=== PATIENT | female | born 1970 | race Caucasian/White ===

== ENCOUNTER → 2016-10-23 | Outpatient (CLI) | payer OTHER ==
--- NOTE | 2016-10-23 11:32 | REPMRS ---
Patient History The patient states she had a clinical breast exam in Patient is postmenopausal. Family history of prostate cancer in maternal grandfather and endometrial cancer in mother at age 50 or over. Digital Woman Screen Mammo: October 23, 2016 - Exam #: [id number] Bilateral CC and MLO view(s) were taken. Technologist: Sarah Lopez, Technologist Prior study comparison: October 22, 2015, digital woman screen mammo performed at [facility]. October 20, 2014, digital woman screen mammo performed at [facility]. FINDINGS: There are scattered fibroglandular densities. There has been no change in the appearance of the mammogram from the prior studies. There is a mild amount of residual fibroglandular tissue which is fairly symmetric. There is no interval development of dominant mass, architectural distortion, or clustered microcalcification suggestive of malignancy. Scattered lymph nodes are seen in the right axilla. No significant changes when compared with prior studies. ASSESSMENT: BI-RADS/ACR category 2 mammogram. Benign finding(s). Recommendation Routine screening mammogram in 1 year (for women over age 40). This mammogram was interpreted with the aid of an FDA-approved computer-aided dectection system. A. Negative x-ray reports should not delay biopsy if a dominant or clinically suspicious mass is present. B. Four to eight percent of cancers are not identified by mammography. C. Adenosis and dense breast may obscure an underlying neoplasm. Electronically Signed By: Dheeraj Gloria MD 10/23/16 0852
== END ==
LOC: M WHC 10:19
PROVIDERS: ATTEND Nurse Practitioner Women's Health
DX: Z12.31 Encounter for screening mammogram for malignant neoplasm of breast (principal)

== ENCOUNTER → 2016-10-23 | Outpatient (REF) | payer OTHER | LOC: M SFHCWAGY 10:37 | PROVIDERS: ATTEND Nurse Practitioner Women's Health | DX: Z12.4 Encounter for screening for malignant neoplasm of cervix (principal) ==

== ENCOUNTER → 2017-06-15 | Outpatient (CLI) | payer OTHER ==
[2017-06-15 13:35] LABS: BASO % 0.8 % (0.0-1.0); EOS # 0.1 10^3/uL (0.0-0.50); EOS % 2.3 % (0.0-3.0); IMMATURE GRANULOCYTE % 0.2 % (0-0); LYMPH # 1.7 10^3/uL (1.5-4.5); LYMPH % 32.4 % (24.0-44.0); MEAN CORPUSCULAR HEMOGLOBIN 27.6 pg (27.0-33.0); MEAN CORPUSCULAR VOLUME 88.9 fl (80.0-96.0); MONO # 0.5 10^3/uL (0.0-0.8); MONO % 8.6 % (0.0-5.0); NEUTROPHILS # 2.9 10^3/uL (1.8-7.7); NEUTROPHILS % 55.7 % (36.0-66.0); RED CELL DISTRIBUTION WIDTH 14.6 % (11.5-14.5); WHITE BLOOD COUNT 5.3 10^3/uL (4.0-10.0)
[2017-06-15 14:00] LABS: ALBUMIN 3.7 GM/DL (3.2-5.2); ALBUMIN/GLOBULIN RATIO 1.03 (1.00-1.93); ALKALINE PHOSPHATASE 95 U/L (45-117); ALT/SGPT 27 U/L (12-78); ANION GAP 7 MEQ/L (8-16); AST/SGOT 21 U/L (7-37); BILIRUBIN,TOTAL 0.4 MG/DL (0.2-1.0); BLOOD UREA NITROGEN 11 MG/DL (7-18); CALCIUM LEVEL 9.3 MG/DL (8.5-10.1); CARBON DIOXIDE LEVEL 28 MEQ/L (21-32); CHLORIDE LEVEL 107 MEQ/L (98-107); CHOLESTEROL LEVEL 172 MG/DL (<200); CREATININE FOR GFR 0.67 MG/DL (0.55-1.02); FREE T4 1.08 NG/DL (0.76-1.46); GLOMERULAR FILTRATION RATE > 60.0 (>58); GLUCOSE, FASTING 83 MG/DL (70-105); SODIUM LEVEL 142 MEQ/L (136-145); TOTAL PROTEIN 7.3 GM/DL (6.4-8.2); TRIGLYCERIDES LEVEL 39 MG/DL (<150)
[2017-06-15 14:10] LABS: POTASSIUM SERUM 5.4 MEQ/L (3.5-5.1)
[2017-06-15 14:19] LABS: ADD MANUAL DIFFER NO; DIFF SLIDE NUMBER 126; PLATELET COUNT, AUTOMATED 277 10^3/uL (150-450); PLT CLUMPS? POS FLAG; POS COUNT POS FLAG
== END ==
LOC: M SMT 08:00
PROVIDERS: ATTEND Family Medicine
DX: Z13.220 Encounter for screening for lipoid disorders (principal); Z13.29 Encounter for screening for other suspected endocrine disorder; Z13.0 Encounter for screening for diseases of the blood and blood-forming organs and certain disorders involving the immune mechanism

== ENCOUNTER → 2017-10-24 | Outpatient (REF) | payer OTHER | LOC: M SFHCWAGY 09:46 | DX: Z12.4 Encounter for screening for malignant neoplasm of cervix (principal) | CPT/HCPCS: G0123 ==

== ENCOUNTER → 2017-10-24 | Outpatient (CLI) | payer OTHER | LOC: M WHC 08:51 | DX: Z12.31 Encounter for screening mammogram for malignant neoplasm of breast (principal); Z78.0 Asymptomatic menopausal state | CPT/HCPCS: 77067 ==

== ENCOUNTER → 2018-06-21 | Outpatient (CLI) | payer OTHER ==
[2018-06-21 09:10] LABS: BASO % 0.5 % (0.0-1.0); EOS # 0.2 10^3/uL (0.0-0.50); EOS % 3.4 % (0.0-3.0); HEMOGLOBIN 13.8 g/dl (12.0-15.5); IMMATURE GRANULOCYTE % 0.4 % (0-3.0); LYMPH # 1.8 10^3/uL (1.5-4.5); LYMPH % 32.3 % (24.0-44.0); MEAN CORPUSCULAR HEMOGLOBIN 27.8 pg (27.0-33.0); MEAN CORPUSCULAR HGB CONC 31.4 g/dl (32.0-36.5); MEAN CORPUSCULAR VOLUME 88.5 fl (80.0-96.0); MONO # 0.4 10^3/uL (0.0-0.8); MONO % 7.5 % (0.0-5.0); NEUTROPHILS # 3.1 10^3/uL (1.8-7.7); NEUTROPHILS % 55.9 % (36.0-66.0); PLATELET COUNT, AUTOMATED 371 10^3/uL (150-450); RED BLOOD COUNT 4.97 10^6/uL (4.00-5.40); RED CELL DISTRIBUTION WIDTH 13.6 % (11.5-14.5); WHITE BLOOD COUNT 5.6 10^3/uL (4.0-10.0)
[2018-06-21 10:19] LABS: ALBUMIN 3.5 GM/DL (3.2-5.2); ALBUMIN/GLOBULIN RATIO 0.83 (1.00-1.93); ALKALINE PHOSPHATASE 110 U/L (45-117); ALT/SGPT 43 U/L (12-78); ANION GAP 7 MEQ/L (8-16); AST/SGOT 23 U/L (7-37); BILIRUBIN,TOTAL 0.3 MG/DL (0.2-1.0); BLOOD UREA NITROGEN 11 MG/DL (7-18); CALCIUM LEVEL 8.8 MG/DL (8.5-10.1); CARBON DIOXIDE LEVEL 28 MEQ/L (21-32); CHLORIDE LEVEL 107 MEQ/L (98-107); CHOLESTEROL LEVEL 188 MG/DL (<200); CHOLESTEROL RISK RATIO 2.647 (<5); CREATININE FOR GFR 0.75 MG/DL (0.55-1.30); FREE T4 0.93 NG/DL (0.76-1.46); GLOMERULAR FILTRATION RATE > 60.0 (>58); GLUCOSE, FASTING 76 MG/DL (70-100); HDL CHOLESTEROL 71 MG/DL (>40); LDL CHOLESTEROL 106 MG/DL (<100); NON-HDL-C 117 MG/DL; POTASSIUM SERUM 4.1 MEQ/L (3.5-5.1); SODIUM LEVEL 142 MEQ/L (136-145); TOTAL PROTEIN 7.7 GM/DL (6.4-8.2); TRIGLYCERIDES LEVEL 54 MG/DL (<150)
[2018-06-21 10:43] LABS: ESTIMATED AVERAGE GLUCOSE 105 MG/DL (60-110); HEMOGLOBIN A1c 5.3 %
== END ==
LOC: M LAB 08:33
DX: Z13.220 Encounter for screening for lipoid disorders (principal); Z13.29 Encounter for screening for other suspected endocrine disorder; Z13.0 Encounter for screening for diseases of the blood and blood-forming organs and certain disorders involving the immune mechanism
CPT/HCPCS: 84443

== ENCOUNTER → 2018-10-25 | Outpatient (CLI) | payer OTHER ==
--- NOTE | 2018-10-25 09:14 | REPMRS ---
Patient History The patient states she had a clinical breast exam in 09/2018. Patient is postmenopausal. Family history of prostate cancer in maternal grandfather, endometrial cancer at age 50 or over in mother. No Hormone Replacement Therapy 3D TOMOSYNTHESIS WAS PERFORMED. Digital Woman Screen Mammo: October 25, 2018 - Exam #: [id number] Bilateral CC and MLO view(s) were taken. Technologist: Trini Jain, Technologist Prior study comparison: October 24, 2017, digital woman screen mammo performed at [facility]. October 23, 2016, digital woman screen mammo performed at [facility]. FINDINGS: There are scattered fibroglandular densities. There has been no change in the appearance of the mammogram from the prior studies. There is a mild amount of residual fibroglandular tissue which is fairly symmetric. There is no interval development of dominant mass, architectural distortion, or clustered microcalcification suggestive of malignancy. Assessment: BI-RADS/ACR category 1 mammogram. Negative Mammogram. Recommendation Routine screening mammogram in 1 year (for women over age 40). This mammogram was interpreted with the aid of an FDA-approved computer-aided dectection system. Electronically Signed By: Sravan Butler MD 10/25/18 0914
== END ==
LOC: M WHC 08:29
PROVIDERS: ATTEND Nurse Practitioner Women's Health
DX: Z12.31 Encounter for screening mammogram for malignant neoplasm of breast (principal); Z80.42 Family history of malignant neoplasm of prostate; Z80.49 Family history of malignant neoplasm of other genital organs

== ENCOUNTER → 2019-02-21 | Outpatient (CLI) | payer OTHER ==
--- NOTE | 2019-02-21 09:40 | REP ---
Lumbar spine seven views and lateral views: There are no comparisons. Vertebral body heights and alignment are normal. There is degenerative disc disease at L 03/04, 04/05 and L5 S1. There is no spondylolysis or spondylolisthesis. There is no listhesis on the lateral views in flexion or extension. The pedicles and facets are unremarkable. The sacroiliac articulations are unremarkable. Impression: Degenerative disc disease at L3-4, 04/05 and L5 S1. There is no spondylolysis or spondylolisthesis. There is no listhesis on the lateral views in flexion or extension. Electronically Signed by Sravan Monterroso MD 02/21/2019 09:32 A
--- NOTE | 2019-02-21 09:40 | REP ---
AP pelvis: Mineralization is normal. The sacroiliac articulations are unremarkable. The right and left hip articulations are unremarkable. There are no calcifications. There is no fracture. Impression: Negative AP pelvis. Electronically Signed by Sravan Monterroso MD 02/21/2019 09:32 A
== END ==
LOC: M SMT 09:15
PROVIDERS: ATTEND Physician Assistant
DX: M51.36 Other intervertebral disc degeneration, lumbar region (principal); M51.37 Other intervertebral disc degeneration, lumbosacral region

== ENCOUNTER → 2019-12-26 | Outpatient (REF) | payer OTHER | LOC: M SFHCWAGY 17:42 | PROVIDERS: ATTEND Nurse Practitioner Women's Health | DX: Z12.4 Encounter for screening for malignant neoplasm of cervix (principal) ==

== ENCOUNTER → 2019-12-26 | Outpatient (CLI) | payer OTHER ==
--- NOTE | 2019-12-26 11:11 | REPMRS ---
Patient History The patient states she had a clinical breast exam in November 2019.Family history of prostate cancer in maternal grandfather, endometrial cancer at age 50 or over in mother. No Hormone Replacement Therapy Digital Woman Screen Mammo: December 26, 2019 - Exam #: [id number] Bilateral CC and MLO view(s) were taken. Technologist: Jess Rojas, Technologist Prior study comparison: October 25, 2018, bilateral digital woman screen mammo performed at [facility]. October 24, 2017, digital woman screen mammo performed at [facility]. October 23, 2016, digital woman screen mammo performed at [facility]. FINDINGS: The breast tissue is almost entirely fat. The Volpara volumetric breast density category is: A. There has been no change in the appearance of the mammogram from the prior studies. There is no interval development of dominant mass, architectural distortion, or grouped microcalcification typical of malignancy. 3-D tomosynthesis shows no additional findings. Assessment: BI-RADS/ACR category 1 mammogram. Negative Mammogram. Recommendation Routine screening mammogram of both breasts in 1 year (for women over age 40). This patient's Lifetime Breast Cancer RIsk is estimated at 11.4 %. This mammogram was interpreted with the aid of an FDA-approved computer-aided dectection system. Electronically Signed By: Fabian Calixto MD 12/26/19 7179
== END ==
LOC: M WHC 08:54
PROVIDERS: ATTEND Nurse Practitioner Women's Health
DX: Z12.31 Encounter for screening mammogram for malignant neoplasm of breast (principal)

== ENCOUNTER → 2020-01-26 | Outpatient (CLI) | payer OTHER ==
[2020-01-26 12:48] LABS: BASO # 0.1 10^3/uL (0.0-0.2); EOS # 0.1 10^3/uL (0.0-0.5); HEMATOCRIT 43.3 % (36.0-47.0); HEMOGLOBIN 13.4 g/dl (12.0-15.5); LYMPH % 33.8 % (24.0-44.0); MEAN CORPUSCULAR HEMOGLOBIN 27.9 pg (27.0-33.0); MEAN CORPUSCULAR HGB CONC 30.9 g/dl (32.0-36.5); MONO # 0.5 10^3/uL (0.0-0.8); MONO % 7.8 % (0.0-5.0); NEUTROPHILS # 3.3 10^3/uL (1.5-8.5); NEUTROPHILS % 55.1 % (36.0-66.0); PLATELET COUNT, AUTOMATED 369 10^3/uL (150-450); RED BLOOD COUNT 4.81 10^6/uL (4.00-5.40)
[2020-01-26 12:59] LABS: ALBUMIN 3.7 GM/DL (3.2-5.2); ALT/SGPT 25 U/L (12-78); BILIRUBIN,TOTAL 0.4 MG/DL (0.2-1.0); BLOOD UREA NITROGEN 14 MG/DL (7-18); CALCIUM LEVEL 9.5 MG/DL (8.5-10.1); CARBON DIOXIDE LEVEL 30 MEQ/L (21-32); CHLORIDE LEVEL 108 MEQ/L (98-107); CHOLESTEROL LEVEL 187 MG/DL (<200); CHOLESTEROL RISK RATIO 2.633 (<5); FREE T4 1.04 NG/DL (0.76-1.46); GLOMERULAR FILTRATION RATE > 60.0 (>58); GLUCOSE, FASTING 80 MG/DL (70-100); HDL CHOLESTEROL 71 MG/DL (>40); LDL CHOLESTEROL 106 MG/DL (<100); NON-HDL-C 116 MG/DL; SODIUM LEVEL 143 MEQ/L (136-145); TOTAL PROTEIN 7.8 GM/DL (6.4-8.2); TRIGLYCERIDES LEVEL 51 MG/DL (<150)
[2020-01-26 13:02] LABS: TOTAL 25(OH) VITAMIN D 22.9 NG/ML (30.0-100.0)
[2020-01-26 15:33] LABS: HEMOGLOBIN A1c 5.7 %
== END ==
LOC: M PLALAB 09:10
PROVIDERS: ATTEND Physician Assistant
DX: Z13.29 Encounter for screening for other suspected endocrine disorder (principal); Z13.220 Encounter for screening for lipoid disorders

== ENCOUNTER → 2020-08-24 | Outpatient (CLI) | payer OTHER ==
[2020-08-24 07:48] LABS: WHITE BLOOD COUNT 5.7 10^3/uL (4.0-10.0)
[2020-08-24 07:49] LABS: BASO # 0.1 10^3/uL (0.0-0.2); BASO % 1.1 % (0.0-1.0); EOS # 0.1 10^3/uL (0.0-0.5); EOS % 2.5 % (0.0-3.0); HEMATOCRIT 41.1 % (36.0-47.0); HEMOGLOBIN 12.9 g/dl (12.0-15.5); LYMPH % 34.5 % (24.0-44.0); MEAN CORPUSCULAR HEMOGLOBIN 27.3 pg (27.0-33.0); MEAN CORPUSCULAR HGB CONC 31.4 g/dl (32.0-36.5); MEAN CORPUSCULAR VOLUME 86.9 fl (80.0-96.0); MONO # 0.5 10^3/uL (0.0-0.8); MONO % 9.2 % (0.0-5.0); NEUTROPHILS % 52.5 % (36.0-66.0); PLATELET COUNT, AUTOMATED 357 10^3/uL (150-450); RED BLOOD COUNT 4.73 10^6/uL (4.00-5.40)
[2020-08-24 08:30] LABS: ALBUMIN 3.7 GM/DL (3.2-5.2); ALT/SGPT 30 U/L (12-78); BILIRUBIN,TOTAL 0.4 MG/DL (0.2-1.0); BLOOD UREA NITROGEN 13 MG/DL (7-18); CALCIUM LEVEL 9.5 MG/DL (8.5-10.1); CARBON DIOXIDE LEVEL 28 MEQ/L (21-32); CHLORIDE LEVEL 105 MEQ/L (98-107); CHOLESTEROL LEVEL 165 MG/DL (<200); CHOLESTEROL RISK RATIO 2.323 (<5); CREATININE FOR GFR 0.76 MG/DL (0.55-1.30); FREE T4 1.11 NG/DL (0.76-1.46); GLOMERULAR FILTRATION RATE > 60.0 (>58); GLUCOSE, FASTING 81 MG/DL (70-100); HDL CHOLESTEROL 71 MG/DL (>40); LDL CHOLESTEROL 86 MG/DL (<100); NON-HDL-C 94 MG/DL; POTASSIUM SERUM 4.1 MEQ/L (3.5-5.1); SODIUM LEVEL 142 MEQ/L (136-145); TOTAL PROTEIN 7.6 GM/DL (6.4-8.2); TRIGLYCERIDES LEVEL 42 MG/DL (<150)
== END ==
LOC: M LAB 07:02
PROVIDERS: ATTEND Family Medicine
DX: Z13.220 Encounter for screening for lipoid disorders (principal); Z13.0 Encounter for screening for diseases of the blood and blood-forming organs and certain disorders involving the immune mechanism; Z13.29 Encounter for screening for other suspected endocrine disorder

== ENCOUNTER → 2020-12-28 | Outpatient (CLI) | payer OTHER ==
--- NOTE | 2020-12-28 09:54 | REPMRS ---
Patient History The patient states she had a clinical breast exam in December 2020. Family history of prostate cancer in maternal grandfather, endometrial cancer at age 50 or over in mother. No Hormone Replacement Therapy Patient states no breast complaints today. Patient has signed MRS History Sheet. Digital Woman Screen Mammo: December 28, 2020 - Exam #: [id number] Bilateral CC and MLO view(s) were taken. Technologist: Juani Wall, Technologist Prior study comparison: December 26, 2019, bilateral digital woman screen mammo performed at [facility]. October 25, 2018, bilateral digital woman screen mammo performed at [facility]. FINDINGS: There are scattered fibroglandular densities. Screening. Digital screening (2D) mammography was performed bilaterally in the CC and MLO projections. Additionally, breast tomosynthesis (3D mammography) was performed bilaterally in the CC and MLO projections. Todays exam was compared to the prior exams. By history, the patient has no complaints of a palpable breast abnormality or other significant breast complaints. The breasts are unchanged in size and shape. There are no jessie-soft tissue densities or spiculated masses. There is no internal architectural distortion. There are no suspicious jessie-calcific clusters. Skin thickening or nipple retraction is not present. IMPRESSION: BI-RADS Category 2- Benign Findings. There is no evidence of malignant alteration of the breasts. Followup examination recommended in one year. The Volpara volumetric breast density category is B, there are scattered areas of fibroglandular density. This mammogram was read with the assistance of Herb WiSpryDejahAltierre,an FDA approved computer aided detection system for mammography. The lifetime Tyrer-Cuzick score is 11.2 % Negative x-ray reports should not delay surgical consultation if a dominant or clinically suspicious mass is present. Not all breast cancers can be identified by mammography. Therefore, we recommend that you continue to perform regular breast self-examination and physical examination and then promptly contact your physician of any concerns or changes. Adenosis and dense breasts may obscure an underlying neoplasm. Assessment: BI-RADS/ACR category 2 mammogram. Benign Findings. Recommendation Routine screening mammogram of both breasts in 1 year. Electronically Signed By: Bryce Deras DO 12/28/20 0953
== END ==
LOC: M WHC 07:47
PROVIDERS: ATTEND Nurse Practitioner Women's Health
DX: Z12.31 Encounter for screening mammogram for malignant neoplasm of breast (principal); Z80.42 Family history of malignant neoplasm of prostate; Z80.49 Family history of malignant neoplasm of other genital organs

== ENCOUNTER 2021-06-03 21:45 | Day surgery (SDC) | payer OTHER ==
[~2021-06-03] VITALS: Ht 162.6 cm; Wt 99.5 kg
--- OUTSIDE RECORDS SUMMARY | 2021-06-03 21:54 | CCD ---
Author Author [facility] Organization [facility] Address Unknown Phone Unavailable Care Team Providers Care Collection Support Specialist Name Role Phone MEDENT_806, NA Unavailable Unavailable LETTIERE, Mahsa WHITE Unavailable Unavailable LETTIERE, Mahsa WHITE Unavailable Unavailable LETTIERE, Mahsa WHITE Unavailable Unavailable LETTIERE, Mahsa WHITE Unavailable Unavailable LETTIERE, Mahsa WHITE Unavailable Unavailable LETTIERE, Mahsa WHITE Unavailable Unavailable LETTIERE, Mahsa WHITE Unavailable Unavailable LETTIERE, Mahsa WHITE Unavailable Unavailable LETTIERE, Mahsa WHITE Unavailable Unavailable LETTIERE, Mahsa WHITE Unavailable Unavailable LETTIERE, Mahsa WHITE Unavailable Unavailable LETTIERE, Mahsa PADILLA PA Unavailable Unavailable LETTIERE, Mahsa PADILLA PA Unavailable Unavailable LETTIERE, Mahsa PADILLA PA Unavailable Unavailable LETTIERE, Mahsa PADILLA PA Unavailable Unavailable LETTIERE, Mahsa PADILLA PA Unavailable Unavailable LETTIERE, Mahsa PADILLA PA Unavailable Unavailable LETTIERE, Mahsa PADILLA PA Unavailable Unavailable LETTIERE, Mahsa PADILLA PA Unavailable Unavailable LETTIERE, Mahsa PADILLA PA Unavailable Unavailable LETTIERE, Mahsa PADILLA PA Unavailable Unavailable LETTIERE, Mahsa PADILLA PA Unavailable Unavailable LETTIERE, Mahsa PADILLA PA Unavailable Unavailable LETTIERE, Mahsa PADILLA PA Unavailable Unavailable LETTIERE, Mahsa PADILLA PA Unavailable Unavailable LETTIERE, Mahsa PADILLA PA Unavailable Unavailable LETTIERE, A RANDY PA Unavailable Unavailable LETTIERE, A RANDY PA Unavailable Unavailable LETTIERE, A RANDY PA Unavailable Unavailable LETTIERE, A RANDY PA Unavailable Unavailable LETTIERE, A RANDY PA Unavailable Unavailable KOKO-ROBIN, ERIKA DO Unavailable Unavailable KOKO-ROBIN, ERIKA DO Unavailable Unavailable KOKO-ROBIN, ERIKA DO Unavailable Unavailable KOKO-ROBIN, ERIKA DO Unavailable Unavailable KOKO-ROBIN, ERIKA DO Unavailable Unavailable KOKO-ROBIN, ERIKA DO Unavailable Unavailable KOKO-ROBIN, ERIKA DO Unavailable Unavailable KOKO-ROBIN, ERIKA DO Unavailable Unavailable KOKO-ROBIN, ERIKA DO Unavailable Unavailable KOKO-ROBIN, ERIKA DO Unavailable Unavailable KOKO-ROBIN, ERIKA DO Unavailable Unavailable KOKO-ROBIN, ERIKA DO Unavailable Unavailable KOKO-ROBIN, ERIKA DO Unavailable Unavailable KOKO-ROBIN, ERIKA DO Unavailable Unavailable KOKO-ROBIN, ERIKA DO Unavailable Unavailable KOKO-ROBIN, ERIKA DO Unavailable Unavailable KOKO-ROBIN, ERIKA DO Unavailable Unavailable KOKO-ROBIN, ERIKA DO Unavailable Unavailable KOKO-ROBIN, ERIKA DO Unavailable Unavailable KOKO-ROBIN, ERIKA DO Unavailable Unavailable KOKO-ROBIN, ERIKA DO Unavailable Unavailable KOKO-ROBIN, ERIKA DO Unavailable Unavailable KOKO-ROBIN, ERIKA DO Unavailable Unavailable KOKO-ROBIN, ERIKA DO Unavailable Unavailable KOKO-ROBIN, ERIKA DO Unavailable Unavailable KOKO-ROBIN, ERIKA DO Unavailable Unavailable KOKO-ROBIN, ERIKA DO Unavailable Unavailable KOKO-ROBIN, ERIKA DO Unavailable Unavailable KOKO-ROBIN, ERIKA DO Unavailable Unavailable KOKO-ROBIN, ERIKA DO Unavailable Unavailable KOKO-ROBIN, ERIKA DO Unavailable Unavailable KOKO-ROBIN, ERIKA DO Unavailable Unavailable KOKO-ROBIN, ERIKA DO Unavailable Unavailable KOKO-ROBIN, ERIKA DO Unavailable Unavailable KOKO-ROBIN, ERIKA DO Unavailable Unavailable KOKO-ROBIN, ERIKA DO Unavailable Unavailable KOKO-ROBIN, ERIKA DO Unavailable Unavailable KOKO-ROBIN, ERIKA DO Unavailable Unavailable KOKO-ROBIN, ERIKA DO Unavailable Unavailable KOKO-ROBIN, ERIKA DO Unavailable Unavailable KOKO-ROBIN, ERIKA DO Unavailable Unavailable KOKO-ROBIN, ERIKA DO Unavailable Unavailable KOKO-ROBIN, ERIKA DO Unavailable Unavailable KOKO-ROBIN, ERIKA DO Unavailable Unavailable KOKO-ROBIN, ERIKA DO Unavailable Unavailable KOKO-ROBIN, ERIKA DO Unavailable Unavailable KOKO-ROBIN, ERIKA DO Unavailable Unavailable KOKO-ROBIN, ERIKA DO Unavailable Unavailable KOKO-ROBIN, ERIKA DO Unavailable Unavailable KOKO-ROBIN, ERIKA DO Unavailable Unavailable KOKO-ROBIN, ERIKA DO Unavailable Unavailable KOKO-ROBIN, ERIKA DO Unavailable Unavailable KOKO-ROBIN, ERIKA DO Unavailable Unavailable KOKO-ROBIN, ERIKA DO Unavailable Unavailable KOKO-ROBIN, ERIKA DO Unavailable Unavailable KOKO-ROBIN, ERIKA DO Unavailable Unavailable KOKO-ROBIN, ERIKA DO Unavailable Unavailable KOKO-ROBIN, ERIKA DO Unavailable Unavailable KOKO-ROBIN, ERIKA DO Unavailable Unavailable KOKO-ROBIN, ERIKA DO Unavailable Unavailable KOKO-ROBIN, ERIKA DO Unavailable Unavailable KOKO-ROBIN, ERIKA DO Unavailable Unavailable KOKO-ROBIN, ERIKA DO Unavailable Unavailable KOKO-ROBIN, ERIKA DO Unavailable Unavailable KOKO-ROBIN, ERIKA DO Unavailable Unavailable KOKO-ROBIN, ERIKA DO Unavailable Unavailable KOKO-ROBIN, ERIKA DO Unavailable Unavailable KOKO-ROBIN, ERIKA DO Unavailable Unavailable KOKO-ROBIN, ERIKA DO Unavailable Unavailable KOKO-ROBIN, ERIKA DO Unavailable Unavailable KOKO-ROBIN, ERIKA DO Unavailable Unavailable KOKO-ROBIN, ERIKA DO Unavailable Unavailable KOKO-ROBIN, ERIKA DO Unavailable Unavailable KOKO-ROBIN, ERIKA DO Unavailable Unavailable KOKO-ROBIN, ERIKA DO Unavailable Unavailable KOKO-ROBIN, ERIKA DO Unavailable Unavailable KOKO-ROBIN, ERIKA DO Unavailable Unavailable KOKO-ROBIN, ERIKA DO Unavailable Unavailable KOKO-ROBIN, ERIKA DO Unavailable Unavailable KOKO-ROBIN, ERIKA DO Unavailable Unavailable KOKO-ROBIN, ERIKA DO Unavailable Unavailable KOKO-ROBIN, ERIKA DO Unavailable Unavailable KOKO-ROBIN, ERIKA DO Unavailable Unavailable KOKO-ROBIN, ERIKA DO Unavailable Unavailable Melinda Pinzon MD Unavailable Unavailable Melinda Pinzon MD Unavailable Unavailable Melinda Pinzon MD Unavailable Unavailable Melinda Pinzon MD Unavailable Unavailable Melinda Pinzon MD Unavailable Unavailable Melinda Pinzon MD Unavailable Unavailable Melinda Pinzon MD Unavailable Unavailable PinzonMelinda escalante MD Unavailable Unavailable Pinzon, C Christiane Unavailable Unavailable PinzonMelinda Christiane Unavailable Unavailable Pinzon, C Christiane Unavailable Unavailable Pinzon, C Christiane Unavailable Unavailable Melinda Pinzon MD Unavailable Unavailable Melinda Pinzon MD Unavailable Unavailable Melinda Pinzon MD Unavailable Unavailable Pinzon, Melinda Grande MD Unavailable Unavailable Melinda Pinzon MD Unavailable Unavailable Melinda Pinzon MD Unavailable Unavailable Melinda Pinzon MD Unavailable Unavailable Melinda Pinzon MD Unavailable Unavailable Melinda Pinzon MD Unavailable Unavailable Melinda Pinzon MD Unavailable Unavailable Pinzon, C Christiane Unavailable Unavailable Jeromy C Christiane Unavailable Unavailable Pinzon, C Christiane Unavailable Unavailable Re-disclosure Warning The records that you are about to access may contain information from federally-assisted alcohol or drug abuse programs. If such information is present, then the following federally mandated warning applies: This information has been disclosed to you from records protected by federal confidentiality rules (42 CFR part 2). The federal rules prohibit you from making any further disclosure of this information unless further disclosure is expressly permitted by the written consent of the person to whom it pertains or as otherwise permitted by 42 CFR part 2. A general authorization for the release of medical or other information is NOT sufficient for this purpose. The Federal rules restrict any use of the information to criminally investigate or prosecute any alcohol or drug abuse patient.The records that you are about to access may contain highly sensitive health information, the redisclosure of which is protected by Article 27-F of the [facility] Public Health law. If you continue you may have access to information: Regarding HIV / AIDS; Provided by facilities licensed or operated by the [facility] Office of Mental Health; or Provided by the [facility] Office for People With Developmental Disabilities. If such information is present, then the following [facility] mandated warning applies: This information has been disclosed to you from confidential records which are protected by state law. State law prohibits you from making any further disclosure of this information without the specific written consent of the person to whom it pertains, or as otherwise permitted by law. Any unauthorized further disclosure in violation of state law may result in a fine or halfway sentence or both. A general authorization for the release of medical or other information is NOT sufficient authorization for further disc losure. Family History Family Member Name Family Member Gender Family Member Status Date o f Status Description Data Source(s) Unknown Unknown Problem MEDENT ([facility]) Unknown Female Problem MEDENT ([facility]) Unknown Female Problem MEDENT ([facility]) Unknown Female Problem MEDENT ([facility]) Encounters Encounter Providers Location Date Indications Data Source(s ) Outpatient Attender: Christiane Pinzon MD 1 08/03/2020 07:25:28 PM EDT - 06/03/2021 09:26:32 PM EDT [facility] ([facility]) Outpatient Attender: RANDY canales 03/15/2021 01:00:00 PM EDT MEDENT ([facility], [facility]) Outpatient [facility], [facility] [id number] 12/28/2020 12:00:00 AM EDT eCW1 ([facility]) Outpatient Attender: ERIKA YING DO [facility] 08/16/2020 12:40:00 PM EST MEDENT ([facility]) Outpatient Attender: NA MEDENT_806 [facility] 04/22/2020 03:15:00 PM EDT MEDENT ([facility]) Immunizations Vaccine Date Status Description Data Source(s) COVID-19 VACCINE Pfizer 05/04/2021 12:00:00 AM EDT completed [facility] Vaccine Series Complete: YESThis Data wa s Submitted to [facility]. COVID-19 VACC, MRNA(PFIZER)/PF 05/04/2021 12:00:00 AM EDT completed [facility] COVID-19 VACCINE Pfizer 09/08/2020 12:00:00 AM EST completed [facility] Vaccine Series Complete: YESThis Data wa s Submitted to [facility]. COVID-19 VACCINE Pfizer 08/18/2020 12:00:00 AM EST completed [facility] Vaccine Series Complete: NOThis Data was Submitted to [facility]. New in 2011. IIV4 04/22/2020 03:26:00 PM EDT completed MEDENT ([facility]) Medications Medication Brand Name Start Date Product Form Dose Route Admi nistrative Instructions Pharmacy Instructions Status Indications Reaction Description Data Source(s) No Active Medications 03/15/2021 12:00:00 AM EDT completed MEDENT ([facility], [facility]) Cephalexin 500 MG Oral Tablet Cephalexin 03/15/2021 12:00:00 AM EDT ORAL active MEDENT ([facility], [facility]) 500 mg 03/15/2021 12:00:00 AM EDT tablet 40 TAKE TWO TABLETS BY MOUTH TWICE A DAY FOR 10 DAYS TAKE TWO TABLETS BY MOUTH TWICE A DAY FOR 10 DAYS SOLD : 03/15/2021 [facility] Immunization Administration Single Or Combination 04/22/2020 12:00:00 AM EDT completed MEDENT ([facility]) Medication administered onsite Insurance Providers Payer name Policy type / Coverage type Policy ID Covered constitution party ID Covered constitution party's relationship to kennedy Policy [place] Plan Information [id number] [facility] 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 [id number] Self [id number] [facility] Part B [id number] Self [id number] [facility] [id number] Self [id number] [facility] Part B [id number] Self [id number] [employer] [id number] S elf [id number] [employer] [id number] [facility] [id number] SP [id number] [employer] [id number] S elf [id number] [employer] [id number] S elf [id number] [employer] [id number] SP [id number] [employer] [id number] SP [id number] [employer] [id number] S elf [id number] [employer] [id number] Self [employer] [id number] S elf [facility] [employer] Part B [id number] Self [id number] [facility] O [id number] O [id number] Problems, Conditions, and Diagnoses No Information Surgeries/Procedures Procedure Description Date Indications Data Source(s) OFFICE OUTPATIENT NEW 30 MINUTES 03/15/2021 12:00:00 A M EDT MEDENT ([facility], [facility]) Results ID Date Data Source [facility] DIGITAL / RAMON BILATERAL MAMMO SCREENING (Ultraso und if indicated) 12/28/2020 12:00:00 AM EDT eCW1 ([facility]ending [facility] To [facility]) Name Value Range Interpretation Code Description Data Stephanie rce(s) Supporting Document(s) [facility] DIGITAL / RAMON BILAT ERAL MAMMO SCREENING (Ultrasound if indicated) eCW1 (Pending [facility] To [facility]) ID Date Data Source [id number] 08/24/2020 07:14:00 AM EST MEDENT ([facility]) Name Value Range Interpretation Code Description Data Stephanie rce(s) Supporting Document(s) White Blood Count 5.7 10 4.0-10.0 Normal (applies to non-numeri c results) MEDENT ([facility]) Red Blood Count 4.73 10 4.00-5.40 Normal (applies to non-numeric results) MEDENT ([facility]) Hemoglobin 12.9 g/dL 12.0-15.5 Normal (applies to non-numeric resul ts) MEDENT ([facility]) Hematocrit 41.1 % 36.0-47.0 Normal (applies to non-numeric resul ts) MEDENT ([facility]) Mean Corpuscular Volume 86.9 fl 80.0-96.0 Normal ( applies to non-numeric results) MEDENT ([facility]) Mean Corpuscular Hemoglobin 27.3 pg 27.0-33.0 Norm al (applies to non-numeric results) MEDENT ([facility]) Mean Corpuscular HGB Conc 31.4 g/dL 32.0-36.5 Below low normal MEDENT ([facility]) Red Cell Distribution Width 13.8 % 11.5-14.5 Norm al (applies to non-numeric results) MEDENT ([facility]) Neutrophils % 52.5 % 36.0-66.0 Normal (applies to non-numeric re sults) MEDENT ([facility]) Platelet Count, Automated 357 10 150-450 Normal (applies to non-numeric results) MEDENT ([facility]) Dyer % 9.2 % 0.0-5.0 Above high normal MEDENT ([facility]) Lymph % 34.5 % 24.0-44.0 Normal (applies to non-numeric resul ts) MEDENT ([facility]) Immature Granulocyte % 0.2 % 0-3.0 Normal (applies to non-n umeric results) MEDENT ([facility]) Eos % 2.5 % 0.0-3.0 Normal (applies to non-numeric resul ts) MEDENT ([facility]) Baso % 1.1 % 0.0-1.0 Above high normal MEDENT ([facility]) Nucleated Red Blood Cell % 0.0 % 0-0 Normal (applies to n on-numeric results) MEDENT ([facility]) Neutrophils # 3.0 10 1.5-8.5 Normal (applies to non-numeric re sults) MEDENT ([facility]) Eos # 0.1 10 0.0-0.5 Normal (applies to non-numeric resul ts) MEDENT ([facility]) Lymph # 2.0 10 1.5-5.0 Normal (applies to non-numeric resul ts) MEDENT ([facility]) Dyer # 0.5 10 0.0-0.8 Normal (applies to non-numeric resul ts) MEDENT ([facility]) Baso # 0.1 10 0.0-0.2 Normal (applies to non-numeric resul ts) MEDENT ([facility]) ID Date Data Source [id number] 08/24/2020 07:14:00 AM EST [facility] ([facility]) Name Value Range Interpretation Code Description Data Stephanie rce(s) Supporting Document(s) Triglycerides Level 42 mg/dL Normal (applies to non-nume gonzález results) MEDENT ([facility]) Cholesterol Level 165 mg/dL Normal (applies to non-numeri c results) MEDENT ([facility]) HDL Cholesterol 71 mg/dL Normal (applies to non-numeric results) MED[facility] ([facility]) LDL Cholesterol 86 mg/dL Normal (applies to non-numeric results) MEDENT ([facility]) Cholesterol Risk Ratio 2.323 Normal (applies to non-n umeric results) MEDENT ([facility]) Non-HDL-C 94 mg/dL Normal (applies to non-numeric resul ts) MEDENT ([facility]) ID Date Data Source [id number] 08/24/2020 07:14:00 AM EST MEDENT ([facility]) Name Value Range Interpretation Code Description Data Stephanie rce(s) Supporting Document(s) Thyroid Stimulating Hormone 1.830 uIU/ML 0.358-3.740 Norm al (applies to non- numeric results) [facility] Free T4 1.11 ng/dL 0.76-1.46 Normal (applies to non-numeric resul ts) [facility]) ID Date Data Source [id number] 08/24/2020 07:14:00 AM EST MEDENT ([facility]) Name Value Range Interpretation Code Description Data Stephanie rce(s) Supporting Document(s) Blood Urea Nitrogen 13 mg/dL 7-18 Normal (applies to non-nume gonzález results) [facility]) Glucose, Fasting 81 mg/dL 70-100 Normal (applies to non-numeric results) [facility] ([facility]) Glomerular Filtration Rate Laboratory test result Normal (applies to non- numeric results) [facility] ([facility]) <content>Units are mL/min/1.73 m2</content>
<content></content>
<content>Chronic Kidney Disease Staging per NKF:</content>
<content></content>
<content>Stage I & II GFR >=60 Normal to Mildly Decreased</content>
<content>Stage III GFR 30-59 Moderately Decreased</content>
<content>Stage IV GFR 15-29 Severely Decreased</content>
<content>Stage V GFR <15 Very Little GFR Left</content>
<content>ESRD GFR <15 on ELECTROLYSIS OPERATOR</content>
<content></content> Creatinine For GFR 0.76 mg/dL 0.55-1.30 Normal (applies to non -numeric results) [facility]) Sodium Level 142 meq/L 136-145 Normal (applies to non-numeric res ults) [facility]) Chloride Level 105 meq/L 98-107 Normal (applies to non-numeric r esults) [facility] ([facility]) Potassium Serum 4.1 meq/L 3.5-5.1 Normal (applies to non-numeric results) MED[facility] ([facility]) Anion Gap 9 meq/L 8-16 Normal (applies to non-numeric resul ts) MED[facility] ([facility]) Carbon Dioxide Level 28 meq/L 21-32 Normal (applies to non-num adali results) [facility]) Calcium Level 9.5 mg/dL 8.5-10.1 Normal (applies to non-numeric re sults) MED[facility] ([facility]) Alkaline Phosphatase 102 U/L 45-117 Normal (applies to non-num adali results) MED[facility] ([facility]) Alt/SGPT 30 U/L 12-78 Normal (applies to non-numeric resul ts) MED[facility] ([facility]) Ast/Sgot 18 U/L 7-37 Normal (applies to non-numeric resul ts) MEDENT ([facility]) Total Protein 7.6 GM/DL 6.4-8.2 Normal (applies to non-numeric re sults) MED[facility] ([facility]) Bilirubin,Total 0.4 mg/dL 0.2-1.0 Normal (applies to non-numeric results) MED[facility] ([facility]) Albumin/Globulin Ratio 0.9 1.2-2.2 Below low normal [facility] ([facility]) Albumin 3.7 GM/DL 3.2-5.2 Normal (applies to non-numeric resul ts) MEDENT ([facility]) Procedure Social History Code Duration Value Status Description Data Source(s ) Smoking 12/28/2020 12:00:00 AM EDT Never Smoker completed Never S juanpablo eCW1 (Pending Sale To [facility]) Smoking 08/16/2020 12:00:00 AM EST Never Smoked Cigarettes com pleted Never Smoked Cigarettes [facility]) Vital Signs ID Date Data Source UNK Name Value Range Interpretation Code Description Data Source(s) Systolic blood pressure 126 mm[Hg] 126 mm[Hg] M EDENT ([facility], [facility]) Diastolic blood pressure 82 mm[Hg] 82 mm[Hg] [facility]) Heart rate 98 /min 98 /min [facility] ([facility], [facility]) Respiratory rate 16 /min 16 /min MEDENT ( [facility], [facility]) Oxygen saturation in Arterial blood by Pulse oximetry 99 % 99 % MEDENT ([facility], [facility]) Body temperature 97.2 [degF] 97.2 [degF] MEDENT ([facility], [facility]) Body weight 225.00 [lb_av] 225.00 [lb_av] MEDEN T ([facility], [facility]) Body height 64 [in_i] 64 [in_i] MEDENT ([facility]) 5'4" Body mass index (BMI) [Ratio] 38.6 kg/m2 38.6 k g/m2 MEDENT ([facility]) Body weight 228 [lb_av] 228 [lb_av] W1 ([facility]) Body weight 103.[address] [facility] ([facility]) Body height 63.5 [in_i] 63.5 [in_i] W1 ([facility]) Body mass index (BMI) [Ratio] 39.75 kg/m2 39.75 kg/m2 W1 ([facility]) Systolic blood pressure 136 mm[Hg] 136 mm[Hg] e CW1 ([facility]ending [facility] To [facility]) Diastolic blood pressure 88 mm[Hg] 88 mm[Hg] eCW1 (Pending Sale To [facility]) Systolic blood pressure 126 mm[Hg] 126 mm[Hg] M EDENT ([facility]) Diastolic blood pressure 78 mm[Hg] 78 mm[Hg] MEDENT ([facility]) Body height 63.3 [in_i] 63.3 [in_i] MEDENT ([facility]) 5'3.30" Body weight 219.00 [lb_av] 219.00 [lb_av] MEDEN T ([facility]) Body mass index (BMI) [Ratio] 38.4 kg/m2 38.4 k g/m2 MEDENT ([facility]) Heart rate 97 /min 97 /min MEDENT ([facility]) Respiratory rate 19 /min 19 /min MEDENT ( [facility]) Body temperature 97.2 [degF] 97.2 [degF] HUMBERTO ([facility]) Oxygen saturation in Arterial blood by Pulse oximetry 98 % 98 % HUMBERTO ([facility]) Husser body weight 115 [lb_av] 115 [lb_av] LEWIS Chambers ([facility])
--- OUTSIDE RECORDS SUMMARY | 2021-06-03 21:54 | CCD | Continuity of Care Document ---
Author Author [facility] Organization Unknown Address [address] [place] [address] Phone [phone] Care Team Providers Care Automotive Manufacturer Name Role Phone Dejon Linares MD AUTM [phone] Problems Description No Information Available Social History Type Date Description Comments Sex Unknown ETOH Use Rarely consumes alcohol Tobacco Use Start: Unknown Patient has never smoked Allergies, Adverse Reactions, Alerts Description No Known Drug Allergies Medications Active Medications SIG Qnty Indications Ordering Provide r Date Cephalexin 500mg Tablets take 2 tabs by mouth twice a day for 10 days 40tabs S20.362A James Valdovinos JR., M.D. 03/15/2021 History Medications No Active Medications Unknown - 03/15/2021 Immunizations Description No Information Available Vital Signs Date Vital Result Comment 03/15/2021 12:30pm BP Systolic 126 mmHg BP Diastolic 82 mmHg Heart Rate 98 /min Respiratory Rate 16 /min O2 % BldC Oximetry 99 % Body Temperature 97.2 F Weight 225.00 lb Height 64 inches 5'4" BMI (Body Mass Index) 38.6 kg/m2 Pain Level 2 09/05/2016 7:24pm BP Systolic 136 mmHg BP Diastolic 87 mmHg Heart Rate 101 /min Respiratory Rate 18 /min O2 % BldC Oximetry 99 % Body Temperature 99.1 F Weight 200.00 lb Height 64 inches 5'4" BMI (Body Mass Index) 34.3 kg/m2 Pain Level 5 Results Description No Information Available Procedures Date Code Description Status 03/15/2021 57113 Office/Outpatient New Low MDM 30 -44 Minutes Completed Medical Devices Description No Information Available Encounters Type Date Location Provider Dx Diagnosis Office Visit 03/15/2021 1:00p Main Office CHRISTOPHER Waters S20 .362A Insect bite (nonvenomous) of left front wall of thorax, init S70.361A Insect bite (nonvenomous), r ight thigh, initial encounter T63.441A Toxic effect of venom of bee s, accidental, init Assessments Date Code Description Provider 03/15/2021 S20.362A Insect bite (nonveno mous) of left front wall of thorax, initial encounter CHRISTOPHER Waters 03/15/2021 S70.361A Insect bite (nonvenomous), right thigh, initial encounter CHRISTOPHER Waters 03/15/2021 T63.441A Toxic effect of veno m of bees, accidental (unintentional), initial encounter CHRISTOPHER Waters Plan of Treatment 03/15/2021 - CHRISTOPHER Waters* S20.362A Insect bite (nonvenomous) of left front wall of thorax, initial encounter* New Medication:* Cephalexin 500 mg - take 2 tabs by mouth twice a day for 10 days * S70.361A Insect bite (nonvenomous), right thigh, initial encounter * T63.441A Toxic effect of venom of bees, accidental (unintentional), initial encounter Functional Status Description No Information Available Mental Status Description No Information Available Referrals Description No Information Available
--- OUTSIDE RECORDS SUMMARY | 2021-06-03 21:54 | CCD | Continuity of Care Document ---
Author Author Jess OCONNOR Organization Unknown Address [address] [place] [address] Phone [phone] Care Team Providers Care Network Control Operator Name Role Phone Dejon Linares MD AUTM [phone] Problems Description No Information Available Social History [...] Available Procedures Date Code Description Status 03/15/2021 34578 Office/Outpatient New Low MDM 30 -44 Minutes [...]
--- OUTSIDE RECORDS SUMMARY | 2021-06-03 21:54 | CCD | Continuity of Care Document ---
Author Author Jess OCONNOR Organization Unknown Address [address] [place] [address] Phone [phone] Care Team Providers Care Nurse Ldr Name Role Phone Dejon Linares MD AUTM [phone] Problems Description No Information Available Social History Type Date Description Comments Sex Unknown ETOH Use Rarely consumes alcohol Tobacco Use Start: Unknown Patient has never smoked Allergies, Adverse Reactions, Alerts Description No Known Drug Allergies Medications Active Medications SIG Qnty Indications Ordering Provide r Date Cephalexin 500mg Tablets take 2 tabs by mouth twice a day for 10 days 40tabs S20.362A James Vadlovinos JR., M.D. 03/15/2021 History Medications No Active [...] Available Procedures Date Code Description Status 03/15/2021 07697 Office/Outpatient New Low MDM 30 -44 Minutes [...]
--- OUTSIDE RECORDS SUMMARY | 2021-06-03 21:54 | CCD ---
Continuity of Care Document (CCD) Created on: 03/15/2021 CarcamoJess barragan External Reference #: [id number] : 1970 Sex: Female Author Author Jess OCONNOR Organization Unknown Address [address] [place] [address] Phone [phone] Care Team Providers Care [employer] Dean Name Role Phone Dejon Linares MD AUTM [phone] Problems Description No Information Available Social History [...] Available Procedures Date Code Description Status 03/15/2021 28472 Office/Outpatient New Low MDM 30 -44 Minutes [...]
--- OUTSIDE RECORDS SUMMARY | 2021-06-03 21:54 | CCD ---
Continuity of Care Document (CCD) Created on: 03/15/2021 CarcamoJess barragan External Reference #: [id number] : 1970 Sex: Female Author Author Jess OCONNOR Organization Unknown Address [address] [place] [address] Phone [phone] Care Team Providers Care Sound Equipment Mechanic Name Role Phone Dejon Linares MD AUTM [phone] Problems Description No Information Available Social History [...] Available Procedures Date Code Description Status 03/15/2021 02557 Office/Outpatient New Low MDM 30 -44 Minutes [...]
[2021-06-03 22:45] LABS: BASO % 0.3 % (0.0-1.0); EOS # 0.1 10^3/uL (0.0-0.5); EOS % 0.6 % (0.0-3.0); HEMATOCRIT 45.3 % (36.0-47.0); LYMPH # 2.4 10^3/uL (1.5-5.0); LYMPH % 18.9 % (24.0-44.0); MEAN CORPUSCULAR HEMOGLOBIN 27.6 pg (27.0-33.0); MEAN CORPUSCULAR HGB CONC 30.9 g/dl (32.0-36.5); MEAN CORPUSCULAR VOLUME 89.2 fl (80.0-96.0); MONO % 8.1 % (2.0-8.0); NEUTROPHILS % 71.9 % (36.0-66.0); PLATELET COUNT, AUTOMATED 353 10^3/uL (150-450); RED BLOOD COUNT 5.08 10^6/uL (4.00-5.40); WHITE BLOOD COUNT 12.6 10^3/uL (4.0-10.0)
[2021-06-03 23:14] LABS: ALBUMIN 3.6 GM/DL (3.2-5.2); ALT/SGPT 29 U/L (12-78); BILIRUBIN,DIRECT < 0.1 MG/DL (0.0-0.2); BILIRUBIN,TOTAL 0.4 MG/DL (0.2-1.0); BLOOD UREA NITROGEN 9 MG/DL (7-18); CALCIUM LEVEL 9.4 MG/DL (8.5-10.1); CARBON DIOXIDE LEVEL 26 MEQ/L (21-32); CHLORIDE LEVEL 108 MEQ/L (98-107); CREATININE FOR GFR 0.81 MG/DL (0.55-1.30); GLOMERULAR FILTRATION RATE > 60.0 (>51); GLUCOSE, FASTING 93 MG/DL (70-100); LIPASE 78 U/L (73-393); POTASSIUM SERUM 4.5 MEQ/L (3.5-5.1); SODIUM LEVEL 140 MEQ/L (136-145); TOTAL PROTEIN 8.4 GM/DL (6.4-8.2)
--- OUTSIDE RECORDS SUMMARY | 2021-06-04 06:50 | CCD ---
Author Author [facility] Organization [facility] Address Unknown Phone Unavailable Care Team Providers Care Ceo Name Role Phone MEDENT_806, NA Unavailable Unavailable [...] Mahsa PADILLA PA Unavailable Unavailable LETTIERE, Mahsa WHITE Unavailable Unavailable [...] is protected by Article 27-F of the [facility] Public Health law. If you continue you may have access to information: Regarding HIV / AIDS; Provided by facilities licensed or operated by the [facility] Office of Mental Health; or Provided by the [facility] Office for People With Developmental Disabilities. If such information is present, then the following [facility] mandated warning applies: This information has been [...] law may result in a fine or detention sentence or both. A general authorization for the release of medical or other information is NOT sufficient authorization for further disc losure. Family History Family Member Name Family Member Gender Family Member Status Date o f Status Description Data Source(s) Unknown Unknown Problem MEDENT ([facility]) Unknown Female Problem MED[facility] ([facility]) Unknown Female Problem MEDENT ([facility]) Unknown Female Problem MEDENT ([facility]) Encounters Encounter Providers Location Date Indications Data Source(s ) Outpatient Attender: Christiane Pinzon MD 1 08/03/2020 07:25:28 PM EDT - 06/03/2021 09:26:32 PM EDT [facility] ([facility]) Outpatient Attender: RANDY canales 03/15/2021 01:00:00 PM EDT MED[facility] ([facility]) Outpatient [facility], [facility] [address] 12/28/2020 12:00:00 AM EDT eCW1 ([facility]) Outpatient Attender: ERIKA YING DO [facility] 08/16/2020 12:40:00 PM EST MEDENT ([facility]) Outpatient Attender: NA MEDENT_806 [facility] 04/22/2020 03:15:00 PM EDT MEDENT ([facility]) Immunizations Vaccine Date Status Description Data Source(s) COVID-19 VACCINE Pfizer 05/04/2021 12:00:00 AM EDT completed [facility] Vaccine Series Complete: YESThis Data wa s Submitted to [facility] [employer]. COVID-19 VACC, MRNA(PFIZER)/PF 05/04/2021 12:00:00 AM EDT completed [facility] COVID-19 VACCINE Pfizer 09/08/2020 12:00:00 AM EST completed [facility] Vaccine Series Complete: YESThis Data wa s Submitted to [facility] [employer]. COVID-19 VACCINE Pfizer 08/18/2020 12:00:00 AM EST completed [facility] Vaccine Series Complete: NOThis Data was Submitted to [facility] [employer]. New in 2011. IIV4 04/22/2020 03:26:00 PM EDT completed MEDENT ([facility]) Medications Medication Brand Name Start Date Product Form Dose Route Admi nistrative Instructions Pharmacy Instructions Status Indications Reaction Description Data Source(s) No Active Medications 03/15/2021 12:00:00 AM EDT completed [facility] ([facility]) Cephalexin 500 MG Oral Tablet Cephalexin 03/15/2021 12:00:00 AM EDT ORAL active MEDENT ([facility]) 500 mg 03/15/2021 12:00:00 AM EDT tablet 40 TAKE TWO TABLETS BY MOUTH TWICE A DAY FOR 10 DAYS TAKE TWO TABLETS BY MOUTH TWICE A DAY FOR 10 DAYS SOLD : 03/15/2021 [facility] Immunization Administration Single Or Combination 04/22/2020 12:00:00 AM EDT completed MEDENT ([facility]) Medication administered onsite Insurance Providers Payer name Policy type / Coverage type Policy ID Covered democrat ID Covered democrat's relationship to kennedy Policy [place] Plan Information [id number] [facility] 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 [id number] Self [id number] [facility] Part B [id number] Self [id number] [facility] [employer] [id number] Self [id number] [facility] Part B [id number] Self [id number] [employer] [id number] S elf [id number] [employer] [id number] [facility] [id number] SP [id number] [employer] [id number] S elf [id number] [employer] [id number] S elf [id number] [employer] [id number] SP [id number] [employer] [id number] SP [id number] [employer] [id number] S elf [id number] [employer] [id number] Self [employer] [id number] S elf [facility] Medig[employer] Part B [id number] Self [id number] [facility] O [id number] O [id number] Problems, Conditions, and Diagnoses No Information Surgeries/Procedures Procedure Description Date Indications Data Source(s) OFFICE OUTPATIENT NEW 30 MINUTES 03/15/2021 12:00:00 A M EDT MEDENT ([facility]) Results ID Date Data Source [facility] DIGITAL / RAMON BILATERAL MAMMO SCREENING (Ultraso und if indicated) 12/28/2020 12:00:00 AM EDT eCW1 ([facility]) Name Value Range Interpretation Code Description Data Stephanie rce(s) Supporting Document(s) [facility] DIGITAL / RAMON BILAT ERAL MAMMO SCREENING (Ultrasound if indicated) eCW1 ([facility]) ID Date Data Source [id number] 08/24/2020 07:14:00 AM EST MEDENT ([facility]) Name Value Range Interpretation Code Description Data Stephanie rce(s) Supporting Document(s) White Blood Count 5.7 10 4.0-10.0 Normal (applies to non-numeri c results) MEDENT ([facility]) Red Blood Count 4.73 10 4.00-5.40 Normal (applies to non-numeric results) [facility] ([facility]) Hemoglobin 12.9 g/dL 12.0-15.5 Normal (applies to non-numeric resul ts) MED[facility] ([facility]) Hematocrit 41.1 % 36.0-47.0 Normal (applies to non-numeric resul ts) MED[facility] ([facility]) Mean Corpuscular Volume 86.9 fl 80.0-96.0 Normal ( applies to non-numeric results) MED[facility] ([facility]) Mean Corpuscular Hemoglobin 27.3 pg 27.0-33.0 Norm al (applies to non-numeric results) MED[facility] ([facility]) Mean Corpuscular HGB Conc 31.4 g/dL 32.0-36.5 Below low normal MEDENT ([facility]) Red Cell Distribution Width 13.8 % 11.5-14.5 Norm al (applies to non-numeric results) MED[facility] ([facility]) Neutrophils % 52.5 % 36.0-66.0 Normal (applies to non-numeric re sults) MED[facility] ([facility]) Platelet Count, Automated 357 10 150-450 Normal (applies to non-numeric results) MED[facility] ([facility]) [place] % 9.2 % 0.0-5.0 Above high normal MEDENT ([facility]) Lymph % 34.5 % 24.0-44.0 Normal (applies to non-numeric resul ts) MED[facility] ([facility]) Immature Granulocyte % 0.2 % 0-3.0 Normal (applies to non-n umeric results) [facility] ([facility]) Eos % 2.5 % 0.0-3.0 Normal (applies to non-numeric resul ts) [facility] ([facility]) Baso % 1.1 % 0.0-1.0 Above high normal MED[facility] ([facility]) Nucleated Red Blood Cell % 0.0 % 0-0 Normal (applies to n on-numeric results) [facility] ([facility]) Neutrophils # 3.0 10 1.5-8.5 Normal (applies to non-numeric re sults) [facility] ([facility]) Eos # 0.1 10 0.0-0.5 Normal (applies to non-numeric resul ts) [facility] ([facility]) Lymph # 2.0 10 1.5-5.0 Normal (applies to non-numeric resul ts) [facility] ([facility]) [place] # 0.5 10 0.0-0.8 Normal (applies to non-numeric resul ts) [facility] ([facility]) Baso # 0.1 10 0.0-0.2 Normal (applies to non-numeric resul ts) MEDENT ([facility]) ID Date Data Source [id number] 08/24/2020 07:14:00 AM EST [facility] ([facility]) Name Value Range Interpretation Code Description Data Stephanie rce(s) Supporting Document(s) Triglycerides Level 42 mg/dL Normal (applies to non-nume gonzález results) MED[facility] ([facility]) Cholesterol Level 165 mg/dL Normal (applies to non-numeri c results) [facility] ([facility]) HDL Cholesterol 71 mg/dL Normal (applies to non-numeric results) [facility] ([facility]) LDL Cholesterol 86 mg/dL Normal (applies to non-numeric results) [facility] ([facility]) Cholesterol Risk Ratio 2.323 Normal (applies to non-n umeric results) [facility] ([facility]) Non-HDL-C 94 mg/dL Normal (applies to non-numeric resul ts) [facility] ([facility]) ID Date Data Source [id number] 08/24/2020 07:14:00 AM EST [facility] ([facility]) Name Value Range Interpretation Code Description Data Stephanie rce(s) Supporting Document(s) Thyroid Stimulating Hormone 1.830 uIU/ML 0.358-3.740 Norm al (applies to non- numeric results) [facility]) Free T4 1.11 ng/dL 0.76-1.46 Normal (applies to non-numeric resul ts) [facility] ([facility]) ID Date Data Source [id number] 08/24/2020 07:14:00 AM EST MEDENT ([facility]) Name Value Range Interpretation Code Description Data Stephanie rce(s) Supporting Document(s) Blood Urea Nitrogen 13 mg/dL 7-18 Normal (applies to non-nume gonzález results) [facility] ([facility]) Glucose, Fasting 81 mg/dL 70-100 Normal (applies to non-numeric results) [facility] ([facility]) Glomerular Filtration Rate Laboratory test result Normal (applies to non- numeric results) [facility] ([facility]) <content>Units are mL/min/1.73 m2</content>
<content></content>
<content>Chronic Kidney Disease Staging per NKF:</content>
<content></content>
<content>Stage I & II GFR >=60 Normal to Mildly Decreased</content>
<content>Stage III GFR 30-59 Moderately Decreased</content>
<content>Stage IV GFR 15-29 Severely Decreased</content>
<content>Stage V GFR <15 Very Little GFR Left</content>
<content>ESRD GFR <15 on TIRE BAGGER</content>
<content></content> Creatinine For GFR 0.76 mg/dL 0.55-1.30 Normal (applies to non -numeric results) [facility] ([facility]) Sodium Level 142 meq/L 136-145 Normal (applies to non-numeric res ults) [facility] ([facility]) Chloride Level 105 meq/L 98-107 Normal (applies to non-numeric r esults) [facility] ([facility]) Potassium Serum 4.1 meq/L 3.5-5.1 Normal (applies to non-numeric results) [facility] ([facility]) Anion Gap 9 meq/L 8-16 Normal (applies to non-numeric resul ts) [facility] ([facility]) Carbon Dioxide Level 28 meq/L 21-32 Normal (applies to non-num adali results) [facility] ([facility]) Calcium Level 9.5 mg/dL 8.5-10.1 Normal (applies to non-numeric re sults) [facility] ([facility]) Alkaline Phosphatase 102 U/L 45-117 Normal (applies to non-num adali results) [facility] ([facility]) Alt/SGPT 30 U/L 12-78 Normal (applies to non-numeric resul ts) [facility] ([facility]) Ast/Sgot 18 U/L 7-37 Normal (applies to non-numeric resul ts) [facility] ([facility]) Total Protein 7.6 GM/DL 6.4-8.2 Normal (applies to non-numeric re sults) [facility] ([facility]) Bilirubin,Total 0.4 mg/dL 0.2-1.0 Normal (applies to non-numeric results) [facility] ([facility]) Albumin/Globulin Ratio 0.9 1.2-2.2 Below low normal [facility] ([facility]) Albumin 3.7 GM/DL 3.2-5.2 Normal (applies to non-numeric resul ts) [facility] ([facility]) Procedure Social History Code Duration Value Status Description Data Source(s ) Smoking 12/28/2020 12:00:00 AM EDT Never Smoker completed Never S juanpablo eCW1 ([facility]) Smoking 08/16/2020 12:00:00 AM EST Never Smoked Cigarettes com pleted Never Smoked Cigarettes [facility] ([facility]) Vital Signs ID Date Data Source UNK Name Value Range Interpretation Code Description Data Source(s) Oxygen saturation in Arterial blood by Pulse oximetry 99 % 99 % [facility] ([facility]) Diastolic blood pressure 82 mm[Hg] 82 mm[Hg] [facility] ([facility]) Heart rate 98 /min 98 /min [facility] ([facility]) Respiratory rate 16 /min 16 /min MED[facility] ( [facility]) Systolic blood pressure 126 mm[Hg] 126 mm[Hg] M EDENT ([facility], [facility]) Body temperature 97.2 [degF] 97.2 [degF] MEDENT ([facility]) Body weight 225.00 [lb_av] 225.00 [lb_av] MEDEN T ([facility], [facility]) Body height 64 [in_i] 64 [in_i] MEDENT ([facility]) 5'4" Body mass index (BMI) [Ratio] 38.6 kg/m2 38.6 k g/m2 MEDENT ([facility]) Body weight 228 [lb_av] 228 [lb_av] eCW1 ([facility]) Body weight 103.42 kg 103.42 kg W1 ([facility]) Body height 63.5 [in_i] 63.5 [in_i] eCW1 ([facility]) Body mass index (BMI) [Ratio] 39.75 kg/m2 39.75 kg/m2 W1 ([facility]) Systolic blood pressure 136 mm[Hg] 136 mm[Hg] e CW1 ([facility]) Diastolic blood pressure 88 mm[Hg] 88 mm[Hg] eCW1 ([facility]) Systolic blood pressure 126 mm[Hg] 126 mm[Hg] M EDENT ([facility]) Diastolic blood pressure 78 mm[Hg] 78 mm[Hg] MEDENT ([facility]) Body height 63.3 [in_i] 63.3 [in_i] MEDENT ([facility]) 5'3.30" Body weight 219.00 [lb_av] 219.00 [lb_av] MEDEN T ([facility]) Body mass index (BMI) [Ratio] 38.4 kg/m2 38.4 k g/m2 MEDENT ([facility]) Heart rate 97 /min 97 /min MED[facility] ([facility]) Respiratory rate 19 /min 19 /min MED[facility] ( [facility]) Body temperature 97.2 [degF] 97.2 [degF] HUMBERTO ([facility]) Oxygen saturation in Arterial blood by Pulse oximetry 98 % 98 % HUM[facility] ([facility]) [place] body weight 115 [lb_av] 115 [lb_av] LEWIS Chambers ([facility])
[2021-06-04] MEDS ORDERED: ISOVUE-370 76% 100ML VIAL As Ordered ONE (06:56)
[2021-06-04] MEDS ORDERED: ACETAMINOPHEN 325 MG TAB PO ONE (07:50)
--- NOTE | 2021-06-04 09:04 | REPVR ---
PROCEDURE INFORMATION: Exam: CT Abdomen And Pelvis With Contrast Exam date and time: 06/04/2021 7:33 AM Age: 51 years old Clinical indication: Abdominal pain; Localized; Right lower quadrant (rlq); Additional info: Rlq pain TECHNIQUE: Imaging protocol: Computed tomography of the abdomen and pelvis with contrast. Radiation optimization: All CT scans at this facility use at least one of these dose optimization techniques: automated exposure control; mA and/or kV adjustment per patient size (includes targeted exams where dose is matched to clinical indication); or iterative reconstruction. Contrast material: ISOVUE 370; Contrast volume: 100 ml; Contrast route: INTRAVENOUS (IV); COMPARISON: CR SPINE LS W/BENDING 02/21/2019 9:28 AM FINDINGS: Liver: No mass. Gallbladder and bile ducts: No calcified stones. No ductal dilation. Pancreas: No ductal dilation. Spleen: No splenomegaly. Adrenal glands: No mass. Kidneys and ureters: No hydronephrosis. Stomach and bowel: Colonic diverticulosis without evidence of diverticulitis. Appendix: The appendix is enlarged measuring 1.4 cm with wall edema and periappendiceal inflammation. No evidence of perforation or drainable abscess. Intraperitoneal space: No free air. No significant fluid collection. Vasculature: No abdominal aortic aneurysm. Lymph nodes: No enlarged lymph nodes. Urinary bladder: Unremarkable as visualized. Reproductive: Unremarkable as visualized. Bones/joints: No acute fracture. Soft tissues: Unremarkable. IMPRESSION: Acute uncomplicated appendicitis. Electronically signed by: Dayday Martinez On 06/04/2021 09:04:15 AM
[2021-06-04] MEDS ORDERED: cefTRIAXone SOD 1 GM in D5W MINI-BAG PLUS 50 ML IV ONE (09:20)
[2021-06-04] MEDS ORDERED: HOME MED LIST COMPLETE! XX SCH (09:35)
[2021-06-04] MEDS ORDERED: AMPICILLIN SOD/SULBACTAM SOD 3 GM in D5W MINI-BAG PLUS 100 ML IV ONE (10:00)
[2021-06-04] MEDS ORDERED: propofoL 200 MG/20 ML VIAL As Ordered ONE (10:15)
[2021-06-04] MEDS ORDERED: MIDAZOLAM INJ 2MG/2ML VIAL (J2250 PER 1MG) As Ordered ONE (10:15)
[2021-06-04] MEDS ORDERED: ROCURONIUM BROMIDE 50 MG/5 ML VIAL As Ordered ONE (10:15)
[2021-06-04] MEDS ORDERED: LIDOCAINE 2% 100MG/5ML SDV (FOR ANES.) As Ordered ONE (10:15)
[2021-06-04] MEDS ORDERED: fentaNYL 100 MCG/2 ML INJECTION (J3010) As Ordered ONE (10:16)
--- OUTSIDE RECORDS SUMMARY | 2021-06-04 10:34 | CCD ---
Author Author [facility] Organization [facility] Address Unknown Phone Unavailable Care Team Providers Care Cryptographer Name Role Phone MEDENT_[id number], NA Unavailable Unavailable [...] LETTIERE, A RANDY PA Unavailable Unavailable LETTIERE, Mahsa PADILLA PA Unavailable Unavailable LETTIERE, Mahsa PADILAL PA Unavailable Unavailable LETTIERE, A RANDY PA [...] Unavailable KOKO-ROBIN, ERIKA DO Unavailable Unavailable KOKO-ROBIN, ERIAK DO Unavailable Unavailable KOKO-ROBIN, ERIKA DO Unavailable [...] Melinda Pinzon MD Unavailable Unavailable Melinda Pinzon Christiane MD Unavailable Unavailable Melinda Pinzon MD Unavailable Unavailable Pinzon, C Christiane MD Unavailable Unavailable Pinzon, C Christiane Unavailable Unavailable Pinzon, C Christiane MD Unavailable Unavailable Pinzon, C Christiane MD Unavailable Unavailable Pinzon, C Christiane MD Unavailable Unavailable Pinzon, C Christiane MD Unavailable Unavailable Melinda Pinzon MD Unavailable Unavailable Melinda Pinzon Christiane MD Unavailable Unavailable Melinda Pinzon MD Unavailable Unavailable Pinzon, C Christiane MD Unavailable Unavailable Pinzon, Melinda Christiane Unavailable Unavailable Jeromy, Melinda Christiane MD Unavailable Unavailable Melinda Pinzon Christiane Unavailable Unavailable Melinda Pinzon MD Unavailable Unavailable Melinda Pinzon Christiane MD Unavailable Unavailable Jeromy C Christiane MD Unavailable Unavailable Pinzon, C Christiane MD Unavailable Unavailable Pinzon, C Christiane MD Unavailable Unavailable Pinzon, C Christiane MD Unavailable Unavailable Re-disclosure Warning The records that [...] is protected by Article 27-F of the [facility] Public Health law. If you continue you may have access to information: Regarding HIV / AIDS; Provided by facilities licensed or operated by the [facility] Office of Mental Health; or Provided by the [facility] Office for People With Developmental Disabilities. If such information is present, then the following [facility] mandated warning applies: This information has been [...] law may result in a fine or longterm sentence or both. A general authorization for the release of medical or other information is NOT sufficient authorization for further disc losure. Family History Family Member Name Family Member Gender Family Member Status Date o f Status Description Data Source(s) Unknown Unknown Problem MEDENT ([facility]) Unknown Female Problem MEDENT ([facility]) Unknown Female Problem MEDENT ([facility]) Unknown Female Problem MEDENT ([facility]) Encounters Encounter Providers Location Date Indications Data Source(s ) Outpatient Attender: Christiane Pinzon MD 1 08/03/2020 07:25:28 PM EDT - 06/03/2021 09:26:32 PM EDT [facility] ([facility]) Outpatient Attender: RANDY canales 03/15/2021 01:00:00 PM EDT MEDENT ([facility]) Outpatient [address] [facility] [address] 12/28/2020 12:00:00 AM EDT eCW1 ([facility]) Outpatient Attender: ERIKA YING DO [facility] 08/16/2020 12:40:00 PM EST MEDENT ([facility]) Outpatient Attender: NA MEDENT_806 [facility] 04/22/2020 03:15:00 PM EDT MEDENT ([facility]) Immunizations Vaccine Date Status Description Data Source(s) COVID-19 VACCINE Pfizer 05/04/2021 12:00:00 AM EDT completed [facility] Vaccine Series Complete: YESThis Data wa s Submitted to [facility] Via [employer]. COVID-19 VACC, MRNA(PFIZER)/PF 05/04/2021 12:00:00 AM EDT completed [facility] COVID-19 VACCINE Pfizer 09/08/2020 12:00:00 AM EST completed [facility] Vaccine Series Complete: YESThis Data wa s Submitted to [facility] Via [employer]. COVID-19 VACCINE Pfizer 08/18/2020 12:00:00 AM EST completed [facility] Vaccine Series Complete: NOThis Data was Submitted to [facility] Via [employer]. New in 2011. IIV4 04/22/2020 03:26:00 PM EDT completed MEDENT ([facility]) Medications Medication Brand Name Start Date Product Form Dose Route Admi nistrative Instructions Pharmacy Instructions Status Indications Reaction Description Data Source(s) No Active Medications 03/15/2021 12:00:00 AM EDT completed MEDENT ([facility], [facility]) Cephalexin 500 MG Oral Tablet Cephalexin 03/15/2021 12:00:00 AM EDT ORAL active MEDENT ([facility]) 500 mg 03/15/2021 12:00:00 AM EDT tablet 40 TAKE TWO TABLETS BY MOUTH TWICE A DAY FOR 10 DAYS TAKE TWO TABLETS BY MOUTH TWICE A DAY FOR 10 DAYS SOLD : 03/15/2021 [facility] Immunization Administration Single Or Combination 04/22/2020 12:00:00 AM EDT completed MEDENT ([facility]) Medication administered onsite Insurance Providers Payer name Policy type / Coverage type Policy ID Covered alliance party ID Covered alliance party's relationship to kennedy Policy [place] Plan Information [id number] [facility] 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 [id number] Self [id number] [facility] Part B [id number] Self [id number] [facility] Commercial [id number] Self [id number] [facility] Part B [id number] Self [id number] [employer] [id number] S elf [id number] AN[employer] [id number] [facility] [id number] SP [id number] [employer] [id number] S elf [id number] [employer] Commercial [id number] S elf [id number] [employer] [id number] SP [id number] [employer] [id number] SP [id number] [employer] [id number] S elf [id number] [employer] [id number] Self [employer] [id number] S elf [facility] Medigap Part B [id number] Self [id number] [facility] O [id number] O [id number] Problems, Conditions, and Diagnoses No Information Surgeries/Procedures Procedure Description Date Indications Data Source(s) OFFICE OUTPATIENT NEW 30 MINUTES 03/15/2021 12:00:00 A M EDT [facility] ([facility]) Results ID Date Data Source [facility] DIGITAL / RAMON BILATERAL MAMMO SCREENING (Ultraso und if indicated) 12/28/2020 12:00:00 AM EDT eCW1 ([facility]) Name Value Range Interpretation Code Description Data Stephanie rce(s) Supporting Document(s) [facility] DIGITAL / RAMON BILAT ERAL MAMMO SCREENING (Ultrasound if indicated) eCW1 ([facility]) ID Date Data Source [id number] 08/24/2020 07:14:00 AM EST MEDENT ([facility]) Name Value Range Interpretation Code Description Data Stephanie rce(s) Supporting Document(s) White Blood Count 5.7 10 4.0-10.0 Normal (applies to non-numeri c results) MEDENT ([facility]) Red Blood Count 4.73 10 4.00-5.40 Normal (applies to non-numeric results) MED[facility] ([facility]) Hemoglobin 12.9 g/dL 12.0-15.5 Normal (applies to non-numeric resul ts) MED[facility] ([facility]) Hematocrit 41.1 % 36.0-47.0 Normal (applies to non-numeric resul ts) MED[facility] ([facility]) Mean Corpuscular Volume 86.9 fl 80.0-96.0 Normal ( applies to non-numeric results) MED[facility] ([facility]) Mean Corpuscular Hemoglobin 27.3 pg 27.0-33.0 Norm al (applies to non-numeric results) MED[facility] ([facility]) Mean Corpuscular HGB Conc 31.4 g/dL 32.0-36.5 Below low normal MED[facility] ([facility]) Red Cell Distribution Width 13.8 % 11.5-14.5 Norm al (applies to non-numeric results) MED[facility] ([facility]) Neutrophils % 52.5 % 36.0-66.0 Normal (applies to non-numeric re sults) MED[facility] ([facility]) Platelet Count, Automated 357 10 150-450 Normal (applies to non-numeric results) MEDENT ([facility]) [place] % 9.2 % 0.0-5.0 Above high normal MEDENT ([facility]) Lymph % 34.5 % 24.0-44.0 Normal (applies to non-numeric resul ts) MEDENT ([facility]) Immature Granulocyte % 0.2 % 0-3.0 Normal (applies to non-n umeric results) MED[facility] ([facility]) Eos % 2.5 % 0.0-3.0 Normal (applies to non-numeric resul ts) MED[facility] ([facility]) Baso % 1.1 % 0.0-1.0 Above high normal MED[facility] ([facility]) Nucleated Red Blood Cell % 0.0 % 0-0 Normal (applies to n on-numeric results) MED[facility] ([facility]) Neutrophils # 3.0 10 1.5-8.5 Normal (applies to non-numeric re sults) MED[facility] ([facility]) Eos # 0.1 10 0.0-0.5 Normal (applies to non-numeric resul ts) MED[facility] ([facility]) Lymph # 2.0 10 1.5-5.0 Normal (applies to non-numeric resul ts) MED[facility] ([facility]) [place] # 0.5 10 0.0-0.8 Normal (applies to non-numeric resul ts) MED[facility] ([facility]) Baso # 0.1 10 0.0-0.2 Normal (applies to non-numeric resul ts) MEDENT ([facility]) ID Date Data Source [id number] 08/24/2020 07:14:00 AM EST [facility] ([facility]) Name Value Range Interpretation Code Description Data Stephanie rce(s) Supporting Document(s) Triglycerides Level 42 mg/dL Normal (applies to non-nume gonzález results) MEDENT ([facility]) Cholesterol Level 165 mg/dL Normal (applies to non-numeri c results) MED[facility] ([facility]) HDL Cholesterol 71 mg/dL Normal (applies to non-numeric results) MED[facility] ([facility]) LDL Cholesterol 86 mg/dL Normal (applies to non-numeric results) MED[facility] ([facility]) Cholesterol Risk Ratio 2.323 Normal (applies to non-n umeric results) MEDENT ([facility]) Non-HDL-C 94 mg/dL Normal (applies to non-numeric resul ts) MEDENT ([facility]) ID Date Data Source [id number] 08/24/2020 07:14:00 AM EST [facility] ([facility]) Name Value Range Interpretation Code Description Data Stephanie rce(s) Supporting Document(s) Thyroid Stimulating Hormone 1.830 uIU/ML 0.358-3.740 Norm al (applies to non- numeric results) [facility] ([facility]) Free T4 1.11 ng/dL 0.76-1.46 Normal (applies to non-numeric resul ts) [facility] ([facility]) ID Date Data Source [id number] 08/24/2020 07:14:00 AM EST MEDENT ([facility]) Name Value Range Interpretation Code Description Data Stephanie rce(s) Supporting Document(s) Blood Urea Nitrogen 13 mg/dL 7-18 Normal (applies to non-nume gonzález results) [facility] ([facility]) Glucose, Fasting 81 mg/dL 70-100 Normal (applies to non-numeric results) [facility] ([facility]) Glomerular Filtration Rate Laboratory test result Normal (applies to non- numeric results) [facility] ([facility]) <content>Units are mL/min/1.73 m2</content>
<content></content>
<content>Chronic Kidney Disease Staging per NKF:</content>
<content></content>
<content>Stage I & II GFR >=60 Normal to Mildly Decreased</content>
<content>Stage III GFR 30-59 Moderately Decreased</content>
<content>Stage IV GFR 15-29 Severely Decreased</content>
<content>Stage V GFR <15 Very Little GFR Left</content>
<content>ESRD GFR <15 on DYER ASSISTANT</content>
<content></content> Creatinine For GFR 0.76 mg/dL 0.55-1.30 Normal (applies to non -numeric results) [facility] ([facility]) Sodium Level 142 meq/L 136-145 Normal (applies to non-numeric res ults) [facility] ([facility]) Chloride Level 105 meq/L 98-107 Normal (applies to non-numeric r esults) [facility] ([facility]) Potassium Serum 4.1 meq/L 3.5-5.1 Normal (applies to non-numeric results) [facility] ([facility]) Anion Gap 9 meq/L 8-16 Normal (applies to non-numeric resul ts) MED[facility] ([facility]) Carbon Dioxide Level 28 meq/L 21-32 Normal (applies to non-num adali results) [facility] ([facility]) Calcium Level 9.5 mg/dL 8.5-10.1 Normal (applies to non-numeric re sults) MED[facility] ([facility]) Alkaline Phosphatase 102 U/L 45-117 Normal (applies to non-num adali results) [facility] ([facility]) Alt/SGPT 30 U/L 12-78 Normal (applies to non-numeric resul ts) [facility] ([facility]) Ast/Sgot 18 U/L 7-37 Normal (applies to non-numeric resul ts) [facility] ([facility]) Total Protein 7.6 GM/DL 6.4-8.2 Normal (applies to non-numeric re sults) [facility] ([facility]) Bilirubin,Total 0.4 mg/dL 0.2-1.0 Normal (applies to non-numeric results) [facility] ([facility]) Albumin/Globulin Ratio 0.9 1.2-2.2 Below low normal [facility] ([facility]) Albumin 3.7 GM/DL 3.2-5.2 Normal (applies to non-numeric resul ts) MEDENT ([facility]) Procedure Social History Code Duration Value Status Description Data Source(s ) Smoking 12/28/2020 12:00:00 AM EDT Never Smoker completed Never S juanpablo eCW1 ([facility]) Smoking 08/16/2020 12:00:00 AM EST Never Smoked Cigarettes com pleted Never Smoked Cigarettes [facility] ([facility]) Vital Signs ID Date Data Source UNK Name Value Range Interpretation Code Description Data Source(s) Systolic blood pressure 126 mm[Hg] 126 mm[Hg] M EDENT ([facility], [facility]) Diastolic blood pressure 82 mm[Hg] 82 mm[Hg] [facility] ([facility], [facility]) Heart rate 98 /min 98 /min [facility] ([facility], [facility]) Respiratory rate 16 /min 16 /min MEDENT ( [facility], [facility]) Oxygen saturation in Arterial blood by Pulse oximetry 99 % 99 % MEDENT ([facility], [facility]) Body temperature 97.2 [degF] 97.2 [degF] MEDENT ([facility]) Body weight 225.00 [lb_av] 225.00 [lb_av] MEDEN T ([facility]) Body height 64 [in_i] 64 [in_i] MEDENT ([facility]) 5'4" Body mass index (BMI) [Ratio] 38.6 kg/m2 38.6 k g/m2 MEDENT ([facility]) Body weight 228 [lb_av] 228 [lb_av] W1 ([facility]) Body weight 103.42 kg 103.42 kg W1 ([facility]) Body height 63.5 [in_i] 63.5 [in_i] W1 ([facility]) Body mass index (BMI) [Ratio] 39.75 kg/m2 39.75 kg/m2 eCW1 ([facility]) Systolic blood pressure 136 mm[Hg] 136 mm[Hg] e CW1 ([facility]) Diastolic blood pressure 88 mm[Hg] 88 mm[Hg] eCW1 ([facility]) Systolic blood pressure 126 mm[Hg] 126 mm[Hg] M EDENT ([facility]) Diastolic blood pressure 78 mm[Hg] 78 mm[Hg] MEDENT ([facility]) Body height 63.3 [in_i] 63.3 [in_i] MEDENT ([facility]) 5'3.30" Body weight 219.00 [lb_av] 219.00 [lb_av] MEDEN T ([facility]) Body mass index (BMI) [Ratio] 38.4 kg/m2 38.4 k g/m2 MEDENT ([facility]) Heart rate 97 /min 97 /min MEDENT ([facility]) Respiratory rate 19 /min 19 /min [facility] ( [facility]) Body temperature 97.2 [degF] 97.2 [degF] HUMBERTO ([facility]) Oxygen saturation in Arterial blood by Pulse oximetry 98 % 98 % HUM[place]ERTO ([facility]) [place] body weight 115 [lb_av] 115 [lb_av] LEWIS Chambers ([facility])
[2021-06-04] MEDS ORDERED: BUPIVACAINE HCL 0.25% 30ML VIAL As Ordered ONE (10:39)
[2021-06-04] MEDS ORDERED: LIDOCAINE 1% SDV 30ML VIAL As Ordered ONE (10:39)
[2021-06-04] MEDS ORDERED: dexameTHASONE 4 MG/ML 1ML VIAL (J1100 PER 1MG) As Ordered ONE (10:47)
[2021-06-04] MEDS ORDERED: SUGAMMADEX SODIUM 500 MG/5 ML VIAL (BRIDION) As Ordered ONE (10:58)
[2021-06-04] MEDS ORDERED: KETOROLAC 60MG 2ML VIAL As Ordered ONE (10:59)
[2021-06-04] MEDS ORDERED: ONDANSETRON 4MG/2ML VIAL As Ordered ONE (10:59)
[2021-06-04] MEDS ORDERED: METOCLOPRAMIDE INJ 10MG/2ML VIAL (J2765 PER 1) As Ordered ONE (11:00)
[2021-06-04] MEDS ORDERED: AMOX500T2 PO (11:27)
[2021-06-04] MEDS ORDERED: OXYC1TAB23 PO (11:28)
[2021-06-04] MEDS ORDERED: fentaNYL 100 MCG/2 ML INJECTION (J3010) IV PRN (11:40)
[2021-06-04] MEDS ORDERED: LR 1,000 ML IV SCH (11:40)
[2021-06-04] MEDS ORDERED: ONDANSETRON 4MG/2ML VIAL IV PRN ×2 (11:40)
[2021-06-04] MEDS ORDERED: oxyCODONE 5MG TAB PO PRN (11:40)
[2021-06-04] MEDS ORDERED: PERCOCET 5MG/325MG TAB PO PRN ×2 (11:40)
--- NOTE | 2021-06-04 12:13 | ROOPDOC ---
[facility] Report Of Operation Report of Operation DATE OF PROCEDURE: 06/04/21 PREPROCEDURE DIAGNOSES: acute appendicitis. POSTPROCEDURE DIAGNOSES: acute appendicitis. PROCEDURE PERFORMED: Laparoscopic appendectomy. SURGEON: Dannie Cobb MD ANESTHESIA: General endotracheal anesthesia. ESTIMATED BLOOD LOSS: Approximately 10 mL. COMPLICATIONS: None. REMARKS: Overall healthy 51-year-old female presenting with about a 2-day history of right-sided abdominal pain, was in the ER last night with positive work-up for early acute appendicitis, leukocytosis of 12,000, localized tenderness over the right lower quadrant area. FINDINGS: Thickened, inflamed appendix throughout its course, soft and supple base. Thickened and shortened appendiceal artery, exudative deposits in the wall of the appendix. Minimal serous fluid in the gutter. No free perforation. No localized abscess. SPECIMENS REMOVED: Appendix DESCRIPTION OF PROCEDURE: . Patient has been given a dose of Unasyn 3 g IV perioperatively.Patient was brought to the operating room, placed supine on the table. Sequential compressio n device placed for DVT prophylaxis. General endotracheal anesthesia started. The abdomen prepped and draped in usual sterile fashion. We paused for a surgical timeout using both pre-incision safety checklist to verify correct patient, procedure site and additional clinical information prior to beginning the procedure Entry into the abdomen done through an incision at the left upper quadrant. Veress needle inserted on a controlled fashion. Intra-abdominal placement confirmed with saline drop technique. CO2 insufflation started to a pressure of 15 mmHg. Using the same incision a 5 mm port was placed under direct vision of laparoscope. Insertion site was inspected for injury and none was found. She was placed on a Trendelenburg position the right side tilted to allow for better visualization of the appendix. An 8 mm port was placed over the supraumbilical area and a 5 mm port at the suprapubic area under direct vision. Operative findings: The appendix is located in slight retrocecal course but free floating. It is covered with exudates. No gross full-thickness necrosis or perforation. Small amount of serous fluid is noted around it. The mesoappendix is moderately thickened and shortened. The appendix is inflamed throughout its course. The appendix was grasped to pull the base of the appendix into view. The mesoappendix was divided using Harmonic scalpel down to the base. The base looks to be supple and soft after freeing its attachments to surrounding tissues. Two PDS Endoloops were placed to ligate the appendix at its base then divided with a Harmonic Scalpel the stump cauterized. Stump appears healthy. Appendix was then delivered into an Endo Catch bag through the 8 mm umbilical port site. . After re-insufflation the surgical site was inspected for hemostasis. Surrounding areas of the abdomen and inspected for fluid collections or signs of injury. The abdomen was deflated. The umbilical fascial defect was closed with a Crescencio-[place] device using the 0 Vicryl in a mattress fashion. The abdomen was then deflated. All ports removed. All skin incisions closed with 4-0 Monocryl in a subcuticular fashion. Steri-Strips and gauze dressing used for wound coverage. Patient was promptly awake and extubated and brought to recovery room stable. All counts of sponges and instruments verified to be correct. DANNIE COBB MD Jun 04, 2021 12:13
[2021-06-04 12:15] VITALS: BP 141/78
[2021-06-04 12:45] VITALS: BP 139/77
[2021-06-04] MEDS ORDERED: KETOROLAC 30 MG/ML 1ML VIAL IV PRN (13:40)
[2021-06-04 14:00] VITALS: BP 137/75
[2021-06-04 15:00] VITALS: BP 122/64
--- OUTSIDE RECORDS SUMMARY | 2021-06-17 11:30 | CCD | Continuity of Care Document ---
Author Author Jess GARCIA PA Organization Unknown Address [address], [address] [place] [address] Phone [phone] Care Team Providers Care Computing Services Director Name Role Phone Linda Cuello D.O. AUTM Harpreet Ennis D.O. AUTM [phone] Problems Description No Information Available Social History Type Date Description Comments Sex Unknown ETOH Use Occasionally consumes alcohol Tobacco Use Start: Unknown Denies Smoking Recreational Drug Use Denies Drug Use Allergies and adverse reactions Description No Known Drug Allergies Medications Description No Active Medications Immunizations Description No Information Available Vital Signs Date Vital Result Comment 06/13/2021 1:34pm BP Systolic 135 mmHg BP Diastolic 68 mmHg Body Temperature 98.5 F Height 64 inches 5'4" Weight 225.38 lb BMI (Body Mass Index) 38.7 kg/m2 [place] Body Weight 120 lb Weight 102.230 kg BSA (Body Surface Area) 2.06 m2 Results Test Acquired Date Facility Test Result H/L Range Note Laboratory test finding 06/04/2021 [facility] [address], [place] [id number] [phone] Pathology Request For Service (SEE NOTE) 1 Reflex Urine Culture 06/04/2021 [facility] enter Main Lab [address] [place] [address] [phone] Reflex Urine Culture FULL REPORT IN L <SEE NOTE> Norm al 2 1 FINAL DIAGNOSIS Appendix, appendectomy: Acute suppurative appendicitis with serositis. 06/07/2021 - 1329 CLINICAL DIAGNOSIS Acute appendicitis 06/06/2021 - 1351 GROSS DIAGNOSIS Received in formalin labeled "appendix" is an approximately 5.5 x 3 x 1.5 cm. portion of appendix, including t he mesoappendiceal fat. The serosal lining is dull and covered by purulent exudate. Sectioning reveals a firm fecalith in distal portion of the appendix. Systems Checkout Mechanic in one. - 06/06/2021 - 1351 Signed Amando Estrada MD 06/07/2021 1344 2 FULL REPORT IN LAB NOTES (eC W and [facility]). SPECIMEN APPEARS CONTAMINATED Procedures Description No Information Available Medical Devices Description No Information Available Encounters Description No Information Available Assessments Date Code Description Provider 06/13/2021 K35.80 Unspecified acute appendicitis T CHRISTOPHER White Plan of Treatment Future Appointment(s):* 06/20/2021 1:45 pm - CHRISTOPHER Rutherford at [facility] 06/13/2021 - CHRISTOPHER Rutherford* K35.80 Unspecified acute appendicitis Functional Status Description No Information Available Mental Status Description No Information Available Referrals Description No Information Available
--- OUTSIDE RECORDS SUMMARY | 2021-06-17 11:30 | CCD | Continuity of Care Document ---
Author Author Jess ANAYA Organization Unknown Address [address] [place] [address] Phone [phone] Care Team Providers Care Building Insulation Installer Name Role Phone Lnida Cuello D.O. AUTM Molina Diaz MD AUTM [phone] Problems Active Problems Provider Date FH: Musculoskeletal disease CHRISTOPHER Arreola Onset: 06/13 History of chronic urinary tract infection CHRISTOPHER Arreola Onset: 06/13/2021 Elevated blood-pressure reading without diagnosis of h ypertension Linda Riley D.O. Onset: 06/08/2016 Active or passive immunization Linda Cuello D.O. On set: 06/08/2016 Suspected sickle cell disease Linda Cuello D.O. Ons et: 06/08/2016 Suspected hypothyroidism Linda Cuello D.O. Onset: 08/08/2015 Hyperlipidemia screening Linda Cuello D.O. Onset: 08/08/2015 Adult health examination Linda Cuello D.O. Onset: 1 Social History Type Date Description Comments Sex Unknown Tobacco Use Start: Unknown Never Smoked Cigarettes Smoking Status Reviewed: 08/16/20 Never Smoked Cigarettes ETOH Use Rarely consumes alcohol Tobacco Use Start: Unknown Patient has never smoked Recreational Drug Use Denies Drug Use Exercise Type/Frequency Walks sporadically Sun Exposure Uses sunscreen Seat Belt/Car Seat Always uses seat belt Allergies and adverse reactions Description No Known Drug Allergies Medications Description No Active Medications Medications Administered in Office Medication SIG Qnty Indications Ordering Provider Date Immunization Administration Single Or Co mbination Injection Nurse 04/22/2020 Immunization Administration Single Or Co mbination Injection Nurse 06/07/2017 Immunization Adminstration 2+ Single Or Combination Injection Carmine HaroOYareli 06/08/2016 Immunization Administration Single Or Co mbination Injection Ildefonso Mcneil 06/08/2016 Immunizations CPT Code Status Date Vaccine Lot # [id number] Given 04/22/2020 Influenza Virus Vaccine, Quadrivalent, Split, Preservative Free [id number] Given 06/07/2017 Influenza Vaccin e Quadrivalent Preser/Antibiotic Free Im Use [id number] Given 06/08/2016 Tetanus, Diphthe jennyfer Toxoids/Acellular Pertussis Vaccine 7 Or > [id number] Vital Signs Date Vital Result Comment 06/13/2021 8:25am BP Systolic 128 mmHg BP Diastolic 84 mmHg Height 63.3 inches 5'3.30" Weight 222.38 lb BMI (Body Mass Index) 39.0 kg/m2 Heart Rate 107 /min Respiratory Rate 18 /min Body Temperature 97.8 F O2 % BldC Oximetry 99 % [place] Body Weight 115 lb 08/16/2020 1:39pm BP Systolic 126 mmHg BP Diastolic 78 mmHg Height 63.3 inches 5'3.30" Weight 219.00 lb BMI (Body Mass Index) 38.4 kg/m2 Heart Rate 97 /min Respiratory Rate 19 /min Body Temperature 97.2 F O2 % BldC Oximetry 98 % [place] Body Weight 115 lb Results Test Acquired Date Facility Test Result H/L Range Note Inhouse Ua 06/13/2021 Inhouse Inhouse Leukocytes neg Inhouse Nitrite neg Inhouse Urobilinogen neg Inhouse Protein neg Inhouse PH 6 Inhouse Hemoglobin neg Inhouse Specific Stella 1.010 Inhouse Ketones neg Inhouse Bilirubin neg Inhouse Glucose neg Laboratory test finding 06/04/2021 [facility] Outpatient T esting (Registration) [address] [place] [address] [phone] Sars Covid-19 Amplification NEGATIVE Normal Nega tive 1 Ua W/ Reflex To Culture 06/04/2021 [facility] Outpatient T esting (Registration) [address] [place] [address] [phone] Appearance, Urine RFX CLOUDY High Clear Color, Urine RFX YELLOW Normal Yellow PH,Urine RFX 5.0 units Normal 5.0-9.0 Specific [place] Ur Auto RFX 1.018 Normal 1.002-1.035 Protein, Urine Auto RFX 1+ mg/dL High Negative Glucose, Urine (Ua) Auto RFX NEGATIVE mg/dL Normal Negative Ketone, Urine Auto RFX TRACE mg/dL High Negative Urobilinogen, Urine Auto RFX 0.2 mg/dL Normal 0.0-2.0 Bilirubin, Urine Auto RFX NEGATIVE Normal Negative Nitrite, Urine Auto RFX NEGATIVE Normal Negative Leukocyte Esterase Ur Auto RFX 3+ High Negative Blood, Urine Blood RFX 2+ High Negative WBC, Urine Auto RFX 50 /HPF High 0-3 RBC, Urine Auto RFX 11 /HPF High 0-3 Bacteria, Urine Auto RFX 1+ High Negative Squam Epithelial Cell Ur Aurfx 6 /HPF Normal 0-6 Mucus, Urine RFX MODERATE Normal Negative Hyaline Cast, Urine Auto RFX 0 /LPF Normal 0-1 Reflex Urine Culture 06/04/2021 [facility] Outpatient Test ing (Registration) [address] [place] [address] [phone] Reflex Urine Culture FULL REPORT IN L <SEE NOTE> Norm al 2 Laboratory test finding 06/04/2021 [facility] Outpatient T carol (Registration) [address] [place] [address] [phone] Lactic Acid Sepsis Protocol 0.8 mmol/L Normal 0.4- 2.0 3 CBC With Differential 06/03/2021 [facility] Outpatient Mel worthy (Registration) [address] [place] [address] [phone] White Blood Count 12.6 10 High 4.0-10.0 Red Blood Count 5.08 10 Normal 4.00-5.40 Hemoglobin 14.0 g/dL Normal 12.0-15.5 Hematocrit 45.3 % Normal 36.0-47.0 Mean Corpuscular Volume 89.2 fl Normal 80.0-96.0 Mean Corpuscular Hemoglobin 27.6 pg Normal 27.0-33.0 Mean Corpuscular HGB Conc 30.9 g/dL Low 32.0-36.5 Red Cell Distribution Width 13.6 % Normal 11.5-14.5 Platelet Count, Automated 353 10 Normal 150-450 Neutrophils % 71.9 % High 36.0-66.0 Lymph % 18.9 % Low 24.0-44.0 [place] % 8.1 % High 2.0-8.0 Eos % 0.6 % Normal 0.0-3.0 Baso % 0.3 % Normal 0.0-1.0 Immature Granulocyte % 0.2 % Normal 0-3.0 Nucleated Red Blood Cell % 0.0 % Normal 0-0 Neutrophils # 9.0 10 High 1.5-8.5 Lymph # 2.4 10 Normal 1.5-5.0 [place] # 1.0 10 High 0.0-0.8 Eos # 0.1 10 Normal 0.0-0.5 Baso # 0.0 10 Normal 0.0-0.2 Liver Profile 06/03/2021 [facility] Outpatient Testi ng (Registration) [address] [place] [address] [phone] Ast/Sgot 30 U/L Normal 7-37 Alt/SGPT 29 U/L Normal 12-78 Alkaline Phosphatase 112 U/L Normal 45-117 Bilirubin,Total 0.4 mg/dL Normal 0.2-1.0 Bilirubin,Direct < 0.1 mg/dL Normal 0.0-0.2 Total Protein 8.4 GM/DL High 6.4-8.2 Albumin 3.6 GM/DL Normal 3.2-5.2 Albumin/Globulin Ratio 0.8 Low 1.2-2.2 Basic Metabolic Profile 06/03/2021 [facility] Outpatient T esting (Registration) [address] [place] [address] [phone] Glucose, Fasting 93 mg/dL Normal 70-100 Blood Urea Nitrogen 9 mg/dL Normal 7-18 Creatinine For GFR 0.81 mg/dL Normal 0.55-1.30 Glomerular Filtration Rate > 60.0 Normal >51 4 Sodium Level 140 mEq/L Normal 136-145 Potassium Serum 4.5 mEq/L Normal 3.5-5.1 5 Chloride Level 108 mEq/L High 98-107 Carbon Dioxide Level 26 mEq/L Normal 21-32 Anion Gap 6 mEq/L Low 8-16 Calcium Level 9.4 mg/dL Normal 8.5-10.1 Laboratory test finding 06/03/2021 [facility] Outpatient T esting (Registration) [address] [place] [address] [phone] Lipase 78 U/L Normal 73-393 1 A false negative result may occur if a specimen is improperly collected, transported or handled. False negative results may also occur if inadequate numbers of organisms are present in the specimen. As with any molecular test, mutations within the target regions of X[employer] SARS-CoV-2 could affect primer and/or probe binding resulting in failure to detect the presence of virus. This test cannot rule out diseases caused by other bacterial or viral pathogens. DISCLAIMER: Testing was performed using the [employer] SARS-CoV-2 test. This test was developed and its performance characteristics determined by [employer]. This test has not been FDA cleared or approved. This test has been authorized by FDA under an Emergency Use Authorization (EUA). This test is only authorized for the duration of time the declaration that circumstances exist justifying the authorization of the emergency use of in vitro diagnostic tests for detection of SARS-CoV-2 virus and/or diagnosis of COVID-19 infection under section 564(b)(1) of the Act, 21 U.S.C. 360bbb-3(b)(1), unless the authorization is terminated or revoked sooner. 2 FULL REPORT IN LAB NOTES (eC W and [facility]). SPECIMEN APPEARS CONTAMINATED 3 Y/N query for Sepsis Lactate Rule: Y 4 Units are mL/min/1.73 m2 Chronic Kidney Disease Staging per NKF: Stage I & II GFR >=60 Normal to Mildly Decreased Stage III GFR 30-59 Moderately Decreased Stage IV GFR 15-29 Severely Decreased Stage V GFR <15 Very Little GFR Left ESRD GFR <15 on CIRCUS PERFORMER 5 Testing was performed on a S LIGHTLY hemolyzed specimen. Suggest recollection of specimen for more accurate test results. Procedures Date Code Description Status 06/13/2021 [address] Office/Outpatient Established Mo d MDM 30-39 Min Completed Medical Devices Description No Information Available Encounters Type Date Location Provider Dx Diagnosis Office Visit 06/13/2021 8:30a Family Medicine [facility] CHRISTOPHER Jimenez Z87.440 Personal history of urinary (tract) infections K37 Unspecified appendicitis R73.01 Impaired fasting glucose Z82.69 Family history of diseases o f the ms sys and connective tiss Z13.220 Encounter for screening for lipoid disorders Z12.11 Encounter for screening for malignant neoplasm of colon Assessments Date Code Description Provider 06/13/2021 Z87.440 Personal history of urinary (tra ct) infections CHRISTOPHER Arreola 06/13/2021 K37 Unspecified appendicitis CHRISTOPHER Arreola 06/13/2021 R73.01 Impaired fasting glucose CHRISTOPHER Arreola 06/13/2021 Z82.69 Family history of ot her diseases of the musculoskeletal system and connective tissue CHRISTOPHER Arreola 06/13/2021 Z13.220 Encounter for screening for lipo id disorders CHRISTOPHER Arreola 06/13/2021 Z12.11 Encounter for screening for malissa gnant neoplasm of colon CHRISTOPHER Arreola Plan of Treatment Future Appointment(s):* 08/17/2021 3:40 pm - Linda Cuello D.O. at [facility] Functional Status Description No Information Available Mental Status Description No Information Available Referrals Refer to Reason for Referral Status Appt Date Molina Diaz MD Recently had an APPY with Dr Yareli Abebe. She is in need of a routine colonoscopy Sent [address] [place] [address] [phone]
--- OUTSIDE RECORDS SUMMARY | 2021-06-17 11:30 | CCD | Continuity of Care Document ---
Author Author Jess GALLEOG DO Organization Unknown Address [address] [place] [address] Phone [phone] Care Team Providers Care Seed Service Advisor Name Role Phone Linda Cuello D.O. AUTM Problems Active Problems Provider Date Elevated blood-pressure reading without diagnosis of h ypertension Linda Riley D.O. Onset: 06/08/2016 Active or passive immunization Linda Cuello D.O. On set: 06/08/2016 Suspected sickle cell disease Linda Cuello D.O. Ons et: 06/08/2016 Suspected hypothyroidism Linda Cuello D.O. Onset: 1 08/08/2015 Hyperlipidemia screening Linda Cuello D.O. Onset: [...] reactions Description No Known Drug Allergies Medications Active Medications SIG Qnty Indications Ordering Provide r Date Albuterol Sulfate HFA 108(90Base) mcg/Act Aerosol 1-2 puffs every 4-6 hours as needed for shortness of breath 8.500gm J20.9 Linda Cuello D.O. 06/23/2019 Novofine 32G X 6 mm Misc to be used with saxenda pen once a day 100units E66.9 Carmine McneilO Yareli 02/21/2019 Vitamin D 25mcg (1000 Ut) Tablets 4 tabs by mouth every day Unknown Medications Administered in Office Medication SIG Qnty Indications Ordering Provider Date Immunization Administration Single Or Co mbination Injection Nurse 04/22/2020 Immunization Administration Single Or Co mbination Injection Nurse 06/07/2017 Immunization Adminstration 2+ Single Or Combination Injection Linda Doe D.O. 06/08/2016 Immunization Administration Single Or Co mbination Injection Ildefonso McneilOYareil 06/08/2016 Immunizations CPT Code Status Date Vaccine Lot # [id number] Given 04/22/2020 Influenza Virus Vaccine, Quadrivalent, Split, Preservative Free [id number] Given 06/07/2017 Influenza Vaccin e Quadrivalent Preser/Antibiotic Free Im Use [id number] Given 06/08/2016 Tetanus, Diphthe jennyfer Toxoids/Acellular Pertussis Vaccine 7 Or > [id number] Vital Signs Date Vital Result Comment 08/16/2020 1:39pm BP Systolic 126 mmHg BP Diastolic 78 mmHg Height 63.3 inches 5'3.30" Weight 219.00 lb BMI (Body Mass Index) 38.4 kg/m2 Heart Rate 97 /min Respiratory Rate 19 /min Body Temperature 97.2 F O2 % BldC Oximetry 98 % [place] Body Weight 115 lb 01/26/2020 8:03am BP Systolic 128 mmHg BP Diastolic 74 mmHg Height 63.3 inches 5'3.30" Weight 204.00 lb BMI (Body Mass Index) 35.8 kg/m2 Heart Rate 105 /min Respiratory Rate 18 /min Body Temperature 97.4 F O2 % BldC Oximetry 97 % [place] Body Weight 115 lb Results Test Acquired Date Facility Test Result H/L Range Note Laboratory test finding 06/04/2021 [facility] Outpatient T esting (Registration) [address] [place] [address] [phone] Sars Covid-19 Amplification NEGATIVE Normal Nega tive 1 Ua W/ Reflex To Culture 06/04/2021 [facility] Outpatient T esting (Registration) [address] [place] [address] [phone] Appearance, Urine RFX CLOUDY High Clear Color, Urine RFX YELLOW Normal Yellow PH,Urine RFX 5.0 units Normal 5.0-9.0 Specific [place] Ur Auto RFX 1.018 Normal 1.002-1.035 Protein, [...] /LPF Normal 0-1 Reflex Urine Culture 06/04/2021 [facility] Outpatient Test ing (Registration) [address] [place] [address] [phone] Reflex Urine Culture FULL REPORT IN L <SEE NOTE> Norm al 2 Laboratory test finding 06/04/2021 [facility] Outpatient Trish medina (Registration) [address] [place] [address] [phone] Lactic Acid Sepsis Protocol 0.8 mmol/L Normal 0.4- 2.0 3 CBC With Differential 06/03/2021 [facility] Outpatient Mel worthy (Registration) [address] [place] [address] [phone] White Blood Count 12.6 10 High 4.0-10.0 [...] 36.0-66.0 Lymph % 18.9 % Low 24.0-44.0 [place] % 8.1 % High 2.0-8.0 Eos % 0.6 % Normal 0.0-3.0 Baso % 0.3 % Normal 0.0-1.0 Immature Granulocyte % 0.2 % Normal 0-3.0 Nucleated Red Blood Cell % 0.0 % Normal 0-0 Neutrophils # 9.0 10 High 1.5-8.5 Lymph # 2.4 10 Normal 1.5-5.0 [place] # 1.0 10 High 0.0-0.8 Eos # 0.1 10 Normal 0.0-0.5 Baso # 0.0 10 Normal 0.0-0.2 Liver Profile 06/03/2021 [facility] Outpatient Testi ng (Registration) [address] [place] [address] [phone] Ast/Sgot 30 U/L Normal 7-37 Alt/SGPT 29 U/L Normal 12-78 Alkaline Phosphatase 112 U/L Normal 45-117 Bilirubin,Total 0.4 mg/dL Normal 0.2-1.0 Bilirubin,Direct < 0.1 mg/dL Normal 0.0-0.2 Total Protein 8.4 GM/DL High 6.4-8.2 Albumin 3.6 GM/DL Normal 3.2-5.2 Albumin/Globulin Ratio 0.8 Low 1.2-2.2 Basic Metabolic Profile 06/03/2021 [facility] Outpatient T esting (Registration) [address] [place] [address] [phone] Glucose, Fasting 93 mg/dL Normal 70-100 Blood [...] mg/dL Normal 8.5-10.1 Laboratory test finding 06/03/2021 [facility] Outpatient T carol (Registration) [address] [place] [address] [phone] Lipase 78 U/L Normal 73-393 1 A [...] pathogens. DISCLAIMER: Testing was performed using the [employer] SARS-CoV-2 test. This test was developed and its performance characteristics determined by [employer]. This test has not been FDA cleared [...] Little GFR Left ESRD GFR <15 on SALES TEAM LEADER 5 Testing was performed on a S LIGHTLY hemolyzed specimen. Suggest recollection of specimen for more accurate test results. Procedures Description No Information Available Medical Devices Description No Information Available Encounters Description No Information Available Assessments Description No Information Available Plan of Treatment Future Appointment(s):* 06/13/2021 8:30 am - CHRISTOPHER Arreola at [facility] * 08/17/2021 3:40 pm - Linda Cuello D.O. at [facility] Functional Status Description No Information Available Mental Status Description No Information Available Referrals Description No Information Available
--- OUTSIDE RECORDS SUMMARY | 2021-06-17 11:30 | CCD | Continuity of Care Document ---
Author Author Jess GARCIA PA Organization Unknown Address [address] [facility], [address] [place] [address] Phone [phone] Care Team Providers Care Grab Operator Name Role Phone Linda Cuello D.O. AUTM Harpreet Ennis D.O. AUTM [phone] Problems Description No Information Available Social History [...] lb BMI (Body Mass Index) 38.7 kg/m2 [place] Body Weight 120 lb Weight 102.230 kg BSA (Body Surface Area) 2.06 m2 Results Test Acquired Date Facility Test Result H/L Range Note Laboratory test finding 06/04/2021 [facility] Main Lab [address] [place], [place] [phone] Pathology Request For Service (SEE NOTE) 1 Reflex Urine Culture 06/04/2021 [facility] enter Main Lab [address] [place] [address] [phone] Reflex Urine Culture FULL REPORT IN L [...] fecalith in distal portion of the appendix. Sulfonation Equipment Operator in one. - 06/06/2021 - 1351 Signed [...] 06/20/2021 1:45 pm - CHRISTOPHER Rutherford at [facility] 06/13/2021 - CHRISTOPHER Rutherford* K35.80 Unspecified acute appendicitis Functional Status Description No Information Available Mental Status Description No Information Available Referrals Description No Information Available
--- OUTSIDE RECORDS SUMMARY | 2021-06-17 11:30 | CCD | Continuity of Care Document ---
Author Jess Rivas Organization Unknown Address Unknown Phone [phone] Care Team Providers Care Voice Writing Reporter Name Role Phone Linda Cuello D.O. AUTM Problems Active Problems Provider Date Elevated blood-pressure reading without diagnosis of h ypertension Linda Riley D.O. Onset: 06/08/2016 Active or passive immunization Linda Ceullo D.O. On set: 06/08/2016 Suspected sickle cell [...] saxenda pen once a day 100units E66.9 Ildefonso Mcneil.O Yareli 02/21/2019 Vitamin D 25mcg (1000 Ut) Tablets 4 tabs by mouth every day Unknown Medications Administered in Office Medication SIG Qnty Indications Ordering Provider Date Immunization Administration Single Or Co mbination Injection Nurse 04/22/2020 Immunization Administration Single Or Co mbination Injection Nurse 06/07/2017 Immunization Adminstration 2+ Single Or Combination Injection Ildefonso Haro.OYareli 06/08/2016 Immunization Administration Single Or Co mbination Injection Ildefonso Mcneil .OYareli 06/08/2016 Immunizations CPT Code Status Date Vaccine Lot # [id number] Given 04/22/2020 Influenza Virus Vaccine, Quadrivalent, Split, Preservative Free [id number] Given 06/07/2017 Influenza Vaccin e Quadrivalent Preser/Antibiotic Free Im Use [id number] Given 06/08/2016 Tetanus, Diphthe jennyfer Toxoids/Acellular Pertussis Vaccine 7 Or > [id number] Vital Signs Date Vital Result Comment 08/16/2020 1:39pm BP Systolic 126 mmHg BP Diastolic 78 mmHg Height 63.3 inches 5'3.30" Weight 219.00 lb BMI (Body Mass Index) 38.4 kg/m2 Heart Rate 97 /min Respiratory Rate 19 /min Body Temperature 97.2 F O2 % BldC Oximetry 98 % [place] Body Weight 115 lb 01/26/2020 8:03am BP Systolic 128 mmHg BP Diastolic 74 mmHg Height 63.3 inches 5'3.30" Weight 204.00 lb BMI (Body Mass Index) 35.8 kg/m2 Heart Rate 105 /min Respiratory Rate 18 /min Body Temperature 97.4 F O2 % BldC Oximetry 97 % [place] Body Weight 115 lb Results Test Acquired Date Facility Test Result H/L Range Note Laboratory test finding 06/04/2021 [facility] Outpatient T esting (Registration) [address] [place] [address] [phone] Sars Covid-19 Amplification NEGATIVE Normal Nega tive 1 Ua W/ Reflex To Culture 06/04/2021 [facility] Outpatient T esting (Registration) [address] [place] [address] [phone] Appearance, Urine RFX CLOUDY High Clear Color, Urine RFX YELLOW Normal Yellow PH,Urine RFX 5.0 units Normal 5.0-9.0 Specific [place] Ur Auto RFX 1.018 Normal 1.002-1.035 Protein, [...] /LPF Normal 0-1 Reflex Urine Culture 06/04/2021 [facility] Outpatient Test ing (Registration) [address] [place] [address] [phone] Reflex Urine Culture FULL REPORT IN L <SEE NOTE> Norm al 2 Laboratory test finding 06/04/2021 [facility] Outpatient T esting (Registration) [address] [place] [address] [phone] Lactic Acid Sepsis Protocol 0.8 mmol/L Normal 0.4- 2.0 3 CBC With Differential 06/03/2021 [facility] Outpatient Mel ting (Registration) [address] [place] [address] [phone] White Blood Count 12.6 10 High 4.0-10.0 [...] 36.0-66.0 Lymph % 18.9 % Low 24.0-44.0 [place] % 8.1 % High 2.0-8.0 Eos % 0.6 % Normal 0.0-3.0 Baso % 0.3 % Normal 0.0-1.0 Immature Granulocyte % 0.2 % Normal 0-3.0 Nucleated Red Blood Cell % 0.0 % Normal 0-0 Neutrophils # 9.0 10 High 1.5-8.5 Lymph # 2.4 10 Normal 1.5-5.0 [place] # 1.0 10 High 0.0-0.8 Eos # 0.1 10 Normal 0.0-0.5 Baso # 0.0 10 Normal 0.0-0.2 Liver Profile 06/03/2021 [facility] Outpatient Testi ng (Registration) [address] [place] [address] [phone] Ast/Sgot 30 U/L Normal 7-37 Alt/SGPT 29 U/L Normal 12-78 Alkaline Phosphatase 112 U/L Normal 45-117 Bilirubin,Total 0.4 mg/dL Normal 0.2-1.0 Bilirubin,Direct < 0.1 mg/dL Normal 0.0-0.2 Total Protein 8.4 GM/DL High 6.4-8.2 Albumin 3.6 GM/DL Normal 3.2-5.2 Albumin/Globulin Ratio 0.8 Low 1.2-2.2 Basic Metabolic Profile 06/03/2021 [facility] Outpatient T esting (Registration) [address] [place] [address] [phone] Glucose, Fasting 93 mg/dL Normal 70-100 Blood [...] mg/dL Normal 8.5-10.1 Laboratory test finding 06/03/2021 [facility] Outpatient T esting (Registration) [address] [place] [address] [phone] Lipase 78 U/L Normal 73-393 1 A [...] pathogens. DISCLAIMER: Testing was performed using the [employer] SARS-CoV-2 test. This test was developed and its performance characteristics determined by [employer]. This test has not been FDA cleared [...] Little GFR Left ESRD GFR <15 on CAREER SERVICES OFFICER 5 Testing was performed on a S LIGHTLY hemolyzed specimen. Suggest recollection of specimen for more accurate test results. Procedures Description No Information Available Medical Devices Description No Information Available Encounters Description No Information Available Assessments Description No Information Available Plan of Treatment Future Appointment(s):* 06/13/2021 8:30 am - CHRISTOPHER Arreola at [facility] * 08/17/2021 3:40 pm - Linda Cuello D.O. at [facility] Functional Status Description No Information Available Mental Status Description No Information Available Referrals Description No Information Available
--- OUTSIDE RECORDS SUMMARY | 2021-06-17 11:30 | CCD | Continuity of Care Document ---
Author Author Jess GARCIA PA Organization Unknown Address [address], [address] [place] [address] Phone [phone] Care Team Providers Care Child Care Teacher Name Role Phone Linda Cuello D.O. AUTM Harpreet Ennis D.O. AUTM [phone] Problems Description No Information Available Social History [...] lb BMI (Body Mass Index) 38.7 kg/m2 [place] Body Weight 120 lb Weight 102.230 kg BSA (Body Surface Area) 2.06 m2 Results Test Acquired Date Facility Test Result H/L Range Note Laboratory test finding 06/04/2021 [facility] Lab [address] [place], [place] [id number] [phone] Pathology Request For Service (SEE NOTE) 1 Reflex Urine Culture 06/04/2021 [facility] enter Main Lab [address] [place] [address] [phone] Reflex Urine Culture FULL REPORT IN L [...] fecalith in distal portion of the appendix. Senior Linux Administrator in one. - 06/06/2021 - 1351 Signed Amando Estrada MD 06/07/2021 1344 2 FULL REPORT IN LAB NOTES (eC W and Medent). 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 Assessments Date Code Description Provider 06/13/2021 K35.80 Unspecified acute appendicitis T CHRISTOPHER White 06/13/2021 Z48.815 Encounter for surgic al aftercare following surgery on the digestive system CHRISTOPHER Rutherford 06/13/2021 Z90.49 Acquired absence of other specif ied parts of digestive tract CHRISTOPHER Rutherford Plan of Treatment Future Appointment(s):* 06/20/2021 1:45 pm - CHRISTOPHER Rutherford at [facility] 06/13/2021 - CHRISTOPHER Rutherford* K35.80 Unspecified acute appendicitis * Z48.815 Encounter for surgical aftercare following surgery on the digestive system * Z90.49 Acquired absence of other specified parts of digestive tract Functional Status Description No Information Available Mental Status Description No Information Available Referrals Description No Information Available
--- OUTSIDE RECORDS SUMMARY | 2021-06-17 11:30 | CCD | Continuity of Care Document ---
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 AUTM Harpreet Ennis D.O. AUTM [phone] Problems Description No Information Available Social History [...] lb BMI (Body Mass Index) 38.7 kg/m2 [place] Body Weight 120 lb Weight 102.230 kg BSA (Body Surface Area) 2.06 m2 Results Test Acquired Date Facility Test Result H/L Range Note Laboratory test finding 06/04/2021 [facility] [address] [place], [place] [id number] [phone] Pathology Request For Service (SEE NOTE) 1 Reflex Urine Culture 06/04/2021 [facility] enter Main Lab [address] [place] [address] [phone] Reflex Urine Culture FULL REPORT IN L [...] fecalith in distal portion of the appendix. 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 - 06/06/2021 - 1351 Signed [...] 06/20/2021 1:45 pm - CHRISTOPHER Rutherford at [facility] 06/13/2021 - CHRISTOPHER Rutherford* K35.80 Unspecified acute appendicitis Functional Status Description No Information Available Mental Status Description No Information Available Referrals Description No Information Available
--- OUTSIDE RECORDS SUMMARY | 2021-06-17 11:30 | CCD | Continuity of Care Document ---
Author Jess Rivas Organization Unknown Address Unknown Phone [phone] Care Team Providers Care Therapy Aide Name Role Phone Linda Cuello D.O. AUTM [...] CPT Code Status Date Vaccine Lot # [id number] Given 04/22/2020 Influenza Virus Vaccine, Quadrivalent, Split, Preservative Free [id number] Given 06/07/2017 Influenza Vaccin e Quadrivalent Preser/Antibiotic Free Im Use [id number] Given 06/08/2016 Tetanus, Diphthe jennyfer Toxoids/Acellular Pertussis Vaccine 7 Or > [id number] Vital Signs Date Vital Result Comment 08/16/2020 1:39pm BP Systolic 126 mmHg BP Diastolic 78 mmHg Height 63.3 inches 5'3.30" Weight 219.00 lb BMI (Body Mass Index) 38.4 kg/m2 Heart Rate 97 /min Respiratory Rate 19 /min Body Temperature 97.2 F O2 % BldC Oximetry 98 % [place] Body Weight 115 lb 01/26/2020 8:03am BP Systolic 128 mmHg BP Diastolic 74 mmHg Height 63.3 inches 5'3.30" Weight 204.00 lb BMI (Body Mass Index) 35.8 kg/m2 Heart Rate 105 /min Respiratory Rate 18 /min Body Temperature 97.4 F O2 % BldC Oximetry 97 % [place] Body Weight 115 lb Results Test Acquired Date Facility Test Result H/L Range Note Laboratory test finding 06/04/2021 [facility] Outpatient T esting (Registration) [address] [place] [address] [phone] Sars Covid-19 Amplification NEGATIVE Normal Nega tive 1 Ua W/ Reflex To Culture 06/04/2021 [facility] Outpatient T esting (Registration) [address] [place] [address] [phone] Appearance, Urine RFX CLOUDY High Clear Color, Urine RFX YELLOW Normal Yellow PH,Urine RFX 5.0 units Normal 5.0-9.0 Specific [place] Ur Auto RFX 1.018 Normal 1.002-1.035 Protein, [...] /LPF Normal 0-1 Reflex Urine Culture 06/04/2021 [facility] Outpatient Test ing (Registration) [address] [place] [phone] Reflex Urine Culture FULL REPORT IN L <SEE NOTE> Norm al 2 Laboratory test finding 06/04/2021 [facility] Outpatient T esting (Registration) [address] [place] [address] [phone] Lactic Acid Sepsis Protocol 0.8 mmol/L Normal 0.4- 2.0 3 CBC With Differential 06/03/2021 [facility] Outpatient Mel ting (Registration) [address] [place] [address] [phone] White Blood Count 12.6 10 High 4.0-10.0 [...] 36.0-66.0 Lymph % 18.9 % Low 24.0-44.0 [place] % 8.1 % High 2.0-8.0 Eos % 0.6 % Normal 0.0-3.0 Baso % 0.3 % Normal 0.0-1.0 Immature Granulocyte % 0.2 % Normal 0-3.0 Nucleated Red Blood Cell % 0.0 % Normal 0-0 Neutrophils # 9.0 10 High 1.5-8.5 Lymph # 2.4 10 Normal 1.5-5.0 [place] # 1.0 10 High 0.0-0.8 Eos # 0.1 10 Normal 0.0-0.5 Baso # 0.0 10 Normal 0.0-0.2 Liver Profile 06/03/2021 [facility] Outpatient Testi ng (Registration) [address] [place] [phone] Ast/Sgot 30 U/L Normal 7-37 Alt/SGPT 29 U/L Normal 12-78 Alkaline Phosphatase 112 U/L Normal 45-117 Bilirubin,Total 0.4 mg/dL Normal 0.2-1.0 Bilirubin,Direct < 0.1 mg/dL Normal 0.0-0.2 Total Protein 8.4 GM/DL High 6.4-8.2 Albumin 3.6 GM/DL Normal 3.2-5.2 Albumin/Globulin Ratio 0.8 Low 1.2-2.2 Basic Metabolic Profile 06/03/2021 [facility] Outpatient T esting (Registration) [address] [place] [address] [phone] Glucose, Fasting 93 mg/dL Normal 70-100 Blood [...] mg/dL Normal 8.5-10.1 Laboratory test finding 06/03/2021 [facility] Outpatient T esting (Registration) [address] [place] [address] [phone] Lipase 78 U/L Normal 73-393 1 A [...] pathogens. DISCLAIMER: Testing was performed using the [employer] SARS-CoV-2 test. This test was developed and its performance characteristics determined by [employer]. This test has not been FDA cleared [...] Little GFR Left ESRD GFR <15 on CASINO DUTY MANAGER 5 Testing was performed on a S LIGHTLY hemolyzed specimen. Suggest recollection of specimen for more accurate test results. Procedures Description No Information Available Medical Devices Description No Information Available Encounters Description No Information Available Assessments Description No Information Available Plan of Treatment Future Appointment(s):* 06/13/2021 8:30 am - CHRISTOPHER Arreola at [facility] * 08/17/2021 3:40 pm - Linda Cuello D.O. at [facility] Functional Status Description No Information Available Mental Status Description No Information Available Referrals Description No Information Available
--- OUTSIDE RECORDS SUMMARY | 2021-06-17 11:30 | CCD | Continuity of Care Document ---
Author Author Jess GARCIA PA Organization Unknown Address [address] [facility] [facility], [address] [place] [address] Phone [phone] Care Team Providers Care Equip Tech Name Role Phone Linda Cuello D.O. AUTM [phone] Harpreet Ennis D.O. AUTM [phone] Problems Description No Information Available Social History [...] lb BMI (Body Mass Index) 38.7 kg/m2 [place] Body Weight 120 lb Weight 102.230 kg BSA (Body Surface Area) 2.06 m2 Results Test Acquired Date Facility Test Result H/L Range Note Laboratory test finding 06/04/[address] [facility] [address] [place], [place] [id number] [phone] Pathology Request For Service (SEE NOTE) 1 Reflex Urine Culture 06/04/2021 [facility] enter Main Lab [address] [place] [address] [phone] Reflex Urine Culture FULL REPORT IN L [...] fecalith in distal portion of the appendix. 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 - 06/06/2021 - 1351 Signed [...] 06/20/2021 1:45 pm - CHRISTOPHER Rutherford at [facility] 06/13/2021 - CHRISTOPHER Rutherford* K35.80 Unspecified acute appendicitis Functional Status Description No Information Available Mental Status Description No Information Available Referrals Description No Information Available
--- OUTSIDE RECORDS SUMMARY | 2021-06-17 11:31 | CCD ---
Author Author [facility] Organization [facility] Address Unknown Phone Unavailable Care Team Providers Care Director Of Casework Department Name Role Phone MEDENT_806, NA Unavailable Unavailable [...] Unavailable Unavailable KOKO-ROBIN, ERIKA DO Unavailable Unavailable O'terrance, A Randy PA Unavailable Unavailable O'terrance, A Randy PA Unavailable Unavailable O'terrance, A Randy PA Unavailable Unavailable O'terrance, A Randy PA Unavailable Unavailable O'terrance, A Randy PA Unavailable Unavailable O'terrance, A Randy PA Unavailable Unavailable O'terrance, A Randy PA Unavailable Unavailable O'terrance, A Randy PA Unavailable Unavailable O'terrance, A Randy PA Unavailable Unavailable O'terrance, A Randy PA Unavailable Unavailable O'terrance, A Randy PA Unavailable Unavailable O'terrance, A Randy PA Unavailable Unavailable O'terrance, A Randy PA Unavailable Unavailable O'terrance, A Randy PA Unavailable Unavailable O'terrance, A Randy PA Unavailable Unavailable O'terrance, A Randy PA Unavailable Unavailable O'terrance, A Randy PA Unavailable Unavailable O'terrance, A Randy PA Unavailable Unavailable O'terrance, A Randy PA Unavailable Unavailable O'terrance, A Randy PA Unavailable Unavailable O'terrance, A Randy PA Unavailable Unavailable O'terrance, A Randy PA Unavailable Unavailable O'terrance, A Randy PA Unavailable Unavailable O'terrance, A Randy PA Unavailable Unavailable O'terrance, A Randy PA Unavailable Unavailable O'terrance, A Randy PA Unavailable Unavailable O'terrance, A Randy PA Unavailable Unavailable O'terrance, A Randy PA Unavailable Unavailable O'terrance, A Randy PA Unavailable Unavailable O'terrance, A Randy PA Unavailable Unavailable O'terrance, A Randy PA Unavailable Unavailable O'terrance, A Randy PA Unavailable Unavailable O'terrance, A Randy PA Unavailable Unavailable Sanchez, L Ivonne RPA Unavailable Unavailable Sanchez, L Ivonne RPA Unavailable Unavailable Sanchez, L Ivonne RPA Unavailable Unavailable Sanchez, L Ivonne RPA Unavailable Unavailable Sanchez, L Ivonne RPA Unavailable Unavailable Sanchez, L Ivonne RPA Unavailable Unavailable Sanchez, L Ivonne RPA Unavailable Unavailable Sanchez, L Ivonne RPA Unavailable Unavailable Sanchez, L Ivonne RPA Unavailable Unavailable Sanchez, L Ivonne RPA Unavailable Unavailable Sanchez, L Ivonne RPA Unavailable Unavailable Sanchez, L Ivonne RPA Unavailable Unavailable Sanchez, L Ivonne RPA Unavailable Unavailable Sanchez, L Ivonne RPA Unavailable Unavailable Sanchez, L Ivonne RPA Unavailable Unavailable Sanchez, L Ivonne RPA Unavailable Unavailable Sanchez, L Ivonne RPA Unavailable Unavailable Sanchez, L Ivonne RPA Unavailable Unavailable Sanchez, L Ivonne RPA Unavailable Unavailable Sanchez, L Ivonne RPA Unavailable Unavailable Sanchez, L Ivonne RPA Unavailable Unavailable Sanchez, L Ivonne RPA Unavailable Unavailable Sanchez, L Ivonne RPA Unavailable Unavailable Sanchez, L Ivonne RPA Unavailable Unavailable Sanchez, L Ivonne RPA Unavailable Unavailable Sanchez, L Ivonne RPA Unavailable Unavailable Sanchez, L Ivonne RPA Unavailable Unavailable Sanchez, L Ivonne RPA Unavailable Unavailable Sanchez, L Ivonne RPA Unavailable Unavailable Sacnhez, L Ivonne RPA Unavailable Unavailable Sanchez, L Ivonne RPA Unavailable Unavailable Sanchez, L Ivonne RPA Unavailable Unavailable Melinda Pinzon MD Unavailable Unavailable [...] Unavailable Unavailable Melinda Pinzon MD Unavailable Unavailable Re-disclosure Warning The records [...] is protected by Article 27-F of the [place] Public [employer] law. If you continue you may have access to information: Regarding HIV / AIDS; Provided by facilities licensed or operated by the [place] Office of Mental Health; or Provided by the [place] Office for People With Developmental Disabilities. If such information is present, then the following [place] [facility] mandated warning applies: This information has been [...] law may result in a fine or care home sentence or both. A general authorization for the release of medical or other information is NOT sufficient authorization for further disc losure. Family History Family Member Name Family Member Gender Family Member Status Date o f Status Description Data Source(s) Unknown Unknown Problem [facility] ([facility]) Unknown Female Problem [facility] ([facility] Unknown Female Problem [facility] ([facility]) Unknown Female Problem [facility] ([facility]) Encounters Encounter Providers Location Date Indications Data Source(s ) Office Visit Attender: Ivonne Cohen/Radha/Zafar/Jessica licona 06/13/2021 12:30:00 PM EST [facility] ([facility] Outpatient Attender: Randy WHITE [facility] 06/13/2021 07:30:00 AM EST [facility] ([facility]) Outpatient Attender: Christiane Murillo 08/03/2020 07:25:28 PM EDT - 06/03/2021 09:26:32 PM EDT [facility] Outpatient Attender: RANDY canales 03/15/2021 01:00:00 PM EDT [facility] ([facility] Outpatient [address] [facility] [facility] [address] 12/28/2020 12:00:00 AM EDT eCW1 (Pending sale to [facility]) Outpatient Attender: ERIKA YING DO [facility] 08/16/2020 12:40:00 PM EST MED[facility] ([facility]) Outpatient Attender: BELL MEDENT_806 [facility] 04/22/2020 03:15:00 PM EDT [facility] ([facility]) Immunizations Vaccine Date Status Description Data Source(s) COVID-19 VACCINE Pfizer 05/04/2021 12:00:00 AM EDT completed [facility] Vaccine Series Complete: YESThis Data wa s Submitted to [facility]. COVID-19 VACC, MRNA(PFIZER)/PF 05/04/2021 12:00:00 AM EDT completed [facility] COVID-19 VACCINE Pfizer 09/08/2020 12:00:00 AM EST completed [facility] Vaccine Series Complete: YESThis Data wa s Submitted to [facility]. COVID-19 VACCINE Pfizer 08/18/2020 12:00:00 AM EST completed [facility] Vaccine Series Complete: NOThis Data was Submitted to [facility]. New in 2011. IIV4 04/22/2020 03:26:00 PM EDT completed [facility] ([facility]) Medications Medication Brand Name Start Date Product Form Dose Route Admi nistrative Instructions Pharmacy Instructions Status Indications Reaction Description Data Source(s) Amoxicillin 500 MG / Clavulanate 125 MG Oral Tablet 50 0-125 mg AMOXICILLIN/POTASSIUM CLAV 06/04/2021 12:00:00 AM EDT tablet 14 TAKE ONE TABLET BY MOUTH TWICE A DAY TAKE ONE TABLET BY MOUTH TWICE A DAY SOLD: 06/04/2021 [facility] 5-325 mg 06/04/2021 12:00:00 AM EDT tablet 15 TAKE ONE TABLET BY MOUTH THREE TIMES A DAY NEEDED FOR PAIN MAXIMUM DAILY DOSE = 3 TABLET TAKE ONE TABLET BY MOUTH THREE TIMES A DAY NEEDED FOR PAIN MAXIMUM DAILY DOSE = 3 TABLET SOLD: 06/04/2021 [facility] No Active Medications 03/15/2021 12:00:00 AM EDT completed [facility] ([facility]) Cephalexin 500 MG Oral Tablet Cephalexin 03/15/2021 12:00:00 AM EDT ORAL active [facility] ([facility]) 500 mg 03/15/2021 12:00:00 AM EDT tablet 40 TAKE TWO TABLETS BY MOUTH TWICE A DAY FOR 10 DAYS TAKE TWO TABLETS BY MOUTH TWICE A DAY FOR 10 DAYS SOLD : 03/15/2021 [facility] Immunization Administration Single Or Combination 04/22/2020 12:00:00 AM EDT completed [facility] ([facility]) Medication administered onsite Insurance Providers Payer name Policy type / Coverage type Policy ID Covered libertarian ID Covered libertarian's relationship to kennedy Policy Kennedy Plan Information [id number] [facility] [employer] [id number] Self [id number] [facility] Part B [id number] Self [id number] [employer] [id number] Self [id number] [facility] Part B [id number] Self [id number] [employer] [id number] S elf [id number] [employer] [id number] [facility] [id number] SP [id number] [employer] [id number] S elf [id number] [employer] [id number] S elf [id number] [employer] [id number] SP [id number] [employer] [id number] SP [id number] [employer] [id number] S elf [id number] [employer] [id number] Self [employer] [id number] S elf [employer] Part B [id number] Self [id number] UMR O [id number] O [id number] Problems, Conditions, and Diagnoses Code Display Name Description Problem Type Effective Dates Data Source(s) Z87.440 History of chronic urinary tract infecti on History of chronic urinary tract infection Problem 06/13/2021 12:00:00 AM EST [facility] ([facility]) Z82.69 FH: Musculoskeletal disease FH: Musculoskeletal diseas e Problem 06/13/2021 12:00:00 AM EST [facility] ([facility]) Surgeries/Procedures Procedure Description Date Indications Data Source(s) OFFICE OUTPATIENT VISIT 25 MINUTES 06/13/2021 12:00:00 AM EST [facility] ([facility]) OFFICE OUTPATIENT NEW 30 MINUTES 03/15/2021 12:00:00 A M EDT [facility] ([facility]) Results ID Date Data Source [id number] 06/13/2021 09:12:00 AM EST [facility] ([facility]) Name Value Range Interpretation Code Description Data Stephanie rce(s) Supporting Document(s) Inhouse Leukocytes Laboratory test result MED[facility] ([facility]) Inhouse Nitrite Laboratory test result [facility] ([facility]) Inhouse Protein Laboratory test result [facility] ([facility]) Inhouse Urobilinogen Laboratory test result [facility] ([facility]) Inhouse Hemoglobin Laboratory test result [facility] ([facility]) Inhouse PH 6 [facility] ([facility]) Inhouse Ketones Laboratory test result [facility] ([facility]) Inhouse Specific [place] 1.010 MED[facility] ([facility]) Inhouse Glucose Laboratory test result [facility] ([facility]) Inhouse Bilirubin Laboratory test result [facility] ([facility]) ID Date Data Source [id number] 06/04/2021 11:00:00 AM EDT MED[facility] ([facility], ) Name Value Range Interpretation Code Description Data Stephanie rce(s) Supporting Document(s) Surgical pathology study Laboratory test result MED[facility] ([facility], ) FINAL DIAGNOSIS Appendix, appendectomy: Acute suppurative appendicitis with serositis. 06/07/2021 - 1328 CLINICAL DIAGNOSIS Acute appendicitis 06/06/2021 - 1350 GROSS DIAGNOSIS Received in formalin labeled "appendix" is an approximately 5.5 x 3 x 1.5 cm. portion of appendix, including t he mesoappendiceal fat. The serosal lining is dull and covered by purulent exudate. Sectioning reveals a firm fecalith in distal portion of the appendix. Director Orange in one. - 06/06/[id number] Signed Amando Estrada MD 06/07/2021 1344 ID Date Data Source [id number] 06/04/2021 09:16:00 AM EDT [facility] ([facility]) Name Value Range Interpretation Code Description Data Stephanie rce(s) Supporting Document(s) Laboratory test finding (navigational concept) Laboratory test r esult Normal (applies to non-numeric results) [facility] ([facility]) A false negative result may occur if a s pecimen is improperly collected, transported or handled. False [...] pathogens. DISCLAIMER: Testing was performed using the [employer] SARS-CoV-2 test. This test was developed and its performance characteristics determined by [employer]. This test has not been FDA cleared [...] the authorization is terminated or revoked sooner. ID Date Data Source [id number] 06/04/2021 09:16:00 AM EDT [facility] Name Value Range Interpretation Code Description Data Stephanie rce(s) Supporting Document(s) SARS coronavirus 2 RNA [Presence] in Res piratory specimen by MARQUITA with probe detection NEGATIVE [facility] This lab was ordered by [facility] a nd reported by [facility]. ID Date Data Source [id number] 06/04/2021 07:17:00 AM EDT [facility] ([facility], ) Name Value Range Interpretation Code Description Data Stephanie rce(s) Supporting Document(s) Reflex Urine Culture Laboratory test result Norm al (applies to non-numeric results) [facility] ([facility], ) FULL REPORT IN LAB NOTES (eCW and Medent ). SPECIMEN APPEARS CONTAMINATED ID Date Data Source [id number] 06/04/2021 07:17:00 AM EDT [facility] ([facility]) Name Value Range Interpretation Code Description Data Stephanie rce(s) Supporting Document(s) Reflex Urine Culture Laboratory test result Norm al (applies to non-numeric results) [facility] ([facility]) FULL REPORT IN LAB NOTES (eCW and Med[facility] ). SPECIMEN APPEARS CONTAMINATED ID Date Data Source [id number] 06/04/2021 07:17:00 AM EDT [facility] ([facility]) Name Value Range Interpretation Code Description Data Stephanie rce(s) Supporting Document(s) Color, Urine RFX Laboratory test result Normal ( applies to non-numeric results) [facility] ([facility]) Appearance, Urine RFX Laboratory test result Above high no rmal [facility] ([facility]) Specific [place] Ur Auto RFX 1.018 1.002-1.035 Nor mal (applies to non-numeric results) [facility] ([facility]) PH,Urine RFX 5.0 units 5.0-9.0 Normal (applies to non-numeric res ults) [facility] ([facility]) Glucose, Urine (Ua) Auto RFX Laboratory test result Normal (applies to non- numeric results) [facility] ([facility]) Protein, Urine Auto RFX Laboratory test result Above high normal [facility] ([facility]) Ketone, Urine Auto RFX Laboratory test result Above high n ormal [facility] ([facility]) Urobilinogen, Urine Auto RFX 0.2 mg/dL 0.0-2.0 Nor mal (applies to non-numeric results) [facility] ([facility]) Nitrite, Urine Auto RFX Laboratory test result N ormal (applies to non-numeric results) [facility] ([facility]) Bilirubin, Urine Auto RFX Laboratory test result Normal (applies to non- numeric results) [facility] ([facility]) Leukocyte Esterase Ur Auto RFX Laboratory test result Abov e high normal [facility] ([facility]) Blood, Urine Blood RFX Laboratory test result Above high n ormal [facility] ([facility]) WBC, Urine Auto RFX 50 /HPF 0-3 Above high normal [facility] ([facility]) RBC, Urine Auto RFX 11 /HPF 0-3 Above high normal [facility] ([facility]) Bacteria, Urine Auto RFX Laboratory test result Above high normal [facility] ([facility]) Mucus, Urine RFX Laboratory test result Normal ( applies to non-numeric results) [facility] ([facility]) Squam Epithelial Cell Ur Aurfx 6 /HPF 0-6 N ormal (applies to non-numeric results) [facility] ([facility]) Hyaline Cast, Urine Auto RFX 0 /LPF 0-1 Normal (appl ies to non-numeric results) [facility] ([facility]) ID Date Data Source [id number] 06/04/2021 07:12:00 AM EDT [facility] ([facility]) Name Value Range Interpretation Code Description Data Stephanie rce(s) Supporting Document(s) Lactate [Mass/volume] in Serum or Plasma 0.8 mmol/L 0.4-2.0 Normal (applies to non-numeric results) [facility] ([facility]) Y/N query for Sepsis Lactate Rule: Y ID Date Data Source [id number] 06/03/2021 10:22:00 PM EDT [facility] ([facility]) Name Value Range Interpretation Code Description Data Stephanie rce(s) Supporting Document(s) Lipase [Enzymatic activity/volume] in Serum or Plasma 78 U/L 73-393 Normal (applies to non-numeric results) [facility] ([facility]) ID Date Data Source [id number] 06/03/2021 10:22:00 PM EDT [facility] ([facility]) Name Value Range Interpretation Code Description Data Stephanie rce(s) Supporting Document(s) Glucose, Fasting 93 mg/dL 70-100 Normal (applies to non-numeric results) [facility] ([facility]) Blood Urea Nitrogen 9 mg/dL 7-18 Normal (applies to non-nume gonzález results) [facility] ([facility]) Glomerular Filtration Rate Laboratory test result Normal (applies to non- numeric results) [facility] ([facility]) <content>Units are mL/min/1.73 m2</content>
<content></content>
<content>Chronic Kidney Disease Staging per NKF:</content>
<content></content>
<content>Stage I & II GFR >=60 Normal to Mildly Decreased</content>
<content>Stage III GFR 30-59 Moderately Decreased</content>
<content>Stage IV GFR 15-29 Severely Decreased</content>
<content>Stage V GFR <15 Very Little GFR Left</content>
<content>ESRD GFR <[address]</content>
<content></content> Creatinine For GFR 0.81 mg/dL 0.55-1.30 Normal (applies to non -numeric results) [facility] ([facility]) Sodium Level 140 meq/L 136-145 Normal (applies to non-numeric res ults) [facility] ([facility]) Potassium Serum 4.5 meq/L 3.5-5.1 Normal (applies to non-numeric results) [facility] ([facility]) Testing was performed on a SLIGHTLY hemo lyzed specimen. Suggest recollection of specimen for more accurate test results. Carbon Dioxide Level 26 meq/L 21-32 Normal (applies to non-num adali results) [facility] ([facility] Chloride Level 108 meq/L 98-107 Above high normal [facility] ([facility]) Anion Gap 6 meq/L 8-16 Below low normal [facility] ( [facility] Calcium Level 9.4 mg/dL 8.5-10.1 Normal (applies to non-numeric re sults) [facility] ([facility]) ID Date Data Source [id number] 06/03/2021 10:22:00 PM EDT [facility] ([facility]) Name Value Range Interpretation Code Description Data Stephanie rce(s) Supporting Document(s) Alt/SGPT 29 U/L 12-78 Normal (applies to non-numeric resul ts) [facility] ([facility]) Ast/Sgot 30 U/L 7-37 Normal (applies to non-numeric resul ts) [facility] ([facility]) Alkaline Phosphatase 112 U/L 45-117 Normal (applies to non-num adali results) [facility] ([facility]) Bilirubin,Direct Laboratory test result 0.0-0.2 Normal ( applies to non-numeric results) [facility] ([facility]) Bilirubin,Total 0.4 mg/dL 0.2-1.0 Normal (applies to non-numeric results) [facility] ([facility]) Total Protein 8.4 GM/DL 6.4-8.2 Above high normal [facility] ([facility]) Albumin 3.6 GM/DL 3.2-5.2 Normal (applies to non-numeric resul ts) [facility] ([facility]) Albumin/Globulin Ratio 0.8 1.2-2.2 Below low normal [facility] ([facility]) ID Date Data Source [id number] 06/03/2021 10:22:00 PM EDT [facility] ([facility]) Name Value Range Interpretation Code Description Data Stephanie rce(s) Supporting Document(s) Red Blood Count 5.08 10 4.00-5.40 Normal (applies to non-numeric results) [facility] ([facility]) White Blood Count 12.6 10 4.0-10.0 Above high normal [facility] ([facility]) Hematocrit 45.3 % 36.0-47.0 Normal (applies to non-numeric resul ts) [facility] ([facility]) Hemoglobin 14.0 g/dL 12.0-15.5 Normal (applies to non-numeric resul ts) [facility] ([facility]) Mean Corpuscular Volume 89.2 fl 80.0-96.0 Normal ( applies to non-numeric results) [facility] ([facility]) Mean Corpuscular Hemoglobin 27.6 pg 27.0-33.0 Norm al (applies to non-numeric results) [facility] ([facility]) Mean Corpuscular HGB Conc 30.9 g/dL 32.0-36.5 Below low normal [facility] ([facility]) Red Cell Distribution Width 13.6 % 11.5-14.5 Norm al (applies to non-numeric results) [facility] ([facility]) Platelet Count, Automated 353 10 150-450 Normal (applies to non-numeric results) [facility] ([facility]) Neutrophils % 71.9 % 36.0-66.0 Above high normal [facility] ([facility] Lymph % 18.9 % 24.0-44.0 Below low normal [facility] ( [facility] Eos % 0.6 % 0.0-3.0 Normal (applies to non-numeric resul ts) [facility] ([facility]) [place] % 8.1 % 2.0-8.0 Above high normal [facility] ([facility]) Baso % 0.3 % 0.0-1.0 Normal (applies to non-numeric resul ts) [facility] ([facility]) Immature Granulocyte % 0.2 % 0-3.0 Normal (applies to non-n umeric results) [facility] ([facility]) Neutrophils # 9.0 10 1.5-8.5 Above high normal [facility] ([facility]) Nucleated Red Blood Cell % 0.0 % 0-0 Normal (applies to n on-numeric results) [facility] ([facility] Lymph # 2.4 10 1.5-5.0 Normal (applies to non-numeric resul ts) [facility] ([facility] [place] # 1.0 10 0.0-0.8 Above high normal [facility] ([facility]) Eos # 0.1 10 0.0-0.5 Normal (applies to non-numeric resul ts) [facility] ([facility]) Baso # 0.0 10 0.0-0.2 Normal (applies to non-numeric resul ts) [facility] ([facility]) ID Date Data Source [facility] DIGITAL / [facility] BILATERAL MAMMO SCREENING (Ultraso und if indicated) 12/28/2020 12:00:00 AM EDT eCW ([facility]) Name Value Range Interpretation Code Description Data Stephanie rce(s) Supporting Document(s) [facility] DIGITAL / [facility] BILAT ERAL MAMMO SCREENING (Ultrasound if indicated) [facility] ([facility]) ID Date Data Source [id number] 08/24/2020 07:14:00 AM EST [facility] ([facility]) Name Value Range Interpretation Code Description Data Stephanie rce(s) Supporting Document(s) White Blood Count 5.7 10 4.0-10.0 Normal (applies to non-numeri c results) [facility] ([facility]) Red Blood Count 4.73 10 4.00-5.40 Normal (applies to non-numeric results) [facility] ([facility]) Hemoglobin 12.9 g/dL 12.0-15.5 Normal (applies to non-numeric resul ts) [facility] ([facility]) Hematocrit 41.1 % 36.0-47.0 Normal (applies to non-numeric resul ts) [facility] ([facility]) Mean Corpuscular Volume 86.9 fl 80.0-96.0 Normal ( applies to non-numeric results) [facility] ([facility]) Mean Corpuscular Hemoglobin 27.3 pg 27.0-33.0 Norm al (applies to non-numeric results) [facility] ([facility]) Mean Corpuscular HGB Conc 31.4 g/dL 32.0-36.5 Below low normal [facility] ([facility]) Red Cell Distribution Width 13.8 % 11.5-14.5 Norm al (applies to non-numeric results) [facility] ([facility] Neutrophils % 52.5 % 36.0-66.0 Normal (applies to non-numeric re sults) [facility] ([facility] Platelet Count, Automated 357 10 150-450 Normal (applies to non-numeric results) [facility] ([facility]) [place] % 9.2 % 0.0-5.0 Above high normal [facility] ([facility]) Lymph % 34.5 % 24.0-44.0 Normal (applies to non-numeric resul ts) [facility] ([facility]) Immature Granulocyte % 0.2 % 0-3.0 Normal (applies to non-n umeric results) [facility] ([facility] Eos % 2.5 % 0.0-3.0 Normal (applies to non-numeric resul ts) [facility] ([facility] Baso % 1.1 % 0.0-1.0 Above high normal [facility] ([facility]) Nucleated Red Blood Cell % 0.0 % 0-0 Normal (applies to n on-numeric results) [facility] ([facility] Neutrophils # 3.0 10 1.5-8.5 Normal (applies to non-numeric re sults) [facility] ([facility] Eos # 0.1 10 0.0-0.5 Normal (applies to non-numeric resul ts) [facility] ([facility] Lymph # 2.0 10 1.5-5.0 Normal (applies to non-numeric resul ts) [facility] ([facility] [place] # 0.5 10 0.0-0.8 Normal (applies to non-numeric resul ts) [facility] ([facility] Baso # 0.1 10 0.0-0.2 Normal (applies to non-numeric resul ts) [facility] ([facility]) ID Date Data Source [id number] 08/24/2020 07:14:00 AM EST [facility] ([facility]) Name Value Range Interpretation Code Description Data Stephanie rce(s) Supporting Document(s) Triglycerides Level 42 mg/dL Normal (applies to non-nume gonzález results) [facility] ([facility] Cholesterol Level 165 mg/dL Normal (applies to non-numeri c results) [facility] ([facility] HDL Cholesterol 71 mg/dL Normal (applies to non-numeric results) [facility] ([facility] LDL Cholesterol 86 mg/dL Normal (applies to non-numeric results) [facility] ([facility] Cholesterol Risk Ratio 2.323 Normal (applies to non-n umeric results) [facility] ([facility]) Non-HDL-C 94 mg/dL Normal (applies to non-numeric resul ts) [facility] ([facility]) ID Date Data Source [id number] 08/24/2020 07:14:00 AM EST [facility] ([facility]) Name Value Range Interpretation Code Description Data Stephanie rce(s) Supporting Document(s) Thyroid Stimulating Hormone 1.830 uIU/ML 0.358-3.740 Norm al (applies to non- numeric results) [facility] ([facility] Free T4 1.11 ng/dL 0.76-1.46 Normal (applies to non-numeric resul ts) [facility] ([facility]) ID Date Data Source [id number] 08/24/2020 07:14:00 AM EST [facility] ([facility]) Name Value Range Interpretation Code Description Data Stephanie rce(s) Supporting Document(s) Blood Urea Nitrogen 13 mg/dL 7-18 Normal (applies to non-nume gonzález results) [facility] ([facility]) Glucose, Fasting 81 mg/dL 70-100 Normal (applies to non-numeric results) [facility] ([facility]) Glomerular Filtration Rate Laboratory test result Normal (applies to non- numeric results) [facility] ([facility]) <content>Units are mL/min/1.73 m2</content>
<content></content>
<content>Chronic Kidney Disease Staging per NKF:</content>
<content></content>
<content>Stage I & II GFR >=60 Normal to Mildly Decreased</content>
<content>Stage III GFR 30-59 Moderately Decreased</content>
<content>Stage IV GFR 15-29 Severely Decreased</content>
<content>Stage V GFR <15 Very Little GFR Left</content>
<content>ESRD GFR <[address]GE</content>
<content></content> Creatinine For GFR 0.76 mg/dL 0.55-1.30 Normal (applies to non -numeric results) [facility] ([facility] Sodium Level 142 meq/L 136-145 Normal (applies to non-numeric res ults) [facility] ([facility] Chloride Level 105 meq/L 98-107 Normal (applies to non-numeric r esults) [facility] ([facility] Potassium Serum 4.1 meq/L 3.5-5.1 Normal (applies to non-numeric results) [facility] ([facility]) Anion Gap 9 meq/L 8-16 Normal (applies to non-numeric resul ts) [facility] ([facility] Carbon Dioxide Level 28 meq/L 21-32 Normal (applies to non-num adali results) [facility] ([facility] Calcium Level 9.5 mg/dL 8.5-10.1 Normal (applies to non-numeric re sults) [facility] ([facility]) Alkaline Phosphatase 102 U/L 45-117 Normal (applies to non-num adali results) [facility] ([facility]) Alt/SGPT 30 U/L 12-78 Normal (applies to non-numeric resul ts) [facility] ([facility]) Ast/Sgot 18 U/L 7-37 Normal (applies to non-numeric resul ts) [facility] ([facility] Total Protein 7.6 GM/DL 6.4-8.2 Normal (applies to non-numeric re sults) [facility] ([facility]) Bilirubin,Total 0.4 mg/dL 0.2-1.0 Normal (applies to non-numeric results) [facility] ([facility] Albumin/Globulin Ratio 0.9 1.2-2.2 Below low normal [facility] ([facility]) Albumin 3.7 GM/DL 3.2-5.2 Normal (applies to non-numeric resul ts) [facility] ([facility]) Procedure Social History Code Duration Value Status Description Data Source(s ) Smoking 12/28/2020 12:00:00 AM EDT Never Smoker completed Never S moker eCW1 ([facility]) Smoking 08/16/2020 12:00:00 AM EST Never Smoked Cigarettes com pleted Never Smoked Cigarettes [facility] ([facility] Vital Signs ID Date Data Source UNK Name Value Range Interpretation Code Description Data Source(s) Diastolic blood pressure 68 mm[Hg] 68 mm[Hg] [facility] ([facility]) Body temperature 98.5 [degF] 98.5 [degF] [facility] ([facility]) Systolic blood pressure 135 mm[Hg] 135 mm[Hg] [facility] Jbphh body weight 120 [lb_av] 120 [lb_av] [facility] ([facility]) Body height 64 [in_i] 64 [in_i] [facility] ([facility]) 5'4" Body weight 225.38 [lb_av] 225.38 [lb_av] [facility] ([facility]) Body mass index (BMI) [Ratio] 38.7 kg/m2 38.7 k g/m2 [facility] ([facility]) Body weight 102.230 kg 102.230 kg [facility] ([facility]) Body surface area Derived from formula 2.06 m2 2.06 m2 [facility] ([facility]) Body temperature 97.8 [degF] 97.8 [degF] [facility] ([facility] Oxygen saturation in Arterial blood by Pulse oximetry 99 % 99 % [facility] ([facility] Jbphh body weight 115 [lb_av] 115 [lb_av] [facility] ([facility]) Systolic blood pressure 128 mm[Hg] 128 mm[Hg] [facility] ([facility]) Diastolic blood pressure 84 mm[Hg] 84 mm[Hg] [facility] ([facility] Body height 63.3 [in_i] 63.3 [in_i] [facility] ([facility]) 5'3.30" Body weight 222.38 [lb_av] 222.38 [lb_av] [facility] ([facility] Body mass index (BMI) [Ratio] 39.0 kg/m2 39.0 k g/m2 [facility] ([facility]) Heart rate 107 /min 107 /min [facility] ([facility]) Respiratory rate 18 /min 18 /min [facility] ( [facility] Systolic blood pressure 126 mm[Hg] 126 mm[Hg] [facility] ([facility]) Diastolic blood pressure 82 mm[Hg] 82 mm[Hg] [facility] ([facility]) Heart rate 98 /min 98 /min [facility] ([facility]) Respiratory rate 16 /min 16 /min [facility] ( [facility]) Oxygen saturation in Arterial blood by Pulse oximetry 99 % 99 % [facility] ([facility]) Body temperature 97.2 [degF] 97.2 [degF] [facility] ([facility]) Body weight 225.00 [lb_av] 225.00 [lb_av] [facility] T ([facility]) Body height 64 [in_i] 64 [in_i] [facility] ([facility]) 5'4" Body mass index (BMI) [Ratio] 38.6 kg/m2 38.6 k g/m2 [facility] ([facility]) Body weight 228 [lb_av] 228 [lb_av] eCW1 ([facility]) Body weight 103.42 kg 103.42 kg eCW1 ([facility]) Body height 63.5 [in_i] 63.5 [in_i] W1 ([facility]) Body mass index (BMI) [Ratio] 39.75 kg/m2 39.75 kg/m2 [facility] ([facility]) Systolic blood pressure 136 mm[Hg] 136 mm[Hg] e CW1 ([facility]) Diastolic blood pressure 88 mm[Hg] 88 mm[Hg] eCW1 ([facility]) Diastolic blood pressure 78 mm[Hg] 78 mm[Hg] [facility] ([facility] Body height 63.3 [in_i] 63.3 [in_i] [facility] ([facility]) 5'3.30" Body weight 219.00 [lb_av] 219.00 [lb_av] [facility] ([facility] Body mass index (BMI) [Ratio] 38.4 kg/m2 38.4 k g/m2 [facility] ([facility]) Heart rate 97 /min 97 /min [facility] ([facility]) Respiratory rate 19 /min 19 /min [facility] ( [facility] Body temperature 97.2 [degF] 97.2 [degF] [facility] ([facility]) Oxygen saturation in Arterial blood by Pulse oximetry 98 % 98 % [facility] ([facility]) Jbphh body weight 115 [lb_av] 115 [lb_av] [facility] ([facility]) Systolic blood pressure 126 mm[Hg] 126 mm[Hg] Fan [facility] ([facility])
--- OUTSIDE RECORDS SUMMARY | 2021-06-17 11:31 | CCD | Continuity of Care Document ---
Author Jess Rivas Organization Unknown Address Unknown Phone [phone] Care Team Providers Care Doubling Machine Operator Name Role Phone Linda Cuello D.O. AUTM [phone] Problems Active Problems Provider Date Elevated blood-pressure [...] CPT Code Status Date Vaccine Lot # [id number] Given 04/22/2020 Influenza Virus Vaccine, Quadrivalent, Split, Preservative Free [id number] Given 06/07/2017 Influenza Vaccin e Quadrivalent Preser/Antibiotic Free Im Use [id number] Given 06/08/2016 Tetanus, Diphthe jennyfer Toxoids/Acellular Pertussis Vaccine 7 Or > [id number] Vital Signs Date Vital Result Comment 08/16/2020 1:39pm BP Systolic 126 mmHg BP Diastolic 78 mmHg Height 63.3 inches 5'3.30" Weight 219.00 lb BMI (Body Mass Index) 38.4 kg/m2 Heart Rate 97 /min Respiratory Rate 19 /min Body Temperature 97.2 F O2 % BldC Oximetry 98 % [place] Body Weight 115 lb 01/26/2020 8:03am BP Systolic 128 mmHg BP Diastolic 74 mmHg Height 63.3 inches 5'3.30" Weight 204.00 lb BMI (Body Mass Index) 35.8 kg/m2 Heart Rate 105 /min Respiratory Rate 18 /min Body Temperature 97.4 F O2 % BldC Oximetry 97 % [place] Body Weight 115 lb Results Test Acquired Date Facility Test Result H/L Range Note Laboratory test finding 06/04/2021 [facility] Outpatient T esting (Registration) [address] [place] [address] [phone] Sars Covid-19 Amplification NEGATIVE Normal Nega tive 1 Ua W/ Reflex To Culture 06/04/2021 [facility] Outpatient T esting (Registration) [address] [place] [address] [phone] Appearance, Urine RFX CLOUDY High Clear Color, Urine RFX YELLOW Normal Yellow PH,Urine RFX 5.0 units Normal 5.0-9.0 Specific [place] Ur Auto RFX 1.018 Normal 1.002-1.035 Protein, [...] Normal 0-1 Reflex Urine Culture 06/04/2021 [facility] Outpatient Test ing (Registration) [address] [place] [address] [phone] Reflex Urine Culture FULL REPORT IN L <SEE NOTE> Norm al 2 Laboratory test finding 06/04/2021 [facility] Outpatient T esting (Registration) [address] [place] [address] [phone] Lactic Acid Sepsis Protocol 0.8 mmol/L Normal 0.4- 2.0 3 CBC With Differential 06/03/2021 [facility] Outpatient Mel ting (Registration) [address] [place] [address] [phone] White Blood Count 12.6 10 High 4.0-10.0 [...] 36.0-66.0 Lymph % 18.9 % Low 24.0-44.0 [place] % 8.1 % High 2.0-8.0 Eos % 0.6 % Normal 0.0-3.0 Baso % 0.3 % Normal 0.0-1.0 Immature Granulocyte % 0.2 % Normal 0-3.0 Nucleated Red Blood Cell % 0.0 % Normal 0-0 Neutrophils # 9.0 10 High 1.5-8.5 Lymph # 2.4 10 Normal 1.5-5.0 [place] # 1.0 10 High 0.0-0.8 Eos # 0.1 10 Normal 0.0-0.5 Baso # 0.0 10 Normal 0.0-0.2 Liver Profile 06/03/2021 [facility] Outpatient Testi ng (Registration) [address] [place] [address] [phone] Ast/Sgot 30 U/L Normal 7-37 Alt/SGPT 29 U/L Normal 12-78 Alkaline Phosphatase 112 U/L Normal 45-117 Bilirubin,Total 0.4 mg/dL Normal 0.2-1.0 Bilirubin,Direct < 0.1 mg/dL Normal 0.0-0.2 Total Protein 8.4 GM/DL High 6.4-8.2 Albumin 3.6 GM/DL Normal 3.2-5.2 Albumin/Globulin Ratio 0.8 Low 1.2-2.2 Basic Metabolic Profile 06/03/2021 [facility] Outpatient T esting (Registration) [address] [place] [address] [phone] Glucose, Fasting 93 mg/dL Normal 70-100 Blood [...] Normal 8.5-10.1 Laboratory test finding 06/03/2021 [facility] Outpatient T esting (Registration) [address] [place] [address] [phone] Lipase 78 U/L Normal 73-393 1 A [...] pathogens. DISCLAIMER: Testing was performed using the [employer] SARS-CoV-2 test. This test was developed and its performance characteristics determined by [employer]. 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 Suggest recollection of specimen for more accurate test results. Procedures Description No Information Available Medical Devices Description No Information Available Encounters Description No Information Available Assessments Description No Information Available Plan of Treatment Future Appointment(s):* 06/13/2021 8:30 am - CHRISTOPHER Arreola at [facility] * 08/17/2021 3:40 pm - Linda Cuello D.O. at [facility] Functional Status Description No Information Available Mental Status Description No Information Available Referrals Description No Information Available
--- OUTSIDE RECORDS SUMMARY | 2021-06-17 11:31 | CCD | Continuity of Care Document ---
Author Jess Rivas Organization Unknown Address Unknown Phone [phone] Care Team Providers Care Aerosol Supervisor Name Role Phone Linda Cuello D.O. AUTM [phone] Problems Active Problems Provider Date Elevated blood-pressure [...] CPT Code Status Date Vaccine Lot # [id number] Given 04/22/2020 Influenza Virus Vaccine, Quadrivalent, Split, Preservative Free [id number] Given 06/07/2017 Influenza Vaccin e Quadrivalent Preser/Antibiotic Free Im Use [id number] Given 06/08/2016 Tetanus, Diphthe jennyfer Toxoids/Acellular Pertussis Vaccine 7 Or > [id number] Vital Signs Date Vital Result Comment 08/16/2020 1:39pm BP Systolic 126 mmHg BP Diastolic 78 mmHg Height 63.3 inches 5'3.30" Weight 219.00 lb BMI (Body Mass Index) 38.4 kg/m2 Heart Rate 97 /min Respiratory Rate 19 /min Body Temperature 97.2 F O2 % BldC Oximetry 98 % [place] Body Weight 115 lb 01/26/2020 8:03am BP Systolic 128 mmHg BP Diastolic 74 mmHg Height 63.3 inches 5'3.30" Weight 204.00 lb BMI (Body Mass Index) 35.8 kg/m2 Heart Rate 105 /min Respiratory Rate 18 /min Body Temperature 97.4 F O2 % BldC Oximetry 97 % [place] Body Weight 115 lb Results Test Acquired Date Facility Test Result H/L Range Note Laboratory test finding 06/04/2021 [facility] Outpatient T esting (Registration) [address] [place] [address] [phone] Sars Covid-19 Amplification NEGATIVE Normal Nega tive 1 Ua W/ Reflex To Culture 06/04/2021 [facility] Outpatient T esting (Registration) [address] [place] [address] [phone] Appearance, Urine RFX CLOUDY High Clear Color, Urine RFX YELLOW Normal Yellow PH,Urine RFX 5.0 units Normal 5.0-9.0 Specific [place] Ur Auto RFX 1.018 Normal 1.002-1.035 Protein, [...] /LPF Normal 0-1 Reflex Urine Culture 06/04/2021 [facility] Outpatient Test ing (Registration) [address] [place] [address] [phone] Reflex Urine Culture FULL REPORT IN L <SEE NOTE> Norm al 2 Laboratory test finding 06/04/2021 [facility] Outpatient T esting (Registration) [address] [place] [address] [phone] Lactic Acid Sepsis Protocol 0.8 mmol/L Normal 0.4- 2.0 3 CBC With Differential 06/03/2021 [facility] Outpatient Mel ting (Registration) [address] [place] [address] [phone] White Blood Count 12.6 10 High 4.0-10.0 [...] 36.0-66.0 Lymph % 18.9 % Low 24.0-44.0 [place] % 8.1 % High 2.0-8.0 Eos % 0.6 % Normal 0.0-3.0 Baso % 0.3 % Normal 0.0-1.0 Immature Granulocyte % 0.2 % Normal 0-3.0 Nucleated Red Blood Cell % 0.0 % Normal 0-0 Neutrophils # 9.0 10 High 1.5-8.5 Lymph # 2.4 10 Normal 1.5-5.0 [place] # 1.0 10 High 0.0-0.8 Eos # 0.1 10 Normal 0.0-0.5 Baso # 0.0 10 Normal 0.0-0.2 Liver Profile 06/03/2021 [facility] Outpatient Testi ng (Registration) [address] [place] [address] [phone] Ast/Sgot 30 U/L Normal 7-37 Alt/SGPT 29 U/L Normal 12-78 Alkaline Phosphatase 112 U/L Normal 45-117 Bilirubin,Total 0.4 mg/dL Normal 0.2-1.0 Bilirubin,Direct < 0.1 mg/dL Normal 0.0-0.2 Total Protein 8.4 GM/DL High 6.4-8.2 Albumin 3.6 GM/DL Normal 3.2-5.2 Albumin/Globulin Ratio 0.8 Low 1.2-2.2 Basic Metabolic Profile 06/03/2021 [facility] Outpatient T esting (Registration) [address] [place] [address] [phone] Glucose, Fasting 93 mg/dL Normal 70-100 Blood [...] mg/dL Normal 8.5-10.1 Laboratory test finding 06/03/2021 [facility] Outpatient T esting (Registration) [address] [place] [address] [phone] Lipase 78 U/L Normal 73-393 1 A [...] pathogens. DISCLAIMER: Testing was performed using the [employer] SARS-CoV-2 test. This test was developed and its performance characteristics determined by [employer]. 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 Suggest recollection of specimen for more accurate test results. Procedures Description No Information Available Medical Devices Description No Information Available Encounters Description No Information Available Assessments Description No Information Available Plan of Treatment Future Appointment(s):* 06/13/2021 8:30 am - CHRISTOPHER Arreola at [facility] * 08/17/2021 3:40 pm - Linda Cuello D.O. at [facility] Functional Status Description No Information Available Mental Status Description No Information Available Referrals Description No Information Available
--- OUTSIDE RECORDS SUMMARY | 2021-06-17 13:40 | CCD ---
Author Author [facility] Organization [facility] Address Unknown Phone Unavailable Care Team Providers Care Broach Setter Name Role Phone MEDENT_806, NA Unavailable Unavailable [...] Unavailable KOKO-ROBIN, ERIKA DO Unavailable Unavailable KOKO-ROBIN, ERKIA DO Unavailable Unavailable KOKO-ROBIN, ERIKA DO Unavailable Unavailable KOKO-ROBIN, ERIKA DO Unavailable Unavailable KOKO-ROBIN, ERIKA DO Unavailable Unavailable KOKO-ROBIN, ERIKA DO Unavailable Unavailable KOKO-ROIBN, ERIKA DO Unavailable Unavailable KOKO-ROBIN, ERIKA DO [...] by Article 27-F of the [facility] Public Health law. If you continue you may have access to information: Regarding HIV / AIDS; Provided by facilities licensed or operated by the [facility] Office of Mental Health; or Provided by the [facility] Office for People With Developmental Disabilities. If such information is present, then the following [facility] mandated warning applies: This information has been [...] [facility] Unknown Female Problem [facility] ([facility]) Unknown Female Problem [facility] ([facility]) Unknown Female Problem [facility] ([facility]) Encounters Encounter Providers Location Date Indications Data Source(s ) Office Visit Attender: Ivonne Cohen/Radha/Zafar/Jessica licona 06/13/2021 12:30:00 PM EST [facility] ([facility] Outpatient Attender: Randy WHITE [facility] 06/13/2021 07:30:00 AM EST MED[facility] ([facility]) Outpatient Attender: Christiane Murillo 08/03/2020 07:25:28 PM EDT - 06/03/2021 09:26:32 PM EDT [facility] Outpatient Attender: RANDY canales 03/15/2021 01:00:00 PM EDT [facility] ([facility] [place] [address] [address] 12/28/2020 12:00:00 AM EDT eCW1 ([facility]) Outpatient Attender: ERIKA YING DO [facility] 08/16/2020 12:40:00 PM EST MED[facility] ([facility]) Outpatient Attender: BELL MEDENT_806 [facility] 04/22/2020 03:15:00 PM EDT [facility] ([facility]) Immunizations Vaccine Date Status Description Data Source(s) COVID-19 VACCINE Pfizer 05/04/2021 12:00:00 AM EDT completed [facility] Vaccine Series Complete: YESThis Data wa s Submitted to [facility] [employer]. COVID-19 VACC, MRNA(PFIZER)/PF 05/04/2021 12:00:00 AM EDT completed [facility] COVID-19 VACCINE Pfizer 09/08/2020 12:00:00 AM EST completed [facility] Vaccine Series Complete: YESThis Data wa s Submitted to [facility] [employer]. COVID-19 VACCINE Pfizer 08/18/2020 12:00:00 AM EST completed [facility] Vaccine Series Complete: NOThis Data was Submitted to [facility] [employer]. New in 2011. IIV4 04/22/2020 03:26:00 PM EDT completed [facility] ([facility]) Medications Medication Brand Name Start Date [...] Medications 03/15/2021 12:00:00 AM EDT completed [facility] ([facility]) Cephalexin 500 MG Oral Tablet Cephalexin 03/15/2021 12:00:00 AM EDT ORAL active [facility] ([facility]) 500 mg 03/15/2021 12:00:00 AM EDT tablet 40 TAKE TWO TABLETS BY MOUTH TWICE A DAY FOR 10 DAYS TAKE TWO TABLETS BY MOUTH TWICE A DAY FOR 10 DAYS SOLD : 03/15/2021 [facility] Immunization Administration Single Or Combination 04/22/2020 12:00:00 AM EDT completed MED[facility] ([facility]) Medication administered onsite Insurance Providers Payer name Policy type / Coverage type Policy ID Covered constitution party ID Covered constitution party's relationship to kennedy Policy [place] Plan Information [id number] [facility] [employer] [id number] Self [id number] [facility] Part B [id number] Self [id number] [employer] [id number] Self [id number] [facility] Part B [id number] Self [id number] [employer] [id number] S elf [id number] [employer] [id number] [facility] [id number] SP [id number] [employer] [id number] S elf [id number] [employer] [id number] S elf [id number] [employer] [id number] SP [id number] [employer] [id number] SP [id number] [employer] [id number] S elf [id number] [employer] [id number] Self [employer] [id number] S elf [employer] Part B [id number] Self [id number] [employer] O [id number] O [id number] Problems, Conditions, and Diagnoses Code Display Name Description Problem Type Effective Dates Data Source(s) Z87.440 History of chronic urinary tract infecti on History of chronic urinary tract infection Problem 06/13/2021 12:00:00 AM EST [facility] ([facility]) Z82.69 FH: Musculoskeletal disease FH: Musculoskeletal diseas e Problem 06/13/2021 12:00:00 AM EST [facility] ([facility]) Surgeries/Procedures Procedure Description Date Indications Data Source(s) OFFICE OUTPATIENT VISIT 25 MINUTES 06/13/2021 12:00:00 AM EST [facility] ([facility]) OFFICE OUTPATIENT NEW 30 MINUTES 03/15/2021 12:00:00 A M EDT [facility] ([facility]) Results ID Date Data Source [id number] 06/13/2021 09:12:00 AM EST [facility] ([facility]) Name Value Range Interpretation Code Description Data Stephanie rce(s) Supporting Document(s) Inhouse Leukocytes Laboratory test result MED[facility] ([facility]) Inhouse Nitrite Laboratory test result [facility] ([facility]) Inhouse Protein Laboratory test result [facility] ([facility]) Inhouse Urobilinogen Laboratory test result [facility] ([facility]) Inhouse Hemoglobin Laboratory test result [facility] ([facility]) Inhouse PH 6 MED[facility] ([facility]) Inhouse Ketones Laboratory test result [facility] ([facility]) Inhouse Specific [place] 1.010 [facility] ([facility]) Inhouse Glucose Laboratory test result [facility] ([facility]) Inhouse Bilirubin Laboratory test result [facility] ([facility]) ID Date Data Source [id number] 06/04/2021 11:00:00 AM EDT [facility] ([facility], ) Name Value Range Interpretation Code Description Data Stephanie rce(s) Supporting Document(s) Surgical pathology study Laboratory test result MED[facility] ([facility], ) FINAL DIAGNOSIS Appendix, appendectomy: Acute suppurative [...] fecalith in distal portion of the appendix. 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 - 06/06/[id number] Signed Amando Estrada MD 06/07/2021 1344 ID Date Data Source [id number] 06/04/2021 09:16:00 AM EDT [facility] ([facility]) Name Value Range Interpretation Code Description Data Stephanie rce(s) Supporting Document(s) Laboratory test finding (navigational concept) Laboratory test r esult Normal (applies to non-numeric results) [facility] ([facility]) A false negative result may occur if [...] pathogens. DISCLAIMER: Testing was performed using the [facility] SARS-CoV-2 test. This test was developed and its performance characteristics determined by [facility]. This test has not been FDA cleared [...] or revoked sooner. ID Date Data Source [id number] 06/04/2021 09:16:00 AM EDT [facility] Name Value Range Interpretation Code Description Data Stephanie rce(s) Supporting Document(s) SARS coronavirus 2 RNA [Presence] in Res piratory specimen by MARQUITA with probe detection NEGATIVE [facility] This lab was ordered by [facility] a nd reported by [facility]. ID Date Data Source [id number] 06/04/2021 07:17:00 AM EDT [facility] ([facility], ) Name Value Range Interpretation Code Description Data Stephanie rce(s) Supporting Document(s) Reflex Urine Culture Laboratory test result Norm al (applies to non-numeric results) [facility] ([facility], ) FULL REPORT IN LAB NOTES (eCW and Med[facility] ). SPECIMEN APPEARS CONTAMINATED ID Date Data Source [id number] 06/04/2021 07:17:00 AM EDT [facility] ([facility]) Name Value Range Interpretation Code Description Data Stephanie rce(s) Supporting Document(s) Reflex Urine Culture Laboratory test result Norm al (applies to non-numeric results) [facility] ([facility]) FULL REPORT IN LAB NOTES (eCW and [facility] ). SPECIMEN APPEARS CONTAMINATED ID Date Data Source [id number] 06/04/2021 07:17:00 AM EDT [facility] ([facility]) Name Value Range Interpretation Code Description Data Stephanie rce(s) Supporting Document(s) Color, Urine RFX Laboratory test result Normal ( applies to non-numeric results) [facility] ([facility]) Appearance, Urine RFX Laboratory test result Above high no rmal [facility] ([facility]) Specific [place] Ur Auto RFX 1.018 1.002-1.035 Nor mal (applies to non-numeric results) [facility] ([facility]) PH,Urine RFX 5.0 units 5.0-9.0 Normal (applies to non-numeric res ults) [facility] ([facility]) Glucose, Urine (Ua) Auto RFX Laboratory test result Normal (applies to non- numeric results) [facility] ([facility]) Protein, Urine Auto RFX Laboratory test result Above high normal [facility] ([facility]) Ketone, Urine Auto RFX Laboratory test result Above high n ormal [facility] ([facility]) Urobilinogen, Urine Auto RFX 0.2 mg/dL 0.0-2.0 Nor mal (applies to non-numeric results) [facility] ([facility]) Nitrite, Urine Auto RFX Laboratory test result N ormal (applies to non-numeric results) [facility] ([facility]) Bilirubin, Urine Auto RFX Laboratory test result Normal (applies to non- numeric results) [facility] ([facility]) Leukocyte Esterase Ur Auto RFX Laboratory test result Abov e high normal [facility] ([facility]) Blood, Urine Blood RFX Laboratory test result Above high n ormal [facility] ([facility]) WBC, Urine Auto RFX 50 /HPF 0-3 Above high normal [facility] ([facility]) RBC, Urine Auto RFX 11 /HPF 0-3 Above high normal [facility] ([facility]) Bacteria, Urine Auto RFX Laboratory test result Above high normal [facility] ([facility]) Mucus, Urine RFX Laboratory test result Normal ( applies to non-numeric results) [facility] ([facility]) Squam Epithelial Cell Ur Aurfx 6 /HPF 0-6 N ormal (applies to non-numeric results) [facility] ([facility]) Hyaline Cast, Urine Auto RFX 0 /LPF 0-1 Normal (appl ies to non-numeric results) [facility] ([facility]) ID Date Data Source [id number] 06/04/2021 07:12:00 AM EDT [facility] ([facility]) Name Value Range Interpretation Code Description Data Stephanie rce(s) Supporting Document(s) Lactate [Mass/volume] in Serum or Plasma 0.8 mmol/L 0.4-2.0 Normal (applies to non-numeric results) [facility] ([facility]) Y/N query for Sepsis Lactate Rule: Y ID Date Data Source [id number] 06/03/2021 10:22:00 PM EDT [facility] ([facility]) Name Value Range Interpretation Code Description Data Stephanie rce(s) Supporting Document(s) Lipase [Enzymatic activity/volume] in Serum or Plasma 78 U/L 73-393 Normal (applies to non-numeric results) [facility] ([facility]) ID Date Data Source [id number] 06/03/2021 10:22:00 PM EDT [facility] ([facility]) Name Value Range Interpretation Code Description Data Stephanie rce(s) Supporting Document(s) Glucose, Fasting 93 mg/dL 70-100 Normal (applies to non-numeric results) [facility] ([facility]) Blood Urea Nitrogen 9 mg/dL 7-18 Normal (applies to non-nume gonzález results) [facility] ([facility]) Glomerular Filtration Rate Laboratory test result Normal (applies to non- numeric results) [facility] ([facility]) <content>Units are mL/min/1.73 m2</content>
<content></content>
<content>Chronic Kidney Disease Staging per NKF:</content>
<content></content>
<content>Stage I & II GFR >=60 Normal to Mildly Decreased</content>
<content>Stage III GFR 30-59 Moderately Decreased</content>
<content>Stage IV GFR 15-29 Severely Decreased</content>
<content>Stage V GFR <15 Very Little GFR Left</content>
<content>ESRD GFR <15 on POLICY ANALYST</content>
<content></content> Creatinine For GFR 0.81 mg/dL 0.55-1.30 Normal (applies to non -numeric results) [facility] ([facility]) Sodium Level 140 meq/L 136-145 Normal (applies to non-numeric res ults) [facility] ([facility]) Potassium Serum 4.5 meq/L 3.5-5.1 Normal (applies to non-numeric results) [facility] ([facility]) Testing was performed on a SLIGHTLY hemo lyzed specimen. Suggest recollection of specimen for more accurate test results. Carbon Dioxide Level 26 meq/L 21-32 Normal (applies to non-num adali results) [facility] ([facility]) Chloride Level 108 meq/L 98-107 Above high normal [facility] ([facility]) Anion Gap 6 meq/L 8-16 Below low normal [facility] ( [facility]) Calcium Level 9.4 mg/dL 8.5-10.1 Normal (applies to non-numeric re sults) [facility] ([facility]) ID Date Data Source [id number] 06/03/2021 10:22:00 PM EDT [facility] ([facility]) Name Value Range Interpretation Code Description Data Stephanie rce(s) Supporting Document(s) Alt/SGPT 29 U/L 12-78 Normal (applies to non-numeric resul ts) [facility] ([facility]) Ast/Sgot 30 U/L 7-37 Normal (applies to non-numeric resul ts) [facility] ([facility]) Alkaline Phosphatase 112 U/L 45-117 Normal (applies to non-num adali results) [facility] ([facility]) Bilirubin,Direct Laboratory test result 0.0-0.2 Normal ( applies to non-numeric results) [facility] ([facility]) Bilirubin,Total 0.4 mg/dL 0.2-1.0 Normal (applies to non-numeric results) [facility] ([facility]) Total Protein 8.4 GM/DL 6.4-8.2 Above high normal [facility]E NT ([facility]) Albumin 3.6 GM/DL 3.2-5.2 Normal (applies to non-numeric resul ts) [facility] ([facility]) Albumin/Globulin Ratio 0.8 1.2-2.2 Below low normal [facility] ([facility]) ID Date Data Source [id number] 06/03/2021 10:22:00 PM EDT [facility] ([facility]) Name Value Range Interpretation Code Description Data Stephanie rce(s) Supporting Document(s) Red Blood Count 5.08 10 4.00-5.40 Normal (applies to non-numeric results) [facility] ([facility]) White Blood Count 12.6 10 4.0-10.0 Above high normal [facility] ([facility]) Hematocrit 45.3 % 36.0-47.0 Normal (applies to non-numeric resul ts) [facility] ([facility]) Hemoglobin 14.0 g/dL 12.0-15.5 Normal (applies to non-numeric resul ts) [facility] ([facility]) Mean Corpuscular Volume 89.2 fl 80.0-96.0 Normal ( applies to non-numeric results) [facility] ([facility]) Mean Corpuscular Hemoglobin 27.6 pg 27.0-33.0 Norm al (applies to non-numeric results) [facility] ([facility]) Mean Corpuscular HGB Conc 30.9 g/dL 32.0-36.5 Below low normal [facility] ([facility]) Red Cell Distribution Width 13.6 % 11.5-14.5 Norm al (applies to non-numeric results) [facility] ([facility]) Platelet Count, Automated 353 10 150-450 Normal (applies to non-numeric results) [facility] ([facility]) Neutrophils % 71.9 % 36.0-66.0 Above high normal MEDE NT ([facility]) Lymph % 18.9 % 24.0-44.0 Below low normal [facility] ( [facility]) Eos % 0.6 % 0.0-3.0 Normal (applies to non-numeric resul ts) [facility] ([facility]) [place] % 8.1 % 2.0-8.0 Above high normal [facility] ([facility]) Baso % 0.3 % 0.0-1.0 Normal (applies to non-numeric resul ts) [facility] ([facility]) Immature Granulocyte % 0.2 % 0-3.0 Normal (applies to non-n umeric results) [facility] ([facility]) Neutrophils # 9.0 10 1.5-8.5 Above high normal MEDE NT ([facility]) Nucleated Red Blood Cell % 0.0 % 0-0 Normal (applies to n on-numeric results) [facility] ([facility]) Lymph # 2.4 10 1.5-5.0 Normal (applies to non-numeric resul ts) [facility] ([facility]) [place] # 1.0 10 0.0-0.8 Above high normal [facility] ([facility]) Eos # 0.1 10 0.0-0.5 Normal (applies to non-numeric resul ts) [facility] ([facility]) Baso # 0.0 10 0.0-0.2 Normal (applies to non-numeric resul ts) [facility] ([facility]) ID Date Data Source [facility] DIGITAL / [facility] BILATERAL MAMMO SCREENING (Ultraso und if indicated) 12/28/2020 12:00:00 AM EDT eCW ([facility]) Name Value Range Interpretation Code Description Data Stephanie rce(s) Supporting Document(s) [facility] DIGITAL / [facility] BILAT ERAL MAMMO SCREENING (Ultrasound if indicated) [facility] ([facility]) ID Date Data Source [id number] 08/24/2020 07:14:00 AM EST MED[facility] ([facility]) Name Value Range Interpretation Code Description Data Stephanie rce(s) Supporting Document(s) White Blood Count 5.7 10 4.0-10.0 Normal (applies to non-numeri c results) [facility] ([facility]) Red Blood Count 4.73 10 4.00-5.40 Normal (applies to non-numeric results) [facility] ([facility]) Hemoglobin 12.9 g/dL 12.0-15.5 Normal (applies to non-numeric resul ts) [facility] ([facility]) Hematocrit 41.1 % 36.0-47.0 Normal (applies to non-numeric resul ts) [facility] ([facility]) Mean Corpuscular Volume 86.9 fl 80.0-96.0 Normal ( applies to non-numeric results) [facility] ([facility]) Mean Corpuscular Hemoglobin 27.3 pg 27.0-33.0 Norm al (applies to non-numeric results) [facility] ([facility]) Mean Corpuscular HGB Conc 31.4 g/dL 32.0-36.5 Below low normal [facility] ([facility]) Red Cell Distribution Width 13.8 % 11.5-14.5 Norm al (applies to non-numeric results) [facility] ([facility]) Neutrophils % 52.5 % 36.0-66.0 Normal (applies to non-numeric re sults) [facility] ([facility]) Platelet Count, Automated 357 10 150-450 Normal (applies to non-numeric results) [facility] ([facility]) [place] % 9.2 % 0.0-5.0 Above high normal [facility] ([facility]) Lymph % 34.5 % 24.0-44.0 Normal (applies to non-numeric resul ts) [facility] ([facility]) Immature Granulocyte % 0.2 % 0-3.0 Normal (applies to non-n umeric results) [facility] ([facility]) Eos % 2.5 % 0.0-3.0 Normal (applies to non-numeric resul ts) [facility] ([facility]) Baso % 1.1 % 0.0-1.0 Above high normal [facility] ([facility]) Nucleated Red Blood Cell % 0.0 % 0-0 Normal (applies to n on-numeric results) [facility] ([facility]) Neutrophils # 3.0 10 1.5-8.5 Normal (applies to non-numeric re sults) [facility] ([facility]) Eos # 0.1 10 0.0-0.5 Normal (applies to non-numeric resul ts) [facility] ([facility]) Lymph # 2.0 10 1.5-5.0 Normal (applies to non-numeric resul ts) [facility] ([facility]) [place] # 0.5 10 0.0-0.8 Normal (applies to non-numeric resul ts) [facility] ([facility]) Baso # 0.1 10 0.0-0.2 Normal (applies to non-numeric resul ts) [facility] ([facility]) ID Date Data Source [id number] 08/24/2020 07:14:00 AM EST [facility] ([facility]) Name Value Range Interpretation Code Description Data Stephanie rce(s) Supporting Document(s) Triglycerides Level 42 mg/dL Normal (applies to non-nume gonzález results) [facility] ([facility]) Cholesterol Level 165 mg/dL Normal (applies to non-numeri c results) [facility] ([facility]) HDL Cholesterol 71 mg/dL Normal (applies to non-numeric results) [facility] ([facility]) LDL Cholesterol 86 mg/dL Normal (applies to non-numeric results) [facility] ([facility]) Cholesterol Risk Ratio 2.323 Normal (applies to non-n umeric results) [facility] ([facility]) Non-HDL-C 94 mg/dL Normal (applies to non-numeric resul ts) [facility] ([facility]) ID Date Data Source [id number] 08/24/2020 07:14:00 AM EST [facility] ([facility]) Name Value Range Interpretation Code Description Data Stephanie rce(s) Supporting Document(s) Thyroid Stimulating Hormone 1.830 uIU/ML 0.358-3.740 Norm al (applies to non- numeric results) [facility] ([facility]) Free T4 1.11 ng/dL 0.76-1.46 Normal (applies to non-numeric resul ts) [facility] ([facility]) ID Date Data Source [id number] 08/24/2020 07:14:00 AM EST [facility] ([facility]) Name Value Range Interpretation Code Description Data Stephanie rce(s) Supporting Document(s) Blood Urea Nitrogen 13 mg/dL 7-18 Normal (applies to non-nume gonzález results) [facility] ([facility]) Glucose, Fasting 81 mg/dL 70-100 Normal (applies to non-numeric results) [facility] ([facility]) Glomerular Filtration Rate Laboratory test result Normal (applies to non- numeric results) [facility] ([facility]) <content>Units are mL/min/1.73 m2</content>
<content></content>
<content>Chronic Kidney Disease Staging per NKF:</content>
<content></content>
<content>Stage I & II GFR >=60 Normal to Mildly Decreased</content>
<content>Stage III GFR 30-59 Moderately Decreased</content>
<content>Stage IV GFR 15-29 Severely Decreased</content>
<content>Stage V GFR <15 Very Little GFR Left</content>
<content>ESRD GFR <15 on POLICY ANALYST</content>
<content></content> Creatinine For GFR 0.76 mg/dL 0.55-1.30 Normal (applies to non -numeric results) [facility] ([facility]) Sodium Level 142 meq/L 136-145 Normal (applies to non-numeric res ults) [facility] ([facility]) Chloride Level 105 meq/L 98-107 Normal (applies to non-numeric r esults) [facility] ([facility]) Potassium Serum 4.1 meq/L 3.5-5.1 Normal (applies to non-numeric results) [facility] ([facility]) Anion Gap 9 meq/L 8-16 Normal (applies to non-numeric resul ts) [facility] ([facility]) Carbon Dioxide Level 28 meq/L 21-32 Normal (applies to non-num adali results) [facility] ([facility]) Calcium Level 9.5 mg/dL 8.5-10.1 Normal (applies to non-numeric re sults) [facility] ([facility]) Alkaline Phosphatase 102 U/L 45-117 Normal (applies to non-num adali results) [facility] ([facility]) Alt/SGPT 30 U/L 12-78 Normal (applies to non-numeric resul ts) [facility] ([facility]) Ast/Sgot 18 U/L 7-37 Normal (applies to non-numeric resul ts) [facility] ([facility]) Total Protein 7.6 GM/DL 6.4-8.2 Normal (applies to non-numeric re sults) [facility] ([facility]) Bilirubin,Total 0.4 mg/dL 0.2-1.0 Normal (applies to non-numeric results) [facility] ([facility]) Albumin/Globulin Ratio 0.9 1.2-2.2 Below low normal [facility] ([facility]) Albumin 3.7 GM/DL 3.2-5.2 Normal (applies to non-numeric resul ts) [facility]) Procedure Social History Code Duration Value Status Description Data Source(s ) Smoking 12/28/2020 12:00:00 AM EDT Never Smoker completed Never S moker [email or web address] ([facility]) Smoking 08/16/2020 12:00:00 AM EST Never Smoked Cigarettes com pleted Never Smoked Cigarettes [facility] ([facility]) Vital Signs ID Date Data Source UNK Name Value Range Interpretation Code Description Data Source(s) Diastolic blood pressure 68 mm[Hg] 68 mm[Hg] [facility] ([facility]) Body temperature 98.5 [degF] 98.5 [degF] [facility] ([facility]) [place] body weight 120 [lb_av] 120 [lb_av] [facility] ([facility]) Body height 64 [in_i] 64 [in_i] [facility] ([facility]) 5'4" Systolic blood pressure 135 mm[Hg] 135 mm[Hg] M [facility] ([facility]) Body mass index (BMI) [Ratio] 38.7 kg/m2 38.7 k g/m2 [facility] ([facility]) Body weight 225.38 [lb_av] 225.38 [lb_av] [facility] Body weight 102.230 kg 102.230 kg [facility] ([facility]) Body surface area Derived from formula 2.06 m2 2.06 m2 [facility]) Oxygen saturation in Arterial blood by Pulse oximetry 99 % 99 % [facility] ([facility]) Body temperature 97.8 [degF] 97.8 [degF] [facility] ([facility]) [place] body weight 115 [lb_av] 115 [lb_av] [facility] ([facility]) Systolic blood pressure 128 mm[Hg] 128 mm[Hg] M [facility] ([facility]) Diastolic blood pressure 84 mm[Hg] 84 mm[Hg] [facility] ([facility]) Body height 63.3 [in_i] 63.3 [in_i] [facility] ([facility]) 5'3.30" Body weight 222.38 [lb_av] 222.38 [lb_av] [facility] T ([facility]) Body mass index (BMI) [Ratio] 39.0 kg/m2 39.0 k g/m2 [facility] ([facility]) Heart rate 107 /min 107 /min [facility] ([facility]) Respiratory rate 18 /min 18 /min [facility] ( [facility]) Diastolic blood pressure 82 mm[Hg] 82 mm[Hg] [facility] ([facility]) Systolic blood pressure 126 mm[Hg] 126 mm[Hg] M EDENT ([facility], [facility]) Oxygen saturation in Arterial blood by Pulse oximetry 99 % 99 % [facility] ([facility]) Body temperature 97.2 [degF] 97.2 [degF] [facility] ([facility]) Body weight 225.00 [lb_av] 225.00 [lb_av] [facility] T ([facility]) Body height 64 [in_i] 64 [in_i] [facility] ([facility], [facility]) 5'4" Body mass index (BMI) [Ratio] 38.6 kg/m2 38.6 k g/m2 [facility] ([facility]) Heart rate 98 /min 98 /min [facility] ([facility]) Respiratory rate 16 /min 16 /min [facility] ( [facility]) Body weight 228 [lb_av] 228 [lb_av] eCW1 ([facility]) Body weight 103.42 kg 103.42 kg eCW1 ([facility]) Body height 63.5 [in_i] 63.5 [in_i] [facility] ([facility]) Body mass index (BMI) [Ratio] 39.75 kg/m2 39.75 kg/m2 [facility] ([facility]) Systolic blood pressure 136 mm[Hg] 136 mm[Hg] e CW1 ([facility]) Diastolic blood pressure 88 mm[Hg] 88 mm[Hg] eCW1 ([facility]) Diastolic blood pressure 78 mm[Hg] 78 mm[Hg] [facility] ([facility]) Body height 63.3 [in_i] 63.3 [in_i] [facility] ([facility]) 5'3.30" Body weight 219.00 [lb_av] 219.00 [lb_av] LEWIS T ([facility]) Heart rate 97 /min 97 /min HUM[facility]O ([facility]) Respiratory rate 19 /min 19 /min [facility]HE[facility] ( [facility]) Body temperature 97.2 [degF] 97.2 [degF] [facility] ([facility]) Oxygen saturation in Arterial blood by Pulse oximetry 98 % 98 % [facility] ([facility]) Body mass index (BMI) [Ratio] 38.4 kg/m2 38.4 k g/m2 [facility] ([facility]) [place] body weight 115 [lb_av] 115 [lb_av] MED[facility] T ([facility]) Systolic blood pressure 126 mm[Hg] 126 mm[Hg] 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
== END 2021-06-04 16:45 | disposition home or self-care (01) ==
LOC: M ED 21:45 → M SDC 21:45 → M ED 06-04 10:15 → M SDC 06-04 10:29 → M MS5PR 06-04 12:10 → M SDC 06-04 16:45 → M MS5PR 06-04 16:45
PROVIDERS: ATTEND Surgery
DX: K35.890 Other acute appendicitis without perforation or gangrene (principal)
CPT/HCPCS: 36415; 44970; 74177; 80048; 80076; 81001; 83605; 83690; 85025; 87086; 88304; 96374; 99284; J1100; J1885; J2250; J2405; J2765; J3010; Q9967; U0002

== ENCOUNTER → 2021-06-22 | Outpatient (CLI) | payer OTHER ==
[~2021-06-22] MED LIST: AMOX500T2 PO; OXYC1TAB23 PO
[2021-06-22 11:14] LABS: BASO # 0.1 10^3/uL (0.0-0.2); BASO % 1.2 % (0.0-1.0); EOS # 0.2 10^3/uL (0.0-0.5); EOS % 2.3 % (0.0-3.0); HEMATOCRIT 43.7 % (36.0-47.0); HEMOGLOBIN 13.3 g/dl (12.0-15.5); LYMPH # 2.2 10^3/uL (1.5-5.0); LYMPH % 33.5 % (24.0-44.0); MEAN CORPUSCULAR HGB CONC 30.4 g/dl (32.0-36.5); MEAN CORPUSCULAR VOLUME 88.6 fl (80.0-96.0); MONO # 0.6 10^3/uL (0.0-0.8); MONO % 8.6 % (2.0-8.0); NEUTROPHILS # 3.6 10^3/uL (1.5-8.5); NEUTROPHILS % 54.1 % (36.0-66.0); PLATELET COUNT, AUTOMATED 445 10^3/uL (150-450); RED BLOOD COUNT 4.93 10^6/uL (4.00-5.40); WHITE BLOOD COUNT 6.6 10^3/uL (4.0-10.0)
[2021-06-22 11:45] LABS: ALBUMIN 3.7 GM/DL (3.2-5.2); ALT/SGPT 46 U/L (12-78); BILIRUBIN,TOTAL 0.6 MG/DL (0.2-1.0); BLOOD UREA NITROGEN 11 MG/DL (7-18); CALCIUM LEVEL 9.2 MG/DL (8.5-10.1); CARBON DIOXIDE LEVEL 29 MEQ/L (21-32); CHLORIDE LEVEL 107 MEQ/L (98-107); CHOLESTEROL LEVEL 192 MG/DL (<200); CHOLESTEROL RISK RATIO 2.953 (<5); CREATININE FOR GFR 0.67 MG/DL (0.55-1.30); GLOMERULAR FILTRATION RATE > 60.0 (>51); GLUCOSE, FASTING 67 MG/DL (70-100); HDL CHOLESTEROL 65 MG/DL (>40); LDL CHOLESTEROL 118 MG/DL (<100); NON-HDL-C 127 MG/DL; POTASSIUM SERUM 4.6 MEQ/L (3.5-5.1); SODIUM LEVEL 141 MEQ/L (136-145); TOTAL PROTEIN 8.1 GM/DL (6.4-8.2); TRIGLYCERIDES LEVEL 46 MG/DL (<150)
[2021-06-22 12:39] LABS: HEMOGLOBIN A1c 5.3 %
== END ==
LOC: M LAB 07:25
PROVIDERS: ATTEND Physician Assistant
DX: Z13.220 Encounter for screening for lipoid disorders (principal); Z82.69 Family history of other diseases of the musculoskeletal system and connective tissue; R73.01 Impaired fasting glucose

== ENCOUNTER → 2021-08-19 | Outpatient (CLI) | payer OTHER | LOC: M LABSMTC 09:37 | PROVIDERS: ATTEND Anesthesiology | DX: Z01.812 Encounter for preprocedural laboratory examination (principal); Z20.822 Contact with and (suspected) exposure to COVID-19 ==

== ENCOUNTER 2021-08-24 06:41 | Day surgery (SDC) | payer OTHER ==
[~2021-08-24] VITALS: Ht 162.6 cm; Wt 100.9 kg
[~2021-08-24 06:41] MED LIST changes: +NS 1,000 ML IV ONE
[2021-08-24] MEDS ORDERED: propofoL 200 MG/20 ML VIAL As Ordered ONE (08:02)
[2021-08-24 08:23] VITALS: BP 141/59
== END 2021-08-24 08:25 | disposition home or self-care (01) ==
LOC: M OPP 06:41
PROVIDERS: ATTEND Surgery
DX: Z12.11 Encounter for screening for malignant neoplasm of colon (principal); K57.30 Diverticulosis of large intestine without perforation or abscess without bleeding

== ENCOUNTER → 2021-12-29 | Outpatient (CLI) | payer OTHER ==
[~2021-12-29] MED LIST changes: -NS 1,000 ML IV ONE
== END ==
LOC: M WHC 08:47
PROVIDERS: ATTEND Specialist
DX: Z12.31 Encounter for screening mammogram for malignant neoplasm of breast (principal); Z80.42 Family history of malignant neoplasm of prostate; Z80.49 Family history of malignant neoplasm of other genital organs

== ENCOUNTER → 2021-12-29 | Outpatient (REF) | payer OTHER | LOC: M SFHCWAGY 12:52 | PROVIDERS: ATTEND Specialist | DX: Z12.4 Encounter for screening for malignant neoplasm of cervix (principal) | CPT/HCPCS: 87624; G0123 ==

== ENCOUNTER → 2022-08-19 | Outpatient (CLI) | payer OTHER ==
[2022-08-19 09:33] LABS: BASO # 0.1 10^3/uL (0.0-0.2); BASO % 0.8 % (0.0-1.0); EOS # 0.2 10^3/uL (0.0-0.5); EOS % 2.4 % (0.0-3.0); HEMATOCRIT 44.9 % (36.0-47.0); HEMOGLOBIN 13.9 g/dl (12.0-15.5); LYMPH # 2.4 10^3/uL (1.5-5.0); LYMPH % 37.5 % (24.0-44.0); MEAN CORPUSCULAR HEMOGLOBIN 27.2 pg (27.0-33.0); MEAN CORPUSCULAR VOLUME 87.9 fl (80.0-96.0); MONO # 0.5 10^3/uL (0.0-0.8); NEUTROPHILS # 3.3 10^3/uL (1.5-8.5); NEUTROPHILS % 51.1 % (36.0-66.0); PLATELET COUNT, AUTOMATED 407 10^3/uL (150-450); RED BLOOD COUNT 5.11 10^6/uL (4.00-5.40); WHITE BLOOD COUNT 6.4 10^3/uL (4.0-10.0)
[2022-08-19 09:59] LABS: ALBUMIN 3.6 G/DL (3.2-5.2); ALKALINE PHOSPHATASE 110 U/L (46-116); ALT/SGPT 33 U/L (7.0-40); AST/SGOT 24 U/L (<34); BILIRUBIN,TOTAL 0.5 MG/DL (0.3-1.2); BLOOD UREA NITROGEN 12 MG/DL (9-23); CALCIUM LEVEL 9.4 MG/DL (8.5-10.1); CARBON DIOXIDE LEVEL 28 MMOL/L (20-31); CHLORIDE LEVEL 106 MMOL/L (98-107); CHOLESTEROL LEVEL 154 MG/DL (<200); CHOLESTEROL RISK RATIO 2.44 (<5); CREATININE FOR GFR 0.71 MG/DL (0.55-1.30); GLOMERULAR FILTRATION RATE > 60.0 (>51); GLUCOSE, FASTING 81 MG/DL (60-100); HDL CHOLESTEROL 62.9 MG/DL (>40); LDL CHOLESTEROL 80.1 MG/DL (<100); NON-HDL-C 91 MG/DL; POTASSIUM SERUM 4.2 MMOL/L (3.5-5.1); SODIUM LEVEL 141 MMOL/L (136-145); TOTAL PROTEIN 7.8 G/DL (5.7-8.2); TRIGLYCERIDES LEVEL 55 MG/DL (<150)
[2022-08-19 10:01] LABS: FREE T4 1.04 NG/DL (0.89-1.76)
== END ==
LOC: M LAB 08:33
PROVIDERS: ATTEND Family Medicine
DX: Z13.220 Encounter for screening for lipoid disorders (principal); Z13.29 Encounter for screening for other suspected endocrine disorder; Z13.0 Encounter for screening for diseases of the blood and blood-forming organs and certain disorders involving the immune mechanism

== ENCOUNTER → 2023-01-24 | Outpatient (CLI) | payer OTHER | LOC: M WHC 07:39 | PROVIDERS: ATTEND Specialist | DX: Z12.31 Encounter for screening mammogram for malignant neoplasm of breast (principal) ==

== ENCOUNTER → 2023-08-31 | Outpatient (CLI) | payer OTHER ==
[2023-08-31 07:28] LABS: BASO # 0.1 10^3/uL (0.0-0.2); EOS # 0.2 10^3/uL (0.0-0.5); EOS % 2.6 % (0.0-3.0); HEMATOCRIT 41.3 % (36.0-47.0); HEMOGLOBIN 13.1 g/dl (12.0-15.5); MEAN CORPUSCULAR HEMOGLOBIN 28.3 pg (27.0-33.0); MEAN CORPUSCULAR HGB CONC 31.7 g/dl (32.0-36.5); MEAN CORPUSCULAR VOLUME 89.2 fl (80.0-96.0); MONO # 0.6 10^3/uL (0.0-0.8); NEUTROPHILS # 3.3 10^3/uL (1.5-8.5); NEUTROPHILS % 54.2 % (36.0-66.0); PLATELET COUNT, AUTOMATED 357 10^3/uL (150-450); RED BLOOD COUNT 4.63 10^6/uL (4.00-5.40); WHITE BLOOD COUNT 6.1 10^3/uL (4.0-10.0)
[2023-08-31 07:45] LABS: ALBUMIN 3.4 G/DL (3.2-5.2); ALKALINE PHOSPHATASE 92 U/L (46-116); ALT/SGPT 39 U/L (7.0-40); AST/SGOT 19 U/L (<34); BILIRUBIN,TOTAL 0.6 MG/DL (0.3-1.2); BLOOD UREA NITROGEN 13 MG/DL (9-23); CALCIUM LEVEL 9.5 MG/DL (8.5-10.1); CARBON DIOXIDE LEVEL 30 MMOL/L (20-31); CHLORIDE LEVEL 108 MMOL/L (98-107); CHOLESTEROL LEVEL 158 MG/DL (<200); CREATININE FOR GFR 0.69 MG/DL (0.55-1.30); GLOMERULAR FILTRATION RATE > 60.0 (>51); GLUCOSE, FASTING 85 MG/DL (60-100); HDL CHOLESTEROL 58.5 MG/DL (>40); LDL CHOLESTEROL 88.1 MG/DL (<100); NON-HDL-C 99.5 MG/DL; POTASSIUM SERUM 4.3 MMOL/L (3.5-5.1); SODIUM LEVEL 145 MMOL/L (136-145); TOTAL PROTEIN 7.2 G/DL (5.7-8.2); TRIGLYCERIDES LEVEL 57 MG/DL (<150)
[2023-08-31 07:46] LABS: FREE T4 1.06 NG/DL (0.89-1.76); THYROID STIMULATING HORMONE 1.911 uIU/ML (0.55-4.78)
== END ==
LOC: M LAB 06:24
PROVIDERS: ATTEND Family Medicine
DX: Z13.220 Encounter for screening for lipoid disorders (principal); Z13.0 Encounter for screening for diseases of the blood and blood-forming organs and certain disorders involving the immune mechanism; Z13.29 Encounter for screening for other suspected endocrine disorder

== ENCOUNTER → 2023-11-13 | Outpatient (CLI) | payer OTHER ==
[~2023-11-13] MED LIST changes: +GASTROGRAFIN SOLUTION 30ML As Ordered ONE; +ISOVUE-370 76% 100ML VIAL As Ordered ONE
== END ==
LOC: M RAD 09:09
PROVIDERS: ATTEND Family Medicine
DX: K76.0 Fatty (change of) liver, not elsewhere classified (principal); N28.1 Cyst of kidney, acquired; R10.32 Left lower quadrant pain
CPT/HCPCS: 74177; Q9963; Q9967

== ENCOUNTER → 2024-06-16 | Outpatient (REF) | payer OTHER ==
[~2024-06-16] MED LIST changes: -GASTROGRAFIN SOLUTION 30ML As Ordered ONE; -ISOVUE-370 76% 100ML VIAL As Ordered ONE
[2024-06-18 14:02] LABS: HPV APTIMA Not Detected (Not Detected)
== END ==
LOC: M SFHCWAGY 13:31
PROVIDERS: ATTEND Specialist
DX: Z12.4 Encounter for screening for malignant neoplasm of cervix (principal)
CPT/HCPCS: 87624; G0123

== ENCOUNTER → 2024-06-16 | Outpatient (CLI) | payer OTHER | LOC: M WHC 08:30 | PROVIDERS: ATTEND Specialist | DX: Z12.31 Encounter for screening mammogram for malignant neoplasm of breast (principal); R92.313 Mammographic fatty tissue density, bilateral breasts ==

== ENCOUNTER → 2024-09-23 | Outpatient (CLI) | payer OTHER | LOC: M RAD 08:10 | PROVIDERS: ATTEND Physician Assistant | DX: N20.0 Calculus of kidney (principal) ==